=== PATIENT | male | born 1960 | race Caucasian/White ===

== ENCOUNTER → 2017-07-31 | Outpatient (CLI) | payer MEDICAID ==
[2017-07-31 07:55] LABS: Basophils # (A) 0.1 k/uL (0-0.2); Basophils % (A) 1 %; Eosinophils # (A) 0.5 k/uL (0-0.7); Eosinophils % (A) 5 %; HCT 47.2 % (39.0-53.0); HGB 14.9 gm/dL (13.0-17.5); Lymphocytes # (A) 2.5 k/uL (1.0-4.8); Lymphocytes % (A) 26 %; MCH 30.1 pg (25.0-35.0); MCHC 31.7 g/dL (31.0-37.0); Mean Platelet Volume 7.7; Monocytes # (A) 0.6 k/uL (0-1.0); Monocytes % (A) 6 %; Neutrophils # (A) 5.7 k/uL (1.3-7.7); Neutrophils % (A) 59 %; Platelet Count 273 k/uL (150-450); RBC 4.96 m/uL (4.30-5.90); RDW 12.4 % (11.5-15.5); WBC 9.7 k/uL (3.8-10.6)
[2017-07-31 10:37] LABS: ALT 30 U/L (21-72); AST 27 U/L (17-59); Albumin 4.7 g/dL (3.5-5.0); Alkaline Phosphatase 76 U/L (38-126); Anion Gap 10 mmol/L; Bilirubin, Delta 0.3 mg/dL (0.0-0.2); Bilirubin,Unconjugated 0.2 mg/dL (0.0-1.1); Blood Urea Nitrogen 19 mg/dL (9-20); Calcium 10.5 mg/dL (8.4-10.2); Carbon Dioxide 32 mmol/L (22-30); Chloride 103 mmol/L (98-107); Cholesterol 237 mg/dL (<200); Glucose 98 mg/dL (74-99); HDL Cholesterol 48 mg/dL (40-60); LDL Cholesterol,Calculated 168 mg/dL (0-99); Potassium 4.5 mmol/L (3.5-5.1); Sodium 145 mmol/L (137-145); Total Bilirubin 0.5 mg/dL (0.2-1.3); Total Protein 7.6 g/dL (6.3-8.2); Triglycerides 104 mg/dL (<150)
[2017-07-31 10:51] LABS: T4, Free (Free Thyroxine) 1.05 ng/dL (0.78-2.19)
[2017-07-31 11:05] LABS: Prostate Specific Antigen 0.69 ng/mL (0.00-4.00)
== END | disposition home or self-care (01) ==
LOC: LABWHC1 07:08
PROVIDERS: ATTEND Family Medicine
DX: Z00.00 Encounter for general adult medical examination without abnormal findings (principal)
CPT/HCPCS: 36415; 80053; 80061; 82248; 84153; 84439; 84443; 85025

== ENCOUNTER → 2019-03-31 | Outpatient (CLI) | payer MEDICAID ==
[2019-03-31 07:40] LABS: Basophils # (A) 0.1 k/uL (0-0.2); Basophils % (A) 1 %; Eosinophils # (A) 0.4 k/uL (0-0.7); Eosinophils % (A) 5 %; HCT 44.1 % (39.0-53.0); HGB 14.8 gm/dL (13.0-17.5); Lymphocytes # (A) 2.6 k/uL (1.0-4.8); Lymphocytes % (A) 31 %; MCH 30.2 pg (25.0-35.0); MCHC 33.6 g/dL (31.0-37.0); MCV 89.7 fL (80.0-100.0); Mean Platelet Volume 6.6; Monocytes # (A) 0.5 k/uL (0-1.0); Monocytes % (A) 6 %; Neutrophils # (A) 4.6 k/uL (1.3-7.7); Neutrophils % (A) 55 %; Platelet Count 314 k/uL (150-450); RBC 4.92 m/uL (4.30-5.90); RDW 12.6 % (11.5-15.5); WBC 8.4 k/uL (3.8-10.6)
[2019-03-31 11:31] LABS: African American GFR (CKD) 76.3 (60.0-200.0); Albumin 4.9 g/dL (3.80-4.90); Albumin/Globulin Ratio 2.45 (1.60-3.17); Anion Gap 10.5 mmol/L (4.00-12.00); BUN/Creat Ratio 11.67 Ratio (12.00-20.00); Calcium 10.3 mg/dL (8.7-10.3); Carbon Dioxide 28.5 mmol/L (21.6-31.8); Chol/HDL Ratio 4.45; LDL Cholesterol,Calculated 169.6 mg/dL (0.0-131.0); Potassium 4.5 mmol/L (3.5-5.5); Total Bilirubin 0.7 mg/dL (0.2-1.2); Total Protein 6.9 g/dL (6.2-8.2); VLDL Calculation 20.4 mg/dL (5.00-40.00)
== END | disposition home or self-care (01) ==
LOC: LABWHC1 06:58
PROVIDERS: ATTEND Family Medicine
DX: Z00.00 Encounter for general adult medical examination without abnormal findings (principal); E78.00 Pure hypercholesterolemia, unspecified; R35.1 Nocturia
CPT/HCPCS: 36415; 80053; 80061; 84153; 85025

== ENCOUNTER → 2021-01-17 | Outpatient (CLI) | payer MEDICAID ==
[2021-01-17 14:57] LABS: Basophils # (A) 0.05 X 10*3/uL (0.00-0.10); Basophils % (A) 0.5 %; Eosinophils # (A) 0.33 X 10*3/uL (0.04-0.35); Eosinophils % (A) 3.6 %; HCT 43.5 % (39.6-50.0); HGB 13.4 g/dL (13.0-17.0); Lymphocytes # (A) 2.01 X 10*3/uL (0.90-5.00); Lymphocytes % (A) 21.9 %; MCH 28.8 pg (27.0-32.0); MCHC 30.8 g/dL (32.0-37.0); MCV 93.5 fL (80.0-97.0); Mean Platelet Volume 11.2 fL (9.5-12.2); Monocytes % (A) 8.7 %; Neutrophils # (A) 5.95 X 10*3/uL (1.80-7.70); Platelet Count 274 X 10*3/uL (140-440); RBC 4.65 X 10*6/uL (4.40-5.60); RDW 13.4 % (11.5-14.5); WBC 9.17 X 10*3/uL (4.50-10.00)
[2021-01-17 15:57] LABS: African American GFR (CKD) 93.7 (60.0-200.0); Albumin 4.3 g/dL (3.80-4.90); Albumin/Globulin Ratio 2.05 (1.60-3.17); Chol/HDL Ratio 5.09; Globulin 2.1 g/dL (1.6-3.3); LDL Cholesterol,Calculated 148.4 mg/dL (0.0-131.0); Non-African American GFR(CKD) 80.9 (60.0-200.0); Potassium 4.1 mmol/L (3.5-5.5); Total Bilirubin 0.9 mg/dL (0.3-1.2); Total Protein 6.4 g/dL (6.2-8.2); VLDL Calculation 27.6 mg/dL (5.00-40.00)
[2021-01-17 16:04] LABS: Prostate Specific Antigen 0.5 ng/mL (0.0-4.5)
== END | disposition home or self-care (01) ==
LOC: LABWHC1 09:43
PROVIDERS: ATTEND Family Medicine
DX: Z00.00 Encounter for general adult medical examination without abnormal findings (principal); E78.00 Pure hypercholesterolemia, unspecified
CPT/HCPCS: 36415; 80053; 80061; 84153; 85025

== ENCOUNTER → 2021-05-19 | Outpatient (CLI) | payer MEDICAID ==
[2021-05-19 19:34] LABS: LDL Cholesterol,Calculated 118.1 mg/dL (0.0-131.0)
== END | disposition home or self-care (01) ==
LOC: LABWHC1 08:58
PROVIDERS: ATTEND Family Medicine
DX: E78.5 Hyperlipidemia, unspecified (principal)
CPT/HCPCS: 36415; 80061

== ENCOUNTER → 2023-02-15 | Outpatient (CLI) | payer MEDICAID ==
[2023-02-15 11:17] LABS: Basophils # (A) 0.07 X 10*3/uL (0.00-0.10); Basophils % (A) 0.8 %; Eosinophils # (A) 0.44 X 10*3/uL (0.04-0.35); Eosinophils % (A) 4.9 %; HCT 44.6 % (39.6-50.0); HGB 14.3 d/dL (13.0-17.0); Lymphocytes % (A) 30.1 %; MCH 30.1 pg (27.0-32.0); MCHC 32.1 d/dL (32.0-37.0); MCV 93.9 FL (80.0-97.0); Mean Platelet Volume 11.3 FL (9.5-12.2); Monocytes # (A) 0.81 X 10*3/uL (0.20-1.00); NRBC Per 100 WBC 0 X 10*3/uL (0.00-0.01); Neutrophils # (A) 4.93 X 10*3/uL (1.80-7.70); Neutrophils % (A) 54.9 %; Platelet Count 269 X 10*3/uL (140-440); RBC 4.75 X 10*6/uL (4.40-5.60); RDW 13.2 % (11.5-14.5); WBC 8.98 X 10*3/uL (4.50-10.00)
[2023-02-15 11:24] LABS: ALT 31 U/L (10-49); AST 27 U/L (14-35); Albumin/Globulin Ratio 2.08 Ratio (1.60-3.17); Alkaline Phosphatase 91 U/L (41-126); BUN/Creat Ratio 9.58 Ratio (12.00-20.00); Blood Urea Nitrogen 11.5 mg/dL (9.0-27.0); Calcium 10.2 mg/dL (8.7-10.3); Carbon Dioxide 25.8 mmol/L (21.6-31.8); Chloride 105 mmol/L (96-109); Chol/HDL Ratio 3.16 Ratio; Globulin 2.4 d/dL (1.6-3.3); Glucose 104 mg/dL (70-110); LDL Cholesterol,Calculated 86.9 mg/dL (0.0-131.0); Potassium 4.1 mmol/L (3.5-5.5); Sodium 145 mmol/L (135-145); Total Bilirubin 0.6 mg/dL (0.3-1.2); Total Protein 7.4 d/dL (6.2-8.2)
== END | disposition home or self-care (01) ==
LOC: LABWHC1 07:20
PROVIDERS: ATTEND Family Medicine
DX: Z12.5 Encounter for screening for malignant neoplasm of prostate (principal); E78.5 Hyperlipidemia, unspecified
CPT/HCPCS: 80061; 80053; 85025; 36415; G0103

== ENCOUNTER → 2023-04-30 | Outpatient (CLI) | payer MEDICAID ==
--- NOTE | 2023-04-30 10:52 | CT ---
EXAMINATION TYPE: CT abdomen w con CT DLP: 1165 mGycm, Automated exposure control for dose reduction was used. DATE OF EXAM: 04/30/2023 10:38 AM COMPARISON: None CLINICAL INDICATION:Male, 62 years old with history of R14.0 ABDOMINAL BLOATING; Bloating TECHNIQUE: Standard CT of the abdomen following the administration of 100 cc of Isovue 300 IV contr ast material and oral contrast. Coronal and sagittal reformats were performed. FINDINGS: LOWER CHEST: Unremarkable ABDOMEN LIVER: Several cysts identified with largest in the left hepatic lobe measuring up to 2.0 cm. Additio nal innumerable subcentimeter hypodense foci likely representing cysts or biliary hamartomas. GALLBLADDER AND BILE DUCTS: Unremarkable. PANCREAS: Unremarkable. SPLEEN: Subcentimeter hypodense focus identified which is too small characters but likely represents a benign process. ADRENAL GLANDS: Unremarkable. KIDNEYS AND URETERS: No evidence of hydronephrosis or renal calculus. The kidneys enhance symmetrical ly. Subcentimeter hypodense focus within the left mid kidney which is too small characters but likely represents a cyst. Contrast demonstrated within both collecting systems on the delayed phase. Circum aortic left renal vein. STOMACH AND BOWEL: Stomach appears unremarkable. Contrast reaches the mid small bowel. There is pneum atosis involving the ascending colon. Fluid and gas-filled dilated diffuse small bowel identified norbert suring up to 4.7 cm. Stool and gas identified within the visualized portions of the colon with transi tion at the visualized sigmoid. The ascending colon measures up to 8.6 cm in diameter. No bowel wall thickening identified or surrounding fat stranding. The appendix is within normal limits. PERITONEUM: No evidence of pneumoperitoneum or free fluid. VASCULATURE: No evidence of aortic aneurysm. The visualized vasculature appears widely patent. MUSCULOSKELETAL: No acute osseous abnormalities LYMPH NODES: No gross evidence for lymphadenopathy. SOFT TISSUE/ABDOMINAL WALL: Unremarkable IMPRESSION: Gas and fluid-filled dilated small bowel and colon suggesting an ileus versus possible distal colonic obstruction. Nonspecific pneumatosis identified within the ascending colon. Could be seen with ische chikis however doubtful. Consider further evaluation with CT abdomen pelvis with IV and oral contrast.
== END | disposition home or self-care (01) ==
LOC: RADCTMAIN 09:15
PROVIDERS: ATTEND Family Medicine
DX: K63.89 Other specified diseases of intestine (principal); R14.0 Abdominal distension (gaseous)
CPT/HCPCS: 74160; Q9967

== ENCOUNTER 2023-06-13 12:04 | Inpatient (IN) | payer MEDICAID ==
--- NOTE | 2023-06-13 13:10 | ED ---
General Adult HPI - General Source: patient, RN notes reviewed Mode of arrival: ambulatory Limitations: no limitations <Chelsea Ward - Last Filed: 06/13/23 13:11> <James Li - Last Filed: 06/13/23 17:29> - General Chief complaint: Abdominal Pain Stated complaint: abd pain Time Seen by Provider: 06/13/23 13:11 - History of Present Illness Initial comments: 62-year-old male presents to the emergency department for chief complaint of left sided abdominal pain. He states it has been dealing with this since April and has gone to see Dr. Del Rosario multiple times. The pain has been worse for the past 2 days. He states that he was initially diagnosed with colitis then with diverticulitis. He has not been on antibiotics. Denies fever. Admits to loose stools. (Chelsea Ward) This is a 62-year-old male who presents emergency Department complaining of abdominal pain for last 2 months. Patient stated he had a CAT scan and was told he probably had diverticulitis. Patient states his abdomen is getting more distended over that period of time he is having occasional pain but no nausea or vomiting. Patient states she's not had any gas passing or stool recently. Patient denies any fever or chills. Patient states as of the last couple days he started having some difficulty breathing particularly with exertion. Patient states eating and drinking but not anywhere near as much is normal. Patient states his last colonoscopy was 10 years ago. Patient denies any back pain. (James Li) - Related Data Home Medications Medication Instructions Recorded Confirmed Atorvastatin [Lipitor] 40 mg PO PC-SUPPER 06/13/23 06/13/23 Cetirizine HCl [Zyrtec] 10 mg PO DAILY 06/13/23 06/13/23 Allergies Allergy/AdvReac Type Severity Reaction Status Date / Time No Known Allergies Allergy Verified 06/13/23 15:56 Review of Systems ROS Other: All systems not noted in ROS Statement are negative. <Chelsea Ward - Last Filed: 06/13/23 13:11> ROS Other: All systems not noted in ROS Statement are negative. <James Li - Last Filed: 06/13/23 17:29> ROS Statement: Those systems with pertinent positive or pertinent negative responses have been documented in the HPI. Past Medical History Past Medical History: GI Bleed History of Any Multi-Drug Resistant Organisms: None Reported Past Surgical History: Hernia Repair Past Psychological History: No Psychological Hx Reported Smoking Status: Never smoker Past Alcohol Use History: Rare Past Drug Use History: None Reported <Chelsea Ward - Last Filed: 06/13/23 13:11> General Exam Limitations: no limitations <Chelsea Ward - Last Filed: 06/13/23 13:11> <James Li - Last Filed: 06/13/23 17:29> - General Exam Comments Initial Comments: Visual Physical Exam Vital signs reviewed General: Well-appearing, nontoxic, no acute distress. Head: Normocephalic, atraumatic Eyes: PERRLA, EOMI ENT: Airway patent Chest: Nonlabored breathing Skin: No visual rash, normal skin tone Neuro: Alert and oriented 3 Musculoskeletal: No gross abnormalities (Chelsea Ward) GENERAL: Patient is well-developed and well-nourished. Patient is nontoxic and well-hydrated and is in mild distress. ENT: Neck is soft and supple. No significant lymphadenopathy is noted. Oropharynx is clear. Moist mucous membranes. Neck has full range of motion without eliciting any pain. EYES: The sclera were anicteric and conjunctiva were pink and moist. Extraocular movements were intact and pupils were equal round and reactive to light. Eyelids were unremarkable. PULMONARY: Unlabored respirations. Good breath sounds bilaterally. No audible rales rhonchi or wheezing was noted. CARDIOVASCULAR: She was tachycardic at about 130 beats a minute ABDOMEN: Abdomen is significantly distended. Bowel sounds are hyperactive SKIN: Skin is clear with no lesions or rashes and otherwise unremarkable. NEUROLOGIC: Patient is alert and oriented x3. Cranial nerves II through XII are grossly intact. Motor and sensory are also intact. Normal speech, volume and content. Symmetrical smile. MUSCULOSKELETAL: Normal extremities with adequate strength and full range of motion. Scant edema bilaterally LYMPHATICS: No significant lymphadenopathy is noted PSYCHIATRIC: Normal psychiatric evaluation. (James Li) Course Vital Signs 06/13/23 06/13/23 06/13/23 12:11 14:28 15:35 Temperature 97.5 F L Pulse Rate 142 H 125 H 109 H Respiratory 20 18 18 Rate Blood Pressure 106/69 117/94 136/92 O2 Sat by Pulse 99 95 96 Oximetry 06/13/23 16:26 Temperature Pulse Rate 105 H Respiratory 18 Rate Blood Pressure 150/94 O2 Sat by Pulse 95 Oximetry Medical Decision Making <Chelsea Ward - Last Filed: 06/13/23 13:11> - Lab Data Result diagrams: 06/13/23 12:57 06/13/23 12:57 <James Li - Last Filed: 06/13/23 17:29> - Medical Decision Making Quick note preformed by Chelsea Ward PA-C (Chelsea Ward) EKG is interpreted by myself. EKG shows a sinus tachycardia at 127 bpm WA interval 235 QRS is 6640 QT interval 328 QTC is 43. Patient's EKG shows Q waves in inferior leads 3 and aVF Was pt. sent in by a medical professional or institution (NIKOLAI Pinon, SENIOR TALENT MANAGEMENT CONSULTANT, urgent care, hospital, or senior living...) When possible be specific @ -No Did you speak to anyone other than the patient for history (EMS, parent, family, police, friend...)? What history was obtained from this source @ -No Did you review nursing and triage notes (agree or disagree)? Why? @ -I reviewed and agree with nursing and triage notes Were old charts reviewed (outside hosp., previous admission, EMS record, old EKG, old radiological studies, urgent care reports/EKG's, senior living records)? Report findings @ -I reviewed Prior radiological studies prior labwork on this patient. Differential Diagnosis (chest pain, altered mental status, abdominal pain women, abdominal pain men, vaginal bleeding, weakness, fever, dyspnea, syncope, headache, dizziness, GI bleed, back pain, seizure, CVA, palpatations, mental health, musculoskeletal)? @ -Differential Abdominal Pain Men: Appendicitis, cholecystitis, diverticulosis, ischemic bowel, pancreatitis, hepatitis, UTI, gastroenteritis, AAA, incarcerated hernia, bowel obstruction, constipation, inflammatory bowel, hepatitis, peptic ulcer disease, splenic infarction, perforated viscus, testicular torsion, this is not meant to be an all-inclusive list EKG interpreted by me (3pts min.). @ -As above X-rays interpreted by me (1pt min.). @ -KUB shows a bowel obstruction CT interpreted by me (1pt min.). @ -Computed tomography scan shows a bowel obstruction with a possible neoplasm as the reason for the obstruction U/S interpreted by me (1pt. min.). @ -None done What testing was considered but not performed or refused? (CT, X-rays, U/S, labs)? Why? @ -None What meds were considered but not given or refused? Why? @ -None Did you discuss the management of the patient with other professionals (professionals i.e. Dr., PA, SENIOR TALENT MANAGEMENT CONSULTANT, lab, RT, psych nurse, transition social worker, aircraft armament mechanic, teacher, eeo officer, piano case and bench assembler)? Give summary @ -Woke with Dr. Del Rosario he agreed to admit the patient admitted the patient I consult to Dr. Montemayor and I consult oncology Was smoking cessation discussed for >3mins.? @ -No Was critical care preformed (if so, how long)? @ -No Were there social determinants of health that impacted care today? How? (Homelessness, low income, unemployed, alcoholism, drug addiction, transportati on, low edu. Level, literacy, decrease access to med. care, nursing home, rehab)? @ -No Was there de-escalation of care discussed even if they declined (Discuss DNR or withdrawal of care, Hospice)? DNR status @ -No What co-morbidities impacted this encounter? (DM, HTN, Smoking, COPD, CAD, Cancer, CVA, ARF, Chemo, Hep., AIDS, mental health diagnosis, sleep apnea, morbid obesity)? @ -None Was patient admitted / discharged? Hospital course, mention meds given and route, prescriptions, significant lab abnormalities, going to OR and other pertinent info. @ -Given Dilaudid for pain he remained comfortable after that. An NG tube was placed. Patient was diagnosed with a bowel obstruction with probable neoplasm Undiagnosed new problem with uncertain prognosis? @ -No Drug Therapy requiring intensive monitoring for toxicity (Heparin, Nitro, Insulin, Cardizem)? @ -No Were any procedures done? @ -No Diagnosis/symptom? @ -Small bowel obstruction Acute, or Chronic, or Acute on Chronic? @ -Acute Uncomplicated (without systemic symptoms) or Complicated (systemic symptoms)? @ -Complicated Side effects of treatment? @ -No Exacerbation, Progression, or Severe Exacerbation? @ -No Poses a threat to life or bodily function? How? (Chest pain, USA, MS, pneumonia, PE, COPD, DKA, ARF, appy, cholecystitis, CVA, Diverticulitis, Homicidal, Suicidal, threat to staff... and all critical care pts) @ -Yes this can lead to sepsis and significant morbidity or mortality (James Li) - Lab Data Lab Results 06/13/23 06/13/23 06/13/23 Range/Units 12:57 12:57 12:57 WBC 11.7 H (3.8-10.6) k/uL RBC 4.75 (4.30-5.90) m/uL Hgb 14.5 (13.0-17.5) gm/dL Hct 44.0 (39.0-53.0) % MCV 92.7 (80.0-100.0) fL MCH 30.6 (25.0-35.0) pg MCHC 33.0 (31.0-37.0) g/dL RDW 14.3 (11.5-15.5) % Plt Count 696 H (150-450) k/uL MPV 8.2 Neutrophils % 74 % Lymphocytes % 17 % Monocytes % 6 % Eosinophils % 0 % Basophils % 0 % Neutrophils # 8.7 H (1.3-7.7) k/uL Lymphocytes # 2.0 (1.0-4.8) k/uL Monocytes # 0.7 (0-1.0) k/uL Eosinophils # 0.0 (0-0.7) k/uL Basophils # 0.1 (0-0.2) k/uL PT (10.0-12.5) sec INR (<1.2) APTT (22.0-30.0) sec D-Dimer (<0.60) mg/L FEU Sodium 136 L (137-145) mmol/L Potassium 4.3 (3.5-5.1) mmol/L Chloride 98 (98-107) mmol/L Carbon Dioxide 19 L (22-30) mmol/L Anion Gap 19 mmol/L BUN 23 H (9-20) mg/dL Creatinine 1.48 H (0.66-1.25) mg/dL Est GFR (CKD-EPI)AfAm 58 (>60 ml/min/1.73 sqM) Est GFR (CKD-EPI)NonAf 50 (>60 ml/min/1.73 sqM) Glucose 130 H (74-99) mg/dL Lactic Ac Sepsis Rflx Plasma Lactic Acid Frandy (0.7-2.0) mmol/L Calcium 9.8 (8.4-10.2) mg/dL Magnesium 1.6 (1.6-2.3) mg/dL Total Bilirubin 1.0 (0.2-1.3) mg/dL AST 27 (17-59) U/L ALT 21 (4-49) U/L Alkaline Phosphatase 142 H (38-126) U/L Troponin I (0.000-0.034) ng/mL Total Protein 7.2 (6.3-8.2) g/dL Albumin 3.9 (3.5-5.0) g/dL Amylase 33 (30-110) U/L Lipase 64 (23-300) U/L 06/13/23 06/13/23 06/13/23 Range/Units 14:06 14:06 14:07 WBC (3.8-10.6) k/uL RBC (4.30-5.90) m/uL Hgb (13.0-17.5) gm/dL Hct (39.0-53.0) % MCV (80.0-100.0) fL MCH (25.0-35.0) pg MCHC (31.0-37.0) g/dL RDW (11.5-15.5) % Plt Count (150-450) k/uL MPV Neutrophils % % Lymphocytes % % Monocytes % % Eosinophils % % Basophils % % Neutrophils # (1.3-7.7) k/uL Lymphocytes # (1.0-4.8) k/uL Monocytes # (0-1.0) k/uL Eosinophils # (0-0.7) k/uL Basophils # (0-0.2) k/uL PT 12.4 (10.0-12.5) sec INR 1.2 H (<1.2) APTT 25.4 (22.0-30.0) sec D-Dimer 0.40 (<0.60) mg/L FEU Sodium (137-145) mmol/L Potassium (3.5-5.1) mmol/L Chloride (98-107) mmol/L Carbon Dioxide (22-30) mmol/L Anion Gap mmol/L BUN (9-20) mg/dL Creatinine (0.66-1.25) mg/dL Est GFR (CKD-EPI)AfAm (>60 ml/min/1.73 sqM) Est GFR (CKD-EPI)NonAf (>60 ml/min/1.73 sqM) Glucose (74-99) mg/dL Lactic Ac Sepsis Rflx Plasma Lactic Acid Frandy 4.9 H* (0.7-2.0) mmol/L Calcium (8.4-10.2) mg/dL Magnesium (1.6-2.3) mg/dL Total Bilirubin (0.2-1.3) mg/dL AST (17-59) U/L ALT (4-49) U/L Alkaline Phosphatase (38-126) U/L Troponin I 0.020 (0.000-0.034) ng/mL Total Protein (6.3-8.2) g/dL Albumin (3.5-5.0) g/dL Amylase (30-110) U/L Lipase (23-300) U/L / Range/Units 14:48 WBC (3.8-10.6) k/uL RBC (4.30-5.90) m/uL Hgb (13.0-17.5) gm/dL Hct (39.0-53.0) % MCV (80.0-100.0) fL MCH (25.0-35.0) pg MCHC (31.0-37.0) g/dL RDW (11.5-15.5) % Plt Count (150-450) k/uL MPV Neutrophils % % Lymphocytes % % Monocytes % % Eosinophils % % Basophils % % Neutrophils # (1.3-7.7) k/uL Lymphocytes # (1.0-4.8) k/uL Monocytes # (0-1.0) k/uL Eosinophils # (0-0.7) k/uL Basophils # (0-0.2) k/uL PT (10.0-12.5) sec INR (<1.2) APTT (22.0-30.0) sec D-Dimer (<0.60) mg/L FEU Sodium (137-145) mmol/L Potassium (3.5-5.1) mmol/L Chloride (98-107) mmol/L Carbon Dioxide (22-30) mmol/L Anion Gap mmol/L BUN (9-20) mg/dL Creatinine (0.66-1.25) mg/dL Est GFR (CKD-EPI)AfAm (>60 ml/min/1.73 sqM) Est GFR (CKD-EPI)NonAf (>60 ml/min/1.73 sqM) Glucose (74-99) mg/dL Lactic Ac Sepsis Rflx Y Plasma Lactic Acid Frandy (0.7-2.0) mmol/L Calcium (8.4-10.2) mg/dL Magnesium (1.6-2.3) mg/dL Total Bilirubin (0.2-1.3) mg/dL AST (17-59) U/L ALT (4-49) U/L Alkaline Phosphatase (38-126) U/L Troponin I (0.000-0.034) ng/mL Total Protein (6.3-8.2) g/dL Albumin (3.5-5.0) g/dL Amylase (30-110) U/L Lipase (23-300) U/L Disposition <Chelsea Ward - Last Filed: 06/13/23 13:11> Time of Disposition: 17:29 <James Li - Last Filed: 06/13/23 17:29> Clinical Impression: Small bowel obstruction Disposition: ADMITTED IP TO THIS HOSP Referrals: Demario Del Rosario Jr, DO [Primary Care Provider] - 1-2 days
[2023-06-13 13:24] LABS: Basophils # (A) 0.1 k/uL (0-0.2); Basophils % (A) 0 %; Eosinophils % (A) 0 %; HGB 14.5 gm/dL (13.0-17.5); Lymphocytes % (A) 17 %; MCH 30.6 pg (25.0-35.0); MCV 92.7 fL (80.0-100.0); Mean Platelet Volume 8.2; Monocytes # (A) 0.7 k/uL (0-1.0); Monocytes % (A) 6 %; Neutrophils # (A) 8.7 k/uL (1.3-7.7); Neutrophils % (A) 74 %; Platelet Count 696 k/uL (150-450); RBC 4.75 m/uL (4.30-5.90); RDW 14.3 % (11.5-15.5); WBC 11.7 k/uL (3.8-10.6)
--- NOTE | 2023-06-13 13:36 | XR ---
EXAMINATION TYPE: XR KUB DATE OF EXAM: 06/13/2023 COMPARISON: NONE HISTORY: Pain TECHNIQUE: Single supine KUB image of the abdomen is obtained FINDINGS: Dilated small and large bowel with air-fluid levels seen compatible with obstruction. No convincing evidence for pneumoperitoneum. No unusual calcifications. The lung bases are clear. The osseous structures are intact. IMPRESSION: 1. Dilated small and large bowel with air-fluid levels seen compatible with obstruction.
[2023-06-13 13:40] LABS: ALT 21 U/L (4-49); AST 27 U/L (17-59); African American GFR (CKD) 58 (>60 ml/min/1.73 sqM); Albumin 3.9 g/dL (3.5-5.0); Alkaline Phosphatase 142 U/L (38-126); Amylase 33 U/L (30-110); Anion Gap 19 mmol/L; Blood Urea Nitrogen 23 mg/dL (9-20); Calcium 9.8 mg/dL (8.4-10.2); Carbon Dioxide 19 mmol/L (22-30); Chloride 98 mmol/L (98-107); Glucose 130 mg/dL (74-99); Lipase 64 U/L (23-300); Non-African American GFR(CKD) 50 (>60 ml/min/1.73 sqM); Potassium 4.3 mmol/L (3.5-5.1); Sodium 136 mmol/L (137-145); Total Protein 7.2 g/dL (6.3-8.2)
[2023-06-13] MEDS ORDERED: HYDROmorphone 0.5 MG/0.5 ML SYRINGE IVP STA (13:58)
[2023-06-13] MEDS ORDERED: SODIUM CHLORIDE 0.9% 1,000 ML IV ONE ×2 (13:58→17:32)
[2023-06-13 14:28] LABS: INR 1.2 (<1.2); Partial Thromboplastin Time 25.4 sec (22.0-30.0); Prothrombin Time 12.4 sec (10.0-12.5)
--- NOTE | 2023-06-13 15:14 | CT ---
EXAMINATION TYPE: CT abdomen pelvis w con DATE OF EXAM: 06/13/2023 COMPARISON: 04/30/2023 HISTORY: Distended abdomen and weight loss CT DLP: 977.3 mGycm CONTRAST: CT scan of the abdomen and pelvis is performed without Oral Contrast and with IV Contrast, patient in jected with 80ml mL of Isovue 300. FINDINGS: LUNG BASES-: No visible nodule. No infiltrate. LIVER/GB: No calcified gallstones. Multiple hypoattenuating lesions are redemonstrated throughout t he liver which may reflect cysts. Small metastatic lesions difficult to exclude. Biliary tree is of n ormal caliber. PANCREAS: No inflammation. No distinct mass. SPLEEN: No splenic enlargement. No lesion seen. ADRENALS: No nodule. No thickening. KIDNEYS/BLADDER: No hydronephrosis. No nephrolithiasis. No distinct renal mass. Urinary bladder g rossly unremarkable. BOWEL: There is dilated small and large bowel. Small bowel is dilated to 5.1 cm with large bowel dila bandar up to 8.3 cm. There is mass thickening involving the proximal sigmoid colon. I suspect underlying neoplasm. Direct visualization is recommended. The sigmoid colon is collapsed. There is no evidence for abscess or pneumoperitoneum. GENITAL ORGANS: No gross abnormality. LYMPH NODES: No greater than 1cm abdominal or pelvic lymph nodes are appreciated. AORTA: No significant abnormality. OSSEOUS STRUCTURES: No significant abnormality is seen. OTHER: No significant additional abnormality is seen. IMPRESSION: 1. Small and large bowel obstruction felt to be related to neoplasm at the level of the proximal sigm oid colon. Direct visualization is recommended. 2. Multiple hypoattenuating lesions throughout the liver may reflect cysts although metastatic diseas e is difficult to exclude.
--- NOTE | 2023-06-13 15:46 | XR ---
EXAMINATION TYPE: XR chest 1V confirm line [facility] DATE OF EXAM: 06/13/2023 HISTORY: Shortness of breath. COMPARISON: None. TECHNIQUE: Single view of the chest is submitted. FINDINGS: Demonstrated are scattered senescent parenchymal change. NG tube is seen coursing into the stomach. Dilated small and large bowel noted. There is no evidence for focal infiltrate. The heart is stable. Hilar and mediastinal structures are within normal limits. Degenerative changes are seen of the dorsal spine. IMPRESSION: 1. Chronic changes without evidence for acute pulmonary disease.
[2023-06-13 18:45] LABS: Bacteria,Urine Occasional /hpf; Mucus,Urine Rare /hpf; RBC,Urine 40 /hpf (0-5); Squamous Epithelial Cell,Urine 3 /hpf (0-4); WBC,Urine >182 /hpf (0-5)
[2023-06-13 18:49] LABS: Appearance,Urine Turbid (Clear); Bilirubin,Urine 1+ (Negative); Blood,Urine Large (Negative); Color,Urine Light Yellow; Glucose,Urine (UA) Negative (Negative); Ketones,Urine 1+ (Negative); Protein,Urine Trace (Negative)
[2023-06-13 18:50] LABS: Leukocyte Esterase,Urine Small (Negative); Nitrite,Urine Negative (Negative); Urobilinogen,Urine <2.0 mg/dL (<2.0)
--- NOTE | 2023-06-13 19:14 | P.HPIM ---
History of Present Illness H&P Date: 06/13/23 Chief Complaint: Abdominal, small bowel obstruction He is complaining with abdominal bloating and flatulence for approximately the last 2 months patient presented to the emergency room with inability to pass gas or stool and significant abdominal pain, approximately 4 weeks ago he had a CT of the abdomen with no findings patient presented to the emergency room at [facility] today with symptoms and findings consistent with the small bowel obstruction and possible mass Review of Systems Constitutional: Reports anorexia, Reports weakness, Reports weight loss Ears, nose, mouth and throat: Reports as per HPI Cardiovascular: Reports high blood pressure Respiratory: Reports as per HPI Gastrointestinal: Reports abdominal pain (Nausea no vomiting no flatus no stool) Musculoskeletal: Reports as per HPI Integumentary: Reports as per HPI Neurological: Reports as per HPI Past Medical History Past Medical History: GI Bleed, Hypertension History of Any Multi-Drug Resistant Organisms: None Reported Past Surgical History: Hernia Repair Past Psychological History: No Psychological Hx Reported Smoking Status: Never smoker Past Alcohol Use History: Rare Past Drug Use History: None Reported Medications and Allergies Home Medications Medication Instructions Recorded Confirmed Type Atorvastatin [Lipitor] 40 mg PO PC-SUPPER 06/13/23 06/13/23 History Cetirizine HCl [Zyrtec] 10 mg PO DAILY 06/13/23 06/13/23 History Allergies Allergy/AdvReac Type Severity Reaction Status Date / Time No Known Allergies Allergy Verified 06/13/23 15:56 Physical Exam Osteopathic Statement: *. No significant issues noted on an osteopathic structural exam other than those noted in the History and Physical/Consult. Vitals: Vital Signs Temp Pulse Resp BP Pulse Ox 06/13/23 18:49 100 18 143/94 96 06/13/23 16:26 105 H 18 150/94 95 06/13/23 15:35 109 H 18 136/92 96 06/13/23 14:28 125 H 18 117/94 95 06/13/23 12:11 97.5 F L 142 H 20 106/69 99 Intake and Output 06/13/23 06/13/23 06/13/23 06:59 14:59 22:59 Other: Weight 73.936 kg General: [Patient awake, alert and oriented times 3. Patient in no acute distress.] HEENT: [PERRL. EOMI. No pharyngeal erythema or exudate.] Neck: [No adenopathy.] Cardiac: [Heart regular in rate and rhythm. No S3. No S4. No clicks, rubs. No murmur.] Lungs: [Clear to auscultation bilaterally.] Abdomen: Round hypertympanic little or no bowel sounds, diffuse discomfort Extremes: [No edema no cyanosis no claudication normal pulses] : Normal male genitalia Musculoskeletal: [No joint erythema, edema or tenderness.] Skin: [No rash.] Neurologic: [No lateralizing deficits. CN II - XII grossly intact.] Lymphatic: [No adenopathy.] Results CBC & Chem 7: 06/13/23 12:57 06/13/23 12:57 Labs: Abnormal Lab Results - Last 24 Hours (Table) 06/13/23 06/13/23 06/13/23 Range/Units 12:57 12:57 12:57 WBC 11.7 H (3.8-10.6) k/uL Plt Count 696 H (150-450) k/uL Neutrophils # 8.7 H (1.3-7.7) k/uL INR (<1.2) Sodium 136 L (137-145) mmol/L Carbon Dioxide 19 L (22-30) mmol/L BUN 23 H (9-20) mg/dL Creatinine 1.48 H (0.66-1.25) mg/dL Glucose 130 H (74-99) mg/dL Plasma Lactic Acid Frandy (0.7-2.0) mmol/L Alkaline Phosphatase 142 H (38-126) U/L Urine Protein Trace H (Negative) Urine Ketones 1+ H (Negative) Urine Blood Large H (Negative) Ur Leukocyte Esterase Small H (Negative) Urine RBC 40 H (0-5) /hpf Urine WBC >182 H (0-5) /hpf Urine WBC Clumps Many H (None) /hpf Urine Bacteria Occasional H (None) /hpf Urine Mucus Rare H (None) /hpf 06/13/23 06/13/23 Range/Units 14:06 14:07 WBC (3.8-10.6) k/uL Plt Count (150-450) k/uL Neutrophils # (1.3-7.7) k/uL INR 1.2 H (<1.2) Sodium (137-145) mmol/L Carbon Dioxide (22-30) mmol/L BUN (9-20) mg/dL Creatinine (0.66-1.25) mg/dL Glucose (74-99) mg/dL Plasma Lactic Acid Frandy 4.9 H* (0.7-2.0) mmol/L Alkaline Phosphatase (38-126) U/L Urine Protein (Negative) Urine Ketones (Negative) Urine Blood (Negative) Ur Leukocyte Esterase (Negative) Urine RBC (0-5) /hpf Urine WBC (0-5) /hpf Urine WBC Clumps (None) /hpf Urine Bacteria (None) /hpf Urine Mucus (None) /hpf Thrombosis Risk Factor Assmnt - DVT/VTE Prophylaxis DVT/VTE Prophylaxis: Pharmacologic Prophylaxis ordered Assessment and Plan (1) Gastrointestinal neoplasm Current Visit: Yes Status: Acute Code(s): D49.0 - NEOPLASM OF UNSPECIFIED BEHAVIOR OF DIGESTIVE SYSTEM SNOMED Code(s): 108423283 (2) Small bowel obstruction Current Visit: Yes Status: Acute Code(s): K56.609 - UNSP INTESTNL OBST, UNSP TO PARTIAL VERSUS COMPLETE OBST SNOMED Code(s): 470460501 Plan: Abdomen that patient to hospital IV fluids Pain management Consult surgery Reevaluate patient in the morning
[2023-06-14] MEDS: HYDROmorphone 0.5 MG/0.5 ML SYRINGE IVP PRN ×3 (08:58→23:23)
[2023-06-14] MEDS ORDERED: Magnesium Replacement Protocol 1 EACH MISC MISCELLANE PRN (09:53)
[2023-06-14] MEDS ORDERED: MAGNESIUM SULFATE-D5W PMX 1 GM in DEXTROSE/WATER 1 100ML.BAG IVPB ONE (10:00)
[2023-06-14] MEDS: SODIUM CHLORIDE 0.9% 1,000 ML IV SCH ×2 (10:15→23:23)
[2023-06-14] MEDS: PANTOPRAZOLE 40 MG/10 ML VIAL IVP SCH (10:15)
[2023-06-14 12:36] VITALS: BMI 24.7
--- NOTE | 2023-06-14 15:05 | P.PN ---
Subjective Progress Note Date: 06/14/23 H&P Date: 06/13/23 Chief Complaint: Abdominal, small bowel obstruction He is complaining with abdominal bloating and flatulence for approximately the last 2 months patient presented to the emergency room with inability to pass gas or stool and significant abdominal pain, approximately 4 weeks ago he had a CT of the abdomen with no findings patient presented to the emergency room at [facility] today with symptoms and findings consistent with the small bowel obstruction and possible mass. 06/14/2023 Pain controlled on current medication regimen. No flatus, reports watery bowel movement with small bits of stool. Discloses unintentional weight loss of 37 pounds since April 13. Last colonoscopy was greater than [address] Cerda. NPO. Denies chest pain, palpitations or shortness of breath. Maintaining O2 sats in the 90s on room air. Afebrile. Lactic acidosis resolved. NG tube currently out. Denies nausea or vomiting. Objective - Vital Signs Vital signs: Vital Signs Temp 98.2 F 06/14/23 07:51 Pulse 99 06/14/23 07:51 Resp 18 06/14/23 07:51 BP 125/69 06/14/23 07:51 Pulse Ox 96 06/14/23 07:51 FiO2 Intake & Output 06/13/23 06/14/23 06/14/23 18:59 06:59 18:59 Intake Total 0 0 Balance 0 0 Weight 73.936 kg 73.936 kg 73.936 kg Intake: Oral 0 0 Other: Voiding Method Toilet Toilet # Voids 1 1 - Exam General: Alert and oriented 3, sitting up in bed, no acute distress. HEENT: Normocephalic, PERRL. EOMI. Neck: Supple, no JVD Cardiac: [Heart regular in rate and rhythm. No S3. No S4. No clicks, rubs. No murmur. Lungs: Unlabored, equal air entry, Clear to auscultation bilaterally. Abdomen: Round hypertympanic little or no bowel sounds, diffuse discomfort Extremes: [No edema no cyanosis no claudication normal pulses] Skin: Warm and dry, no rashes noted Neurologic: CN II - XII grossly intact. No focal deficits - Labs CBC & Chem 7: 06/13/23 12:57 06/13/23 12:57 Labs: Abnormal Lab Results - Last 24 Hours (Table) 06/13/23 06/13/23 06/13/23 Range/Units 12:57 14:06 14:07 INR 1.2 H (<1.2) Plasma Lactic Acid Frandy 4.9 H* (0.7-2.0) mmol/L Urine Protein Trace H (Negative) Urine Ketones 1+ H (Negative) Urine Blood Large H (Negative) Ur Leukocyte Esterase Small H (Negative) Urine RBC 40 H (0-5) /hpf Urine WBC >182 H (0-5) /hpf Urine WBC Clumps Many H (None) /hpf Urine Bacteria Occasional H (None) /hpf Urine Mucus Rare H (None) /hpf Assessment and Plan Assessment: (1) Gastrointestinal neoplasm, 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 Current Visit: Yes Status: Acute Code(s): D49.0 - NEOPLASM OF UNSPECIFIED BEHAVIOR OF DIGESTIVE SYSTEM SNOMED Code(s): 527710054 (2) Small bowel obstruction Current Visit: Yes Status: Acute Code(s): K56.609 - UNSP INTESTNL OBST, UNSP TO PARTIAL VERSUS COMPLETE OBST SNOMED Code(s): 858557916 (3) unintentional weight loss of 37 pounds over the last 2 months (4) dehydration (5) acute renal failure secondary to the above (6) lactic acidosis, resolved (7) hypomagnesemia Plan: Continue on current medication regime ,monitoring and symptomatic treatment. NPO. IV fluid hydration, magnesium supplementation ordered. Aggr essive pulmonary toileting with incentive spirometer ordered ordered. Close monitoring of renal function with repeat labs ordered for a.m. Gen. surgery consult in place, recommendations pending. Tumor markers ordered. Oncology consulted.Prognosis guarded given multiple complex medical issues. The impression and plan of care has been dictated as directed. : I performed a history and examination of this patient, discussed the same with the dictator. I agree with the dictator's note ,documented as a scribe. Any additional findings or plans will be noted.
--- NOTE | 2023-06-14 15:48 | P.GSCN ---
History of Present Illness Consult date: 06/14/23 History of present illness: CHIEF COMPLAINT: Left-sided abdominal pain HISTORY OF PRESENT ILLNESS: This is a 62-year-old male who presented with left- sided abdominal pain, abdominal distention increased weakness and weight loss since April. Patient reports that he initially went to see his PCP in the end of April and he reports he had a computed tomography scan completed at that time and was treated for diverticulitis. He reports having adjustments made to his diet. Patient continued to have abdominal distention and intermittent left- sided abdominal pain. He reports the pain can reach to 9 out of 10. He reports decrease in appetite. His stools have been loose. Last bowel movement was this morning there's been no blood in the stools. He is having some flatus as well. Patient reports his last colonoscopy was 10 years ago he reports that was unrem arkable. He denies any smoking history. He reports occasional alcohol use. He does have a family history of a grandfather with colon cancer. Past surgical history does include inguinal hernia repair. Patient's computed tomography scan from this admission has shown small and large bowel obstruction felt to be related to neoplasm at the level of the proximal sigmoid colon. Direct visualization is recommended. Multiple hypoattenuating lesions throughout the liver may reflect cysts although metastatic disease is difficult to exclude. Surgical service consulted regards to the bowel obstruction. Patient also being evaluated by oncology service. Patient has had 2 NG tube placed during his admission. Unfortunately they have both accidentally came out. Patient has had no nausea or vomiting and did have a bowel movement this morning. NG tube has remained out. PAST MEDICAL HISTORY: Hyperlipidemia. Seasonal ALLERGIES PAST SURGICAL HISTORY: Hernia repair MEDICATIONS: See list. ALLERGIES: See list. SOCIAL HISTORY: No illicit drug use. REVIEW OF SYSTEMS: CONSTITUTIONAL: Denies fever or chills. HEENT: Denies blurred vision, vision changes, or eye pain. Denies hemoptysis ENDOCRINE: Denies heat or cold intolerance. CARDIOVASCULAR: Denies chest pain or pressure. RESPIRATORY: No shortness of breath. GASTROINTESTINAL: please refer to HPI otherwise unremarkable NEURO: Denies history of seizures. PSYCH: No depression or suicidal ideation HEMATOLOGIC: Denies bleeding disorders. LYMPHATIC: The patient denies any lumps and bumps around the neck. GENITOURINARY: Denies any blood in urine or increased urinary frequency. MUSCULOSKELETAL: Denies myalgias. Denies joint swelling. Denies decreased range of motion beyond patients baseline. SKIN: Denies pruitis. Denies rash. PHYSICAL EXAM: VITAL SIGNS: Reviewed GENERAL: Well-developed in no acute distress. HEENT: No sclera icterus. Extraocular movements grossly intact. Moist buccal mucosa. Head is atraumatic, normocephalic. Hears conversational speech. No nasal drainage. NECK: Supple without lymphadenopathy. CHEST: Non-labored respirations and equal bilateral excursions. CARDIOVASCULAR: Palpable 2+ radial pulses. ABDOMEN: Distended. Tenderness to palpation of the left side of the abdomen. MUSCULOSKELETAL: No clubbing or cyanosis. NEUROLOGIC: No focal or lateralizing signs. Cranial nerves II through XII grossly intact. PSYCH: Appropriate affect. Alert and oriented to person, place and time. SKIN: Well perfused. Good skin turgor. LABORATORY DATA: WBC is 11.7 Hgb 14.5 platelets 696 INR 1.2 Sodium 136 potassium 4.3 creatinine 1.48 Lactic acid 4.9 down to 1.5 Total bili 1.0 AST 27 ALT 21 alk phos 142 lipase 64 Troponin 0.020 IMAGING: computed tomography scan as stated above ASSESSMENT: 1. Small and large bowel obstruction possibly related to neoplasm at the level of the proximal sigmoid colon noted on computed tomography scan 2. Multiple hypoattenuating lesions throughout the liver 3. Elevated lactic acid level 4. Acute kidney injury 5. Leukocytosis PLAN: -Further recommendations forthcoming per surgeon regarding surgical intervention -Keep patient nothing by mouth -Check tumor markers CEA, CA-19-9, alpha-fetoprotein and also folate RBC -Continue pain management -Continue IV fluids -Continue supportive care Thank you for this consultation Physician Record Label Internship note has been reviewed by physician. Signing provider agrees with the documented findings, assessment, and plan of care. Past Medical History Past Medical History: GI Bleed, Hyperlipidemia History of Any Multi-Drug Resistant Organisms: None Reported Past Surgical History: Hernia Repair Additional Past Surgical History / Comment(s): double hernia 1969; non desended left testicle; colonscopy Past Anesthesia/Blood Transfusion Reactions: No Reported Reaction Past Psychological History: No Psychological Hx Reported Smoking Status: Never smoker Past Alcohol Use History: Rare Past Drug Use History: None Reported - Past Family History Father Family Medical History: Cancer (lung cancer, smoker) Additional Family Medical History / Comment(s): Grandfather with colon cancer Medications and Allergies Home Medications Medication Instructions Recorded Confirmed Type Atorvastatin [Lipitor] 40 mg PO PC-SUPPER 06/13/23 06/13/23 History Cetirizine HCl [Zyrtec] 10 mg PO DAILY 06/13/23 06/13/23 History Allergies Allergy/AdvReac Type Severity Reaction Status Date / Time No Known Allergies Allergy Verified 06/13/23 15:56 Surgical - Exam Vital Signs Temp Pulse Resp BP Pulse Ox 97.5 F L 142 H 20 106/69 99 06/13/23 12:11 06/13/23 12:11 06/13/23 12:11 06/13/23 12:11 06/13/23 12:11 Results - Labs 06/13/23 12:57 06/13/23 12:57 Abnormal Lab Results - Last 24 Hours (Table) 06/13/23 06/13/23 06/13/23 Range/Units 12:57 12:57 12:57 WBC 11.7 H (3.8-10.6) k/uL Plt Count 696 H (150-450) k/uL Neutrophils # 8.7 H (1.3-7.7) k/uL INR (<1.2) Sodium 136 L (137-145) mmol/L Carbon Dioxide 19 L (22-30) mmol/L BUN 23 H (9-20) mg/dL Creatinine 1.48 H (0.66-1.25) mg/dL Glucose 130 H (74-99) mg/dL Plasma Lactic Acid Frandy (0.7-2.0) mmol/L Alkaline Phosphatase 142 H (38-126) U/L Urine Protein Trace H (Negative) Urine Ketones 1+ H (Negative) Urine Blood Large H (Negative) Ur Leukocyte Esterase Small H (Negative) Urine RBC 40 H (0-5) /hpf Urine WBC >182 H (0-5) /hpf Urine WBC Clumps Many H (None) /hpf Urine Bacteria Occasional H (None) /hpf Urine Mucus Rare H (None) /hpf 06/13/23 06/13/23 Range/Units 14:06 14:07 WBC (3.8-10.6) k/uL Plt Count (150-450) k/uL Neutrophils # (1.3-7.7) k/uL INR 1.2 H (<1.2) Sodium (137-145) mmol/L Carbon Dioxide (22-30) mmol/L BUN (9-20) mg/dL Creatinine (0.66-1.25) mg/dL Glucose (74-99) mg/dL Plasma Lactic Acid Frandy 4.9 H* (0.7-2.0) mmol/L Alkaline Phosphatase (38-126) U/L Urine Protein (Negative) Urine Ketones (Negative) Urine Blood (Negative) Ur Leukocyte Esterase (Negative) Urine RBC (0-5) /hpf Urine WBC (0-5) /hpf Urine WBC Clumps (None) /hpf Urine Bacteria (None) /hpf Urine Mucus (None) /hpf Diabetes panel 06/13/23 Range/Units 12:57 Sodium 136 L (137-145) mmol/L Potassium 4.3 (3.5-5.1) mmol/L Chloride 98 (98-107) mmol/L Carbon Dioxide 19 L (22-30) mmol/L BUN 23 H (9-20) mg/dL Creatinine 1.48 H (0.66-1.25) mg/dL Glucose 130 H (74-99) mg/dL Calcium 9.8 (8.4-10.2) mg/dL AST 27 (17-59) U/L ALT 21 (4-49) U/L Alkaline Phosphatase 142 H (38-126) U/L Total Protein 7.2 (6.3-8.2) g/dL Albumin 3.9 (3.5-5.0) g/dL Calcium panel 06/13/23 Range/Units 12:57 Calcium 9.8 (8.4-10.2) mg/dL Albumin 3.9 (3.5-5.0) g/dL Pituitary panel 06/13/23 Range/Units 12:57 Sodium 136 L (137-145) mmol/L Potassium 4.3 (3.5-5.1) mmol/L Chloride 98 (98-107) mmol/L Carbon Dioxide 19 L (22-30) mmol/L BUN 23 H (9-20) mg/dL Creatinine 1.48 H (0.66-1.25) mg/dL Glucose 130 H (74-99) mg/dL Calcium 9.8 (8.4-10.2) mg/dL Adrenal panel 06/13/23 Range/Units 12:57 Sodium 136 L (137-145) mmol/L Potassium 4.3 (3.5-5.1) mmol/L Chloride 98 (98-107) mmol/L Carbon Dioxide 19 L (22-30) mmol/L BUN 23 H (9-20) mg/dL Creatinine 1.48 H (0.66-1.25) mg/dL Glucose 130 H (74-99) mg/dL Calcium 9.8 (8.4-10.2) mg/dL Total Bilirubin 1.0 (0.2-1.3) mg/dL AST 27 (17-59) U/L ALT 21 (4-49) U/L Alkaline Phosphatase 142 H (38-126) U/L Total Protein 7.2 (6.3-8.2) g/dL Albumin 3.9 (3.5-5.0) g/dL
--- NOTE | 2023-06-14 21:51 | P.CONS ---
History of Present Illness - Reason for Consult Consult date: 06/14/23 abd mass Requesting physician: James Li - Chief Complaint abd pain, constipation - History of Present Illness Mr. Perez is a 62 yo male we have been asked to see because of dilation of the bowel with thickening of the sigmoid colon, concerns for malignancy. Pt reports that changes in his health started about Apr this year. He reports he was having abd discomfort, changes in stool consistency, initially thought to be diverticulitis, symptoms persisted and progressed to significant bloating of the abd, watery stools and most recently no stool. Has loud bowel sounds. He notes decreased energy, appetite is poor, lost about 37 lbs in 7 weeks, significant decrease in energy levels. Denies blood in the stool. He had a normal colonoscopy about 10 years ago. His grandfather had colon cancer, father had lung cancer. He was here for similar symptoms end of Apr and on 04/[address] abdomen with contrast reporting gas and fluid filled dilated small bowel and colon suggesting ileus vs possible colonic obstruction. Non specific pneumatosis within the ascending colon. CT AP with contrast 06/13/23 reports small and large bowel obstruction felt to be related to neoplasm at the level of the proximal sigmoid, multiple hypoattenuating lesions seen in the liver, cannot exclude metastatic disease. Hgb is normal, platelets 600,000 range. Mild renal dysfunction and elevated lactic acid. Review of Systems 14 point ROS is neg except as stated in HPI Past Medical History Past Medical History: GI Bleed, Hyperlipidemia History of Any Multi-Drug Resistant Organisms: None Reported Past Surgical History: Hernia Repair Additional Past Surgical History / Comment(s): double hernia 1968; non desended left testicle; colonscopy Past Anesthesia/Blood Transfusion Reactions: No Reported Reaction Past Psychological History: No Psychological Hx Reported Smoking Status: Never smoker Past Alcohol Use History: Rare Past Drug Use History: None Reported - Past Family History Father Family Medical History: Cancer (lung cancer, smoker) Additional Family Medical History / Comment(s): Grandfather with colon cancer Medications and Allergies Home Medications Medication Instructions Recorded Confirmed Type Atorvastatin [Lipitor] 40 mg PO PC-SUPPER 06/13/23 06/13/23 History Cetirizine HCl [Zyrtec] 10 mg PO DAILY 06/13/23 06/13/23 History Allergies Allergy/AdvReac Type Severity Reaction Status Date / Time No Known Allergies Allergy Verified 06/13/23 15:56 Physical Exam Vitals: Vital Signs Temp Pulse Pulse Resp BP BP Pulse Ox 06/14/23 07:51 98.2 F 99 18 125/69 96 06/14/23 02:00 97.9 F 102 H 16 118/74 97 06/13/23 20:00 97.7 F 118 H 16 140/93 97 06/13/23 18:49 100 18 143/94 96 06/13/23 16:26 105 H 18 150/94 95 06/13/23 15:35 109 H 18 136/92 96 06/13/23 14:28 125 H 18 117/94 95 06/13/23 12:11 97.5 F L 142 H 20 106/69 99 Intake and Output 06/13/23 06/14/23 06/14/23 22:59 06:59 14:59 Intake Total 0 0 Balance 0 0 Intake: Oral 0 0 Other: Voiding Method Toilet # Voids 1 1 Weight 73.936 kg - Constitutional General appearance: average body habitus, cooperative, no acute distress - EENT Eyes: anicteric sclerae, EOMI ENT: hearing grossly normal, normal oropharynx - Neck Neck: no lymphadenopathy - Respiratory Respiratory: bilateral: CTA - Cardiovascular Rhythm: regular Heart sounds: normal: S1, S2 Abnormal Heart Sounds: no systolic murmur, no diastolic murmur, no rub, no S3 Gallop, no S4 Gallop, no click, no other leg Peripheral Edema: bilateral: None - Gastrointestinal General gastrointestinal: no absent bowel sounds, decreased bowel sounds, distended, no hepatomegaly, no hyperactive bowel sounds, no normal bowel sounds, no organomegaly, no rigid, no scaphoid, soft, no splenomegaly, no tenderness, no umbilical hernia, ventral hernia - Integumentary Integumentary: normal - Neurologic Neurologic: CNII-XII intact - Musculoskeletal Musculoskeletal: strength equal bilaterally - Psychiatric Psychiatric: A&O x's 3, appropriate affect, intact judgment & insight Results CBC & Chem 7: 06/13/23 12:57 06/13/23 12:57 Labs: Abnormal Lab Results - Last 24 Hours (Table) 06/13/23 06/13/23 06/13/23 Range/Units 12:57 12:57 12:57 WBC 11.7 H (3.8-10.6) k/uL Plt Count 696 H (150-450) k/uL Neutrophils # 8.7 H (1.3-7.7) k/uL INR (<1.2) Sodium 136 L (137-145) mmol/L Carbon Dioxide 19 L (22-30) mmol/L BUN 23 H (9-20) mg/dL Creatinine 1.48 H (0.66-1.25) mg/dL Glucose 130 H (74-99) mg/dL Plasma Lactic Acid Frandy (0.7-2.0) mmol/L Alkaline Phosphatase 142 H (38-126) U/L Urine Protein Trace H (Negative) Urine Ketones 1+ H (Negative) Urine Blood Large H (Negative) Ur Leukocyte Esterase Small H (Negative) Urine RBC 40 H (0-5) /hpf Urine WBC >182 H (0-5) /hpf Urine WBC Clumps Many H (None) /hpf Urine Bacteria Occasional H (None) /hpf Urine Mucus Rare H (None) /hpf 06/13/23 06/13/23 Range/Units 14:06 14:07 WBC (3.8-10.6) k/uL Plt Count (150-450) k/uL Neutrophils # (1.3-7.7) k/uL INR 1.2 H (<1.2) Sodium (137-145) mmol/L Carbon Dioxide (22-30) mmol/L BUN (9-20) mg/dL Creatinine (0.66-1.25) mg/dL Glucose (74-99) mg/dL Plasma Lactic Acid Frandy 4.9 H* (0.7-2.0) mmol/L Alkaline Phosphatase (38-126) U/L Urine Protein (Negative) Urine Ketones (Negative) Urine Blood (Negative) Ur Leukocyte Esterase (Negative) Urine RBC (0-5) /hpf Urine WBC (0-5) /hpf Urine WBC Clumps (None) /hpf Urine Bacteria (None) /hpf Urine Mucus (None) /hpf Abdominal x-ray: report reviewed CT scan - abdomen: report reviewed CT scan - pelvis: report reviewed Assessment and Plan (1) Small bowel obstruction Current Visit: Yes Status: Acute Priority: High Code(s): K56.609 - UNSP INTESTNL OBST, UNSP TO PARTIAL VERSUS COMPLETE OBST SNOMED Code(s): 318244925 Plan: SBO -Discussed with pt concerning findings on imaging-dilated bowel with thickening at sigmoid. -Pending surgical evaluation and recommendations -Did discuss with Surgery PA that if the findings during surgery are suspicious for malignancy, and if able, would like liver biopsy Thrombocythemia -Mild, most likely reactive -Iron studies ordered Dr. de lunaests: I seen and examined patient, performed H&P, developed impression an d plan of care. Discussed with dictator. Agree with documentation, dictated as a scribe.
[2023-06-15 08:45] LABS: Basophils # (A) 0.04 X 10*3/uL (0.00-0.10); Basophils % (A) 0.6 %; Eosinophils # (A) 0.13 X 10*3/uL (0.04-0.35); HCT 32.7 % (39.6-50.0); HGB 10.5 g/dL (13.0-17.0); Lymphocytes # (A) 2.57 X 10*3/uL (0.90-5.00); Lymphocytes % (A) 40.2 %; MCH 30.1 pg (27.0-32.0); MCHC 32.1 g/dL (32.0-37.0); MCV 93.7 FL (80.0-97.0); Mean Platelet Volume 10.6 FL (9.5-12.2); Monocytes # (A) 0.94 X 10*3/uL (0.20-1.00); Monocytes % (A) 14.7 %; NRBC Per 100 WBC 0 X 10*3/uL (0.00-0.01); Neutrophils % (A) 42.2 %; Platelet Count 524 X 10*3/uL (140-440); RBC 3.49 X 10*6/uL (4.40-5.60); RDW 16.6 % (11.5-14.5)
[2023-06-15] MEDS: PANTOPRAZOLE 40 MG/10 ML VIAL IVP SCH (08:55)
[2023-06-15 09:09] LABS: Blood Urea Nitrogen 21.3 mg/dL (9.0-27.0); Calcium 8.7 mg/dL (8.7-10.3); Carbon Dioxide 20.1 mmol/L (21.6-31.8); Chloride 108 mmol/L (96-109); Glucose 65 mg/dL (70-110); Magnesium 2.1 mg/dL (1.5-2.4); Sodium 142 mmol/L (135-145)
--- NOTE | 2023-06-15 09:29 | P.CRDCN ---
History of Present Illness Consult date: 06/15/23 History of present illness: History of present illness: This is a 62-year-old male with past medical history of hyperlipidemia. We have been asked to evaluate the patient for preoperative clearance. Patient states starting in April he had change in his bowel habits and was thought to initially have diverticulitis. CAT scan of the abdomen with contrast revealed dilated small bowel and colon suggested ileus possible colonic obstruction. CT was repeated on 06/13 which revealed small and large bowel obstruction felt to be related to neoplasm at the level of the proximal sigmoid. Multiple hypoattenuating lesions in the liver. He states that he has lost 37 pounds since April. He presented to the hospital as he was having abdominal pain, abdominal distention along with shortness of breath. Patient denies having any previous cardiac history. He denies any family history of premature coronary artery disease. He is a nonsmoker, minimal alcohol intake. No drug use. He states about obstruction has resolved. Patient is noted to have mild sinus tachycardia heart rate in the 80s to low 100s. He denies any chest pain, no lightheadedness or dizziness. 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 Patient is scheduled for diverging colostomy on 06/18. EKG sinus tachycardia WBC 6.4, hemoglobin 10.5, platelet count 524. INR 1.2. Sodium 142, potassium 4, CO2 20, BUN 21 creatinine now 1 down from 1.48. Blood sugar 65. Lactic acid has normalized. Liver function tests are normal. Tumor markers normal. Urinalysis appears positive for UTI. Home cardiac medications: Atorvastatin Review Of Systems: At the time of my exam: CONSTITUTIONAL: Denies fever or chills. CARDIOVASCULAR: Denies chest pain, Denies shortness of breath, no orthopnea, PND or palpitations. RESPIRATORY: Denies cough. GASTROINTESTINAL: Denies abdominal pain, diarrhea, constipation, nausea or vomiting. MUSCULOSKELETAL: Denies myalgias. NEUROLOGIC: Denies numbness, tingling or weakness. ENDOCRINE: Denies fatigue, weight change, polydipsia or polyurina. GENITOURINARY: Denies burning, hematuria or urgency with micturation. HEMATOLOGIC: Denies history of anemia or bleeding. Physical examination: Gen: This is a 62-year-old male. He's resting bed and appears to be comfortable. No acute distress. VS: reviewed blood pressure 129/70, heart rate 98, afebrile. HEENT: Head is atraumatic, normocephalic. Pupils equal, round. Sclerae is anicteric. NECK: No JVD. LUNGS: Clear to auscultation. No wheezes or rhonchi. No intercostal retr actions. HEART: Regular rate and rhythm. No murmur. ABDOMEN: Distended EXTREMITIES: No pedal edema. No calf tenderness. NEUROLOGICAL: Patient is awake, alert and oriented x3. Assessment: Small bowel obstruction Sigmoid mass Liver lesions possible metastatic disease Thrombocythemia Anemia Acute kidney injury Lactic acidosis, resolved UTI Hyperlipidemia Plan: Continue atorvastatin Obtain 2-D echocardiogram and Doppler study to assess cardiac structure and function Patient is cleared from cardiology for surgical intervention. He is at low risk for perioperative complications. He has no previous cardiac history. No contraindication to the surgery. No need for beta ann. Thank you kindly for this consultation. Nurse practitioner note has been reviewed, I agree with documented findings and plan of care. Patient was seen and examined. Past Medical History Past Medical History: GI Bleed, Hyperlipidemia History of Any Multi-Drug Resistant Organisms: None Reported Past Surgical History: Hernia Repair Additional Past Surgical History / Comment(s): double hernia 1969; non desended left testicle; colonscopy Past Anesthesia/Blood Transfusion Reactions: No Reported Reaction Past Psychological History: No Psychological Hx Reported Smoking Status: Never smoker Past Alcohol Use History: Rare Past Drug Use History: None Reported - Past Family History Father Family Medical History: Cancer (lung cancer, smoker) Additional Family Medical History / Comment(s): Grandfather with colon cancer Medications and Allergies Home Medications Medication Instructions Recorded Confirmed Type Atorvastatin [Lipitor] 40 mg PO PC-SUPPER 06/13/23 06/13/23 History Cetirizine HCl [Zyrtec] 10 mg PO DAILY 06/13/23 06/13/23 History Allergies Allergy/AdvReac Type Severity Reaction Status Date / Time No Known Allergies Allergy Verified 06/13/23 15:56 Physical Exam Vitals: Vital Signs Temp Pulse Resp BP Pulse Ox 06/15/23 07:31 98.5 F 87 17 129/70 98 06/15/23 02:00 98.5 F 94 16 114/70 97 06/14/23 20:00 97.5 F L 109 H 16 160/95 98 06/14/23 15:22 97.8 F 113 H 18 136/91 94 L Intake and Output 06/14/23 06/15/23 06/15/23 22:59 06:59 14:59 Intake Total 900 900 Balance 900 900 Intake: Intake, IV Titration 900 900 Amount Sodium Chloride 0.9% 1, 900 900 000 ml @ 75 mls/hr IV . [id number] [facility] Rx#:[id number] Other: Voiding Method Toilet # Voids 1 Results 06/15/23 05:49 06/15/23 05:45 CBC 06/15/23 Range/Units 05:49 WBC 6.40 (4.50-10.00) X 10*3/uL RBC 3.49 L (4.40-5.60) X 10*6/uL Hgb 10.5 L (13.0-17.0) g/dL Hct 32.7 L (39.6-50.0) % Plt Count 524 H (140-440) X 10*3/uL Current Medications Generic Name Dose Route Start Last Admin Trade Name Freq PRN Reason Stop Dose Admin Hydromorphone HCl 0.5 mg 06/14/23 08:47 06/14/23 23:23 Hydromorphone 0.5 Mg/0.5 Ml Syringe IVP 0.5 mg Q3HR PRN Administration Pain Sodium Chloride 1,000 mls @ 75 mls/hr 06/14/23 10:00 06/14/23 23:23 Saline 0.9% IV 75 mls/hr .[id number] [facility] Administration Miscellaneous Information 1 each 06/14/23 09:53 Magnesium Replacement Protocol 1 Each Misc MISCELLANE DAILY PRN Per Protocol Protocol Pantoprazole Sodium 40 mg 06/14/23 10:00 06/15/23 08:55 Pantoprazole 40 Mg/10 Ml Vial IVP 40 mg DAILY [facility] Administration Polyethylene Glycol/Electrolytes 4,000 ml 06/16/23 08:00 Peg 3350 (236 Gm/Btl) + Lytes 4,000 Ml Bottle PO 06/16/23 08:01 ONCE ONE Intake and Output 06/14/23 06/15/23 06/15/23 22:59 06:59 14:59 Intake Total 900 900 Balance 900 900 Intake: Intake, IV Titration 900 900 Amount Sodium Chloride 0.9% 1, 900 900 000 ml @ 75 mls/hr IV . [id number] [facility] Rx#:[id number] Other: Voiding Method Toilet # Voids 1 06/15/23 05:49 06/13/23 12:57
[2023-06-15 10:09] LABS: % Iron Saturation 26.35 (15.00-50.00)
--- NOTE | 2023-06-15 10:51 | P.PN ---
Subjective Progress Note Date: 06/15/23 H&P Date: 06/13/23 Chief Complaint: Abdominal, small bowel obstruction He is complaining with abdominal bloating and flatulence for approximately the last 2 months patient presented to the emergency room with inability to pass gas or stool and significant abdominal pain, approximately 4 weeks ago he had a CT of the abdomen with no findings patient presented to the emergency room at [facility] today with symptoms and findings consistent with the small bowel obstruction and possible mass. 06/14/2023 Pain controlled on current medication regimen. No flatus, reports watery bowel movement with small bits of stool. Discloses unintentional weight loss of 37 pounds since April 13. Last colonoscopy was greater than [address] Cerda. NPO. Denies chest pain, palpitations or shortness of breath. Maintaining O2 sats in the 90s on room air. Afebrile. Lactic acidosis resolved. NG tube currently out. Denies nausea or vomiting. 06/15/2023 maintained on IV fluid hydration, renal function improved. Magnesium supplemented with current level within normal limits. Afebrile, normal WBC. Maintaining O2 sats in the high 90s on room air. Hemoglobin 10.5, platelets 524. Tumor markers negative. Urine culture pending. Currently denies pain. Objective - Vital Signs Vital signs: Vital Signs Temp 98.5 F 06/15/23 07:31 Pulse 87 06/15/23 07:31 Resp 17 06/15/23 07:31 BP 129/70 06/15/23 07:31 Pulse Ox 98 06/15/23 07:31 FiO2 Intake & Output 06/14/23 06/15/23 06/15/23 18:59 06:59 18:59 Intake Total 900 900 Balance 900 900 Weight 73.936 kg Intake: Intake, IV Titration 900 900 Amount Sodium Chloride 0.9% 1, 900 900 000 ml @ 75 mls/hr IV . [id number] [facility] Rx#:[id number] Other: Voiding Method Toilet Toilet Toilet # Voids 1 - Exam General: Alert and oriented 3, sitting up in chair, no acute distress. HEENT: Atraumatic,Normocephalic, PERRL. EOMI. Neck: Supple, no JVD Cardiac: [Heart regular in rate and rhythm. No S3. No S4. No clicks, rubs. No murmur. Lungs: Unlabored, equal air entry, Clear to auscultation bilaterally. Abdomen: Round hypertympanic , hyperactive BS, diffuse discomfort Extremes: [No edema no cyanosis no claudication normal pulses] Skin: Warm and dry, no rashes noted Neurologic: CN II - XII grossly intact. No focal deficits - Labs CBC & Chem 7: 06/15/23 05:49 06/15/23 05:45 Labs: Abnormal Lab Results - Last 24 Hours (Table) 06/15/23 06/15/23 06/15/23 Range/Units 05:45 05:45 05:49 RBC 3.49 L (4.40-5.60) X 10*6/uL Hgb 10.5 L (13.0-17.0) g/dL Hct 32.7 L (39.6-50.0) % RDW 16.6 H (11.5-14.5) % Plt Count 524 H (140-440) X 10*3/uL Carbon Dioxide 20.1 L (21.6-31.8) mmol/L Anion Gap 13.90 H (4.00-12.00) mmol/L BUN/Creatinine Ratio 21.30 H (12.00-20.00) Ratio Glucose 65 L (70-110) mg/dL Iron 39 L (65-175) UG/DL TIBC 148 L (228-460) UG/DL Transferrin 106.0 L (204.0-354.0) mg/dL Ferritin 355.0 H (22.0-322.0) ng/mL Assessment and Plan Assessment: (1) Gastrointestinal neoplasm, sigmoid, with liver lesions, 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 Current Visit: Yes Status: Acute Code(s): D49.0 - NEOPLASM OF UNSPECIFIED BEHAVIOR OF DIGESTIVE SYSTEM SNOMED Code(s): 298471082 (2) Small bowel obstruction Current Visit: Yes Status: Acute Code(s): K56.609 - UNSP INTESTNL OBST, UNSP TO PARTIAL VERSUS COMPLETE OBST SNOMED Code(s): 475259215 (3) unintentional weight loss of 37 pounds over the last 2 months (4) dehydration (5) acute renal failure secondary to the above (6) lactic acidosis, resolved (7) hypomagnesemia (8) thrombocytopenia (9) anemia Plan: Continue on current medication regime ,monitoring and symptomatic treatment. Maintain IV fluid hydration. Aggressive pulmonary toileting with incentive spirometer ordered ordered. Echo pending. Diverting colostomy scheduled for 06/18. Prognosis guarded given multiple complex medical issues. The impression and plan of care has been dictated as directed. : I performed a history and examination of this patient, discussed the same with the dictator. I agree with the dictator's note ,documented as a scribe. Any a dditional findings or plans will be noted.
[2023-06-15] MEDS: HYDROmorphone 0.5 MG/0.5 ML SYRINGE IVP PRN ×3 (11:42→23:09)
--- NOTE | 2023-06-15 12:03 | CA ---
Transthoracic Echo Report Name: Sushant Perez Age: 62 Gender: M : 1960 Exam Date: 06/15/2023 11:12 Exam Location: [place] [facility] Ht (in): 68 Wt (lb): 163 Ordering Physician: Elisabeth Vargas Attending/Referring Phys: [id number], Sam Design Engineer Mira Gomez, VENANCIO Procedure CPT: Indications: LVF Cardiac Hx: Technical Quality: Fair Contrast 1: Total Dose (mL): Contrast 2: Total Dose (mL): MEASUREMENTS (Male / Female) Normal Values 2D ECHO LV Diastolic Diameter PLAX 3.6 cm 4.2 - 5.9 / 3.9 - 5.3 cm LV Systolic Diameter PLAX 2.5 cm IVS Diastolic Thickness 1.1 cm 0.6 - 1.0 / 0.6 - 0.9 cm LVPW Diastolic Thickness 1.1 cm 0.6 - 1.0 / 0.6 - 0.9 cm LV Relative Wall Thickness 0.6 RV Internal Dim ED PLAX 3.5 cm LA Systolic Diameter LX 3.6 cm 3.0 - 4.0 / 2.7 - 3.8 cm LV Diastolic Volume MOD BP 67.1 cm??? 67 - 155 / 56 - 104 cm??? LV Systolic Volume MOD BP 29.9 cm??? 22 - 58 / 19 - 49 cm??? LV Ejection Fraction MOD BP 55.4 % >= 55 % LV Cardiac Index MOD BP 2180.8 cm???/min???m??? LV Diastolic Volume MOD 4C 67.9 cm??? LV Systolic Volume MOD 4C 25.9 cm??? LV Ejection Fraction MOD 4C 61.9 % LV Cardiac Index MOD 4C 2465.6 cm???/min???m??? LV Diastolic Length 4C 7.9 cm LV Systolic Length 4C 6.3 cm LV Diastolic Volume MOD 2C 64.7 cm??? LV Systolic Volume MOD 2C 34.0 cm??? LV Ejection Fraction MOD 2C 47.4 % LV Cardiac Index MOD 2C 1799.8 cm???/min???m??? LV Diastolic Length 2C 7.6 cm LV Systolic Length 2C 6.5 cm LA Volume 32.3 cm??? 18 - 58 / 22 - 52 cm??? LA Volume Index 17.1 cm???/m??? 16 - 28 cm???/m??? M-MODE Aortic Root Diameter MM 3.3 cm MV E Point Septal Separation 0.5 cm AV Cusp Separation MM 2.5 cm DOPPLER AV Peak Velocity 151.3 cm/s AV Peak Gradient 9.2 mmHg MV Area PHT 3.9 cm??? Mitral E Point Velocity 73.9 cm/s Mitral A Point Velocity 93.9 cm/s Mitral E to A Ratio 0.8 MV Deceleration Time 195.8 ms FINDINGS Left Ventricle Left ventricular ejection fraction is estimated at 60-65 %. Small left ventricular cavity. Left ventricular wall thickness normal. Hyperdynamic LV. No obvious regional wall motion abnormalities. Right Ventricle Mild right ventricular dilatation. Unable to estimate the right ventricular systolic pressure. Right Atrium Normal right atrial size. Left Atrium Normal left atrial size. Mitral Valve Structurally normal mitral valve. No mitral stenosis, regurgitation or prolapse. Aortic Valve Trileaflet aortic valve. No aortic valve stenosis or regurgitation. Tricuspid Valve Structurally normal tricuspid valve. No tricuspid regurgitation. Pulmonic Valve Structurally normal pulmonic valve. Trace pulmonic regurgitation. Pericardium No pericardial effusion. Aorta Normal size aortic root and proximal ascending aorta. CONCLUSIONS Left ventricular ejection fraction is estimated at 60-65 %. Hyperdynamic LV. No obvious regional wall motion abnormalities. No significant valvular pathology No pericardial effusion Previewed by: Dr Caleb Valencia (Electronically Signed) Final Date: 15 June 2023 12:02
--- NOTE | 2023-06-15 13:23 | P.PN ---
Progress Note - Text Progress Note Date: 06/14/23 Patient seen and evaluated with extensive conversation of surgery, improve diet, colostomy advised due to obstructive symptoms.
--- NOTE | 2023-06-15 14:51 | P.PN ---
Subjective Progress Note Date: 06/15/23 Principal diagnosis: SBO, sigmoid mass No acute events. Patient is on clear liquid diet and tolerating well. Denies nausea and vomiting. Experiencing loose stools. Complaining of abdominal bloating but denies abdominal pain at this time Objective - Vital Signs Vital signs: Vital Signs Temp 98 F 06/15/23 13:15 Pulse 117 H 06/15/23 13:15 Resp 18 06/15/23 13:15 BP 126/87 06/15/23 13:15 Pulse Ox 96 06/15/23 13:15 FiO2 Intake & Output 06/14/23 06/15/23 06/15/23 18:59 06:59 18:59 Intake Total 900 900 Balance 900 900 Weight 73.936 kg 73.936 kg Intake: Intake, IV Titration 900 900 Amount Sodium Chloride 0.9% 1, 900 900 000 ml @ 75 mls/hr IV . [id number] [facility] Rx#:[id number] Other: Voiding Method Toilet Toilet Toilet # Voids 1 - Constitutional General appearance: Present: average body habitus, no acute distress - EENT Eyes: Present: EOMI ENT: Present: hearing grossly normal - Respiratory Details: breathing is even and unlabored - Cardiovascular Details: skin warm and dry - Gastrointestinal General gastrointestinal: Present: distended. Absent: tenderness - Integumentary Integumentary: Absent: cyanotic - Neurologic Neurologic: Present: CNII-XII intact - Musculoskeletal Musculoskeletal: Present: strength equal bilaterally - Psychiatric Psychiatric: Present: A&O x's 3 - Labs CBC & Chem 7: 06/15/23 05:49 06/15/23 05:45 Labs: Abnormal Lab Results - Last 24 Hours (Table) 06/15/23 06/15/23 06/15/23 Range/Units 05:45 05:45 05:49 RBC 3.49 L (4.40-5.60) X 10*6/uL Hgb 10.5 L (13.0-17.0) g/dL Hct 32.7 L (39.6-50.0) % RDW 16.6 H (11.5-14.5) % Plt Count 524 H (140-440) X 10*3/uL Carbon Dioxide 20.1 L (21.6-31.8) mmol/L Anion Gap 13.90 H (4.00-12.00) mmol/L BUN/Creatinine Ratio 21.30 H (12.00-20.00) Ratio Glucose 65 L (70-110) mg/dL Iron 39 L (65-175) UG/DL TIBC 148 L (228-460) UG/DL Transferrin 106.0 L (204.0-354.0) mg/dL Ferritin 355.0 H (22.0-322.0) ng/mL Microbiology - Last 24 Hours (Table) 06/13/23 12:57 Urine Culture - Preliminary Urine,Clean Catch Gram Neg Bacilli Assessment and Plan (1) Colonic mass Current Visit: Yes Status: Acute Priority: High Code(s): K63.89 - OTHER SPECIFIED DISEASES OF INTESTINE SNOMED Code(s): 324140777 (2) Small bowel obstruction Current Visit: Yes Status: Acute Priority: High Code(s): K56.609 - UNSP INTESTNL OBST, UNSP TO PARTIAL VERSUS COMPLETE OBST SNOMED Code(s): 300597890 Plan: SBO -Discussed with pt concerning findings on imaging-dilated bowel with thickening at sigmoid, with possible liver mets -Pending surgical evaluation and recommendations -Tumor markers WNL -Did discuss with Surgery PA that if the findings during surgery are suspicious for malignancy, and if able, would like liver biopsy. Surgery scheduled for sunday Thrombocythemia -Mild, most likely reactive -Iron studies not consistent with KANWAL
--- NOTE | 2023-06-15 16:22 | P.PN ---
Subjective Progress Note Date: 06/15/23 CHIEF COMPLAINT: Abdominal pain HISTORY OF PRESENT ILLNESS: Patient to the hospital small and large bowel obstruction likely related to a neoplasm at the level of the sigmoid colon. Tumor markers are all negative. He also has evidence of liver lesions. Patient tolerating full liquid diet. He is having bowel movements. Denies any nausea or vomiting. Afebrile. Mildly tachycardic. WBC 11.7 down to 6.4 Hgb 10.5 platelets 524 iron 39 PHYSICAL EXAM: VITAL SIGNS: Reviewed GENERAL: Well-developed in no acute distress. HEENT: No sclera icterus. Extraocular movements grossly intact. Moist buccal mucosa. Head is atraumatic, normocephalic. Hears conversational speech. No nasal drainage. NECK: Supple without lymphadenopathy. CHEST: Non-labored respirations and equal bilateral excursions. CARDIOVASCULAR: Palpable 2+ radial pulses. ABDOMEN: Distended. Left-sided tenderness. MUSCULOSKELETAL: No clubbing or cyanosis. NEUROLOGIC: No focal or lateralizing signs. Cranial nerves II through XII grossly intact. PSYCH: Appropriate affect. Alert and oriented to person, place and time. SKIN: Well perfused. Good skin turgor. ASSESSMENT: 1. Small and large bowel obstruction possibly related to neoplasm at the level of the proximal sigmoid colon noted on computed tomography scan 2. Multiple hypoattenuating lesions throughout the liver 3. Elevated lactic acid level 4. Acute kidney injury 5. Leukocytosis PLAN: -Patient scheduled for Mediport placement and diverting colostomy on 06/18/[address] Armstrong -Continue full liquid diet -Continue bowel prep throughout Sunday and Sunday. Sunday start clear liquids -Continue protein drinks -Encourage patient to ambulate Physician Groundsman note has been reviewed by physician. Signing provider agrees with the documented findings, assessment, and plan of care. Objective - Vital Signs Vital signs: Vital Signs Temp 98 F 06/15/23 13:15 Pulse 117 H 06/15/23 13:15 Resp 18 06/15/23 13:15 BP 126/87 06/15/23 13:15 Pulse Ox 96 06/15/23 13:15 FiO2 Intake & Output 06/14/23 06/15/23 06/15/23 18:59 06:59 18:59 Intake Total 900 900 Balance 900 900 Weight 73.936 kg 73.936 kg Intake: Intake, IV Titration 900 900 Amount Sodium Chloride 0.9% 1, 900 900 000 ml @ 75 mls/hr IV . [id number] [facility] Rx#:[id number] Other: Voiding Method Toilet Toilet Toilet # Voids 1 - Labs CBC & Chem 7: 06/15/23 05:49 06/15/23 05:45 Labs: Abnormal Lab Results - Last 24 Hours (Table) 06/15/23 06/15/23 06/15/23 Range/Units 05:45 05:45 05:49 RBC 3.49 L (4.40-5.60) X 10*6/uL Hgb 10.5 L (13.0-17.0) g/dL Hct 32.7 L (39.6-50.0) % RDW 16.6 H (11.5-14.5) % Plt Count 524 H (140-440) X 10*3/uL Carbon Dioxide 20.1 L (21.6-31.8) mmol/L Anion Gap 13.90 H (4.00-12.00) mmol/L BUN/Creatinine Ratio 21.30 H (12.00-20.00) Ratio Glucose 65 L (70-110) mg/dL Iron 39 L (65-175) UG/DL TIBC 148 L (228-460) UG/DL Transferrin 106.0 L (204.0-354.0) mg/dL Ferritin 355.0 H (22.0-322.0) ng/mL Microbiology - Last 24 Hours (Table) 06/13/23 12:57 Urine Culture - Preliminary Urine,Clean Catch Gram Neg Bacilli
[2023-06-15] MEDS: SODIUM CHLORIDE 0.9% 1,000 ML IV SCH (17:54)
[2023-06-15] MEDS ORDERED: ONDANSETRON 4 MG/2 ML VIAL IVP PRN (21:10)
[2023-06-16] MEDS: SODIUM CHLORIDE 0.9% 1,000 ML IV SCH ×2 (02:30→17:47)
[2023-06-16] MEDS ORDERED: PEG 3350 (236 GM/BTL) + LYTES 4,000 ML BOTTLE PO ONE (08:00)
[2023-06-16] MEDS: PANTOPRAZOLE 40 MG/10 ML VIAL IVP SCH (08:25)
[2023-06-16] MEDS: HEPARIN SODIUM,PORCINE 5,000 UNIT/ML 1 ML VIAL SQ SCH ×2 (08:25→20:55)
[2023-06-16] MEDS: HYDROmorphone 0.5 MG/0.5 ML SYRINGE IVP PRN ×4 (08:45→22:54)
--- NOTE | 2023-06-16 11:03 | P.PN ---
Progress Note - Text Progress Note Date: 06/16/23 CHIEF COMPLAINT: Abdominal pain HISTORY OF PRESENT ILLNESS: Patient to the hospital small and large bowel obstruction likely related to a neoplasm at the level of the sigmoid colon. Tumor markers are all negative. He also has evidence of liver lesions. Patient tolerating full liquid diet. He is having bowel movements. Denies any nausea or vomiting. Afebrile. PHYSICAL EXAM: VITAL SIGNS: Reviewed GENERAL: Well-developed in no acute distress. HEENT: No sclera icterus. Extraocular movements grossly intact. Moist buccal mucosa. Head is atraumatic, normocephalic. Hears conversational speech. No nasal drainage. NECK: Supple without lymphadenopathy. CHEST: Non-labored respirations and equal bilateral excursions. CARDIOVASCULAR: Palpable 2+ radial pulses. ABDOMEN: Distended. Left-sided tenderness. MUSCULOSKELETAL: No clubbing or cyanosis. NEUROLOGIC: No focal or lateralizing signs. Cranial nerves II through XII grossly intact. PSYCH: Appropriate affect. Alert and oriented to person, place and time. SKIN: Well perfused. Good skin turgor. ASSESSMENT: 1. Small and large bowel obstruction possibly related to neoplasm at the level of the proximal sigmoid colon noted on computed tomography scan 2. Multiple hypoattenuating lesions throughout the liver 3. Elevated lactic acid level 4. Acute kidney injury 5. Leukocytosis PLAN: -Patient scheduled for Mediport placement and diverting colostomy on 06/18/[address] Armstrong -Continue full liquid diet -Continue bowel prep Today and Sunday. Sunday start clear liquids -Continue protein drinks -Encourage patient to ambulate
--- NOTE | 2023-06-16 12:30 | P.PN ---
Subjective Progress Note Date: 06/16/23 06/16/2023: Patient is here for small bowel obstruction due to a mass on CT. Dr. Armstrong splenic to the operating room for expiratory laparotomy on 06/18/2023. Currently he is on full liquids with a GoLYTELY prep. He denies any chest pains pressures breath. I really use much pain medication. He some abdominal distention. Staff report no issues at this time. Vital signs and labs remained stable. Objective - Vital Signs Vital signs: Vital Signs Temp 98.0 F 06/16/23 07:45 Pulse 94 06/16/23 07:45 Resp 17 06/16/23 07:45 BP 130/70 06/16/23 07:45 Pulse Ox 97 06/16/23 07:45 FiO2 Intake & Output 06/15/23 06/16/23 06/16/23 18:59 06:59 18:59 Weight 73.936 kg Other: Voiding Method Toilet Toilet Toilet # Voids 2 3 # Bowel Movements 0 - Exam General: Alert and oriented 3, sitting up in chair, no acute distress. Neck: Supple, no JVD Cardiac: regular in rate and rhythm. No S3. No S4. No clicks, rubs. No murmur. Lungs: Unlabored, equal air entry, Clear to auscultation bilaterally. Abdomen: Distended , hyperactive bowel sounds, diffuse discomfort Extremes: Trace pedal edema no cyanosis no claudication normal pulses] Skin: Warm and dry, no rashes noted Neurologic: CN II - XII grossly intact. No focal deficits - Labs CBC & Chem 7: 06/15/23 05:49 06/15/23 05:45 Labs: Microbiology - Last 24 Hours (Table) 06/13/23 12:57 Urine Culture - Preliminary Urine,Clean Catch Gram Neg Bacilli Assessment and Plan (1) Unintentional weight loss Current Visit: Yes Status: Acute Code(s): R63.4 - ABNORMAL WEIGHT LOSS SNOMED Code(s): 123687936 (2) Dehydration Current Visit: Yes Status: Acute Code(s): E86.0 - DEHYDRATION SNOMED Code(s): 40043617 (3) Acute renal failure Current Visit: Yes Status: Acute Code(s): N17.9 - ACUTE KIDNEY FAILURE, UNSPECIFIED SNOMED Code(s): 39086006 (4) Thrombocytosis Current Visit: Yes Status: Acute Code(s): D75.839 - THROMBOCYTOSIS, UNSP ECIFIED SNOMED Code(s): 6503099 (5) Colonic mass Current Visit: Yes Status: Acute Priority: High Code(s): K63.89 - OTHER SPECIFIED DISEASES OF INTESTINE SNOMED Code(s): 883457326 (6) Gastrointestinal neoplasm Current Visit: Yes Status: Acute Code(s): D49.0 - NEOPLASM OF UNSPECIFIED BEHAVIOR OF DIGESTIVE SYSTEM SNOMED Code(s): 081861821 (7) Small bowel obstruction Current Visit: Yes Status: Acute Priority: High Code(s): K56.609 - UNSP INTESTNL OBST, UNSP TO PARTIAL VERSUS COMPLETE OBST SNOMED Code(s): 291455516 Plan: He has surgery planned for Sunday. He is undergoing prep. He has no skin complaints today. We'll reevaluate him in next 24 hours.
[2023-06-17] MEDS: HYDROmorphone 0.5 MG/0.5 ML SYRINGE IVP PRN ×3 (06:09→22:36)
[2023-06-17] MEDS: SODIUM CHLORIDE 0.9% 1,000 ML IV SCH ×2 (06:27→22:36)
[2023-06-17] MEDS: HEPARIN SODIUM,PORCINE 5,000 UNIT/ML 1 ML VIAL SQ SCH ×2 (08:20→20:17)
[2023-06-17] MEDS: PANTOPRAZOLE 40 MG/10 ML VIAL IVP SCH (08:21)
--- NOTE | 2023-06-17 11:34 | P.PN ---
Subjective Progress Note Date: 06/17/23 Principal diagnosis: Colonic obstruction Patient apparently was taking a bowel prep for tomorrow surgery. He did not take any today since yesterday he noticed only a few small hard stools. He feels more bloated and says this is the biggest he has been. Says he has no significant pain but mild soreness. Vital signs are stable. Objective - Vital Signs Vital signs: Vital Signs Temp 97.7 F 06/17/23 07:24 Pulse 98 06/17/23 07:24 Resp 17 06/17/23 07:24 BP 126/78 06/17/23 07:24 Pulse Ox 95 06/17/23 07:24 FiO2 Intake & Output 06/16/23 06/17/23 06/17/23 18:59 06:59 18:59 Intake Total 900 Balance 900 Intake: Intake, IV Titration 900 Amount Sodium Chloride 0.9% 1, 900 000 ml @ 75 mls/hr IV . [id number] [facility] Rx#:[id number] Other: Voiding Method Toilet Toilet Toilet # Voids 1 - Exam Abdomen: Soft, distended, mild tenderness - Labs CBC & Chem 7: 06/15/23 05:49 06/15/23 05:45 Labs: Microbiology - Last 24 Hours (Table) 06/13/23 12:57 Urine Culture - Final Urine,Clean Catch Escherichia coli Assessment and Plan (1) Colonic mass Narrative/Plan: Patient more distended today. Scheduled for surgery tomorrow. Will place nasogastric tube. Keep nothing by mouth for now. Current Visit: Yes Status: Acute Priority: High Code(s): K63.89 - OTHER SPECIFIED DISEASES OF INTESTINE SNOMED Code(s): 575557623
--- NOTE | 2023-06-17 11:40 | XR ---
EXAMINATION TYPE: XR chest 1V portable DATE OF EXAM: 06/17/2023 11:35 AM CLINICAL INDICATION:Male, 62 years old with history of NG tube placement; [facility] COMPARISON: Chest radiographs from CT 06/13/2023, 06/13/2023 TECHNIQUE: XR chest 1V portable Frontal view of the chest. FINDINGS: Lungs/Pleura: There is no evidence of pleural effusion, focal consolidation, or pneumothorax. Pulmonary vascularity: Unremarkable. Heart/mediastinum: Cardiomediastinal silhouette is unremarkable. Musculoskeletal: No acute osseous pathology. Other findings: None Lines/Tubes: Nasogastric tube with its distal tip and side-port projecting under the diaphragm. IMPRESSION: No acute cardiopulmonary disease/process. Nasogastric tube in appropriate position. Gaseous dilation of multiple loops of bowel in the abdomen.
--- NOTE | 2023-06-17 12:13 | P.PN ---
Subjective 06/16/2023: Patient is here for small bowel obstruction due to a mass on CT. Dr. Armstrong splenic to the operating room for expiratory laparotomy on 06/18/2023. Currently he is on full liquids with a GoLYTELY prep. He denies any chest pains pressures breath. I really use much pain medication. He some abdominal distention. Staff report no issues at this time. Vital signs and labs remained stable. 06/17/2023: Patient is more distended today after doing his prep yesterday. Dr. Carley abad seen him in rounds this morning and an NG tube was placed. Prep was stopped. Surgery with Dr. Armstrong so planned for tomorrow for his small bowel obstruction with mass. He reports he had more pain that was controlled with Dilaudid. He is resting comfortably now. Remains afebrile, vital signs remain stable. We will let is 7-10.5. Electrolytes are essentially normal. Urine cultures positive for Escherichia coli with only ampicillin resistance. He continues on some Zoloft. Heparin subcutaneous for DVT prophylaxis, magnesium, Zofran, pantoprazole,and IV fluids, Objective - Vital Signs Vital signs: Vital Signs Temp 97.7 F 06/17/23 07:24 Pulse 98 06/17/23 07:24 Resp 17 06/17/23 07:24 BP 126/78 06/17/23 07:24 Pulse Ox 95 06/17/23 07:24 FiO2 Intake & Output 06/16/23 06/17/23 06/17/23 18:59 06:59 18:59 Intake Total 900 Balance 900 Intake: Intake, IV Titration 900 Amount Sodium Chloride 0.9% 1, 900 000 ml @ 75 mls/hr IV . [id number] [facility] Rx#:[id number] Other: Voiding Method Toilet Toilet Toilet # Voids 1 - Exam General: Alert and oriented 3, sitting up in chair, no acute distress. Neck: Supple, no JVD Cardiac: regular in rate and rhythm. No S3. No S4. No clicks, rubs. No murmur. Lungs: Unlabored, equal air entry, minimal right-sided basilar crackles. Abdomen: More distended than previous day. , hyperactive bowel sounds, diffuse discomfort Extremes: Trace pedal edema no cyanosis no claudication normal pulses] Skin: Warm and dry, no rashes noted Neurologic: CN II - XII grossly intact. No focal deficits - Labs CBC & Chem 7: 06/15/23 05:49 06/15/23 05:45 Labs: Microbiology - Last 24 Hours (Table) 06/13/23 12:57 Urine Culture - Final Urine,Clean Catch Escherichia coli Assessment and Plan (1) Unintentional weight loss Current Visit: Yes Status: Acute Code(s): R63.4 - ABNORMAL WEIGHT LOSS SNOMED Code(s): 938254361 (2) Dehydration Current Visit: Yes Status: Acute Code(s): E86.0 - DEHYDRATION SNOMED Code(s): 77353005 (3) Acute renal failure Current Visit: Yes Status: Acute Code(s): N17.9 - ACUTE KIDNEY FAILURE, UNSPECIFIED SNOMED Code(s): 68367279 (4) Thrombocytosis Current Visit: Yes Status: Acute Code(s): D75.839 - THROMBOCYTOSIS, UNSP ECIFIED SNOMED Code(s): 9015284 (5) Colonic mass Current Visit: Yes Status: Acute Priority: High Code(s): K63.89 - OTHER SPECIFIED DISEASES OF INTESTINE SNOMED Code(s): 299938682 (6) Gastrointestinal neoplasm Current Visit: Yes Status: Acute Code(s): D49.0 - NEOPLASM OF UNSPECIFIED BEHAVIOR OF DIGESTIVE SYSTEM SNOMED Code(s): 108509891 (7) Small bowel obstruction Current Visit: Yes Status: Acute Priority: High Code(s): K56.609 - UNSP INTESTNL OBST, UNSP TO PARTIAL VERSUS COMPLETE OBST SNOMED Code(s): 419725308 (8) Normocytic anemia Current Visit: Yes Status: Acute Code(s): D64.9 - ANEMIA, UNSPECIFIED SNOMED Code(s): 665901994 Plan: He has surgery planned for Sunday. Prep has been stopped NG tube is in place. Abnormal lung sounds are present, but chest x-ray was reviewed and failed to show any infiltrate or atelectasis. He'll continue on Cefazolin and the medications ordered. We'll reevaluate him in next 24 hours.
[2023-06-18] MEDS ORDERED: HYDROmorphone 0.5 MG/0.5 ML SYRINGE IVP PRN (07:00)
[2023-06-18] MEDS ORDERED: MIDAZOLAM 2 MG/2 ML VIAL IV PRN (07:00)
[2023-06-18] MEDS ORDERED: LACTATED RINGERS 1,000 ML IV SCH (07:00)
[2023-06-18] MEDS ORDERED: fentaNYL (PF) 50 MCG/ML 2 ML AMP IV PRN (07:00)
[2023-06-18] MEDS ORDERED: ONDANSETRON 4 MG/2 ML VIAL IVP ONE ×2 (07:00→12:15)
[2023-06-18] MEDS ORDERED: DEXAMETHASONE SOD PHOSPHATE 4 MG/ML 1 ML VIAL IV ONE (07:00)
[2023-06-18] MEDS: HEPARIN SODIUM,PORCINE 5,000 UNIT/ML 1 ML VIAL SQ SCH ×2 (07:03→19:30)
[2023-06-18] MEDS: HYDROmorphone 0.5 MG/0.5 ML SYRINGE IVP PRN (07:59)
[2023-06-18] MEDS: PANTOPRAZOLE 40 MG/10 ML VIAL IVP SCH (07:59)
[2023-06-18 09:41] LABS: Basophils % (A) 0 %; Eosinophils # (A) 0.1 k/uL (0-0.7); Eosinophils % (A) 1 %; HCT 35.1 % (39.0-53.0); Lymphocytes # (A) 1.3 k/uL (1.0-4.8); Lymphocytes % (A) 14 %; MCH 30.6 pg (25.0-35.0); MCHC 32.4 g/dL (31.0-37.0); MCV 94.4 fL (80.0-100.0); Monocytes # (A) 0.6 k/uL (0-1.0); Monocytes % (A) 7 %; Neutrophils # (A) 7.2 k/uL (1.3-7.7); Neutrophils % (A) 76 %; Platelet Count 425 k/uL (150-450); RBC 3.72 m/uL (4.30-5.90); RDW 15.3 % (11.5-15.5); WBC 9.5 k/uL (3.8-10.6)
[2023-06-18 09:44] LABS: HGB 11.4 gm/dL (13.0-17.5)
[2023-06-18 09:49] LABS: African American GFR (CKD) >90 (>60 ml/min/1.73 sqM); Anion Gap 9 mmol/L; Blood Urea Nitrogen 22 mg/dL (9-20); Calcium 8.5 mg/dL (8.4-10.2); Carbon Dioxide 25 mmol/L (22-30); Chloride 104 mmol/L (98-107); Glucose 70 mg/dL (74-99); Non-African American GFR(CKD) >90 (>60 ml/min/1.73 sqM); Potassium 3.6 mmol/L (3.5-5.1); Sodium 138 mmol/L (137-145)
--- NOTE | 2023-06-18 09:56 | P.PN ---
Subjective Progress Note Date: 06/18/23 H&P Date: 06/13/23 Chief Complaint: Abdominal, small bowel obstruction He is complaining with abdominal bloating and flatulence for approximately the last 2 months patient presented to the emergency room with inability to pass gas or stool and significant abdominal pain, approximately 4 weeks ago he had a CT of the abdomen with no findings patient presented to the emergency room at [facility] today with symptoms and findings consistent with the small bowel obstruction and possible mass. 06/14/2023 Pain controlled on current medication regimen. No flatus, reports watery bowel movement with small bits of stool. Discloses unintentional weight loss of 37 pounds since April 13. Last colonoscopy was greater than [address] Cerda. NPO. Denies chest pain, palpitations or shortness of breath. Maintaining O2 sats in the 90s on room air. Afebrile. Lactic acidosis resolved. NG tube currently out. Denies nausea or vomiting. 06/15/2023 maintained on IV fluid hydration, renal function improved. Magnesium supplemented with current level within normal limits. Afebrile, normal WBC. Maintaining O2 sats in the high 90s on room air. Hemoglobin 10.5, platelets 524. Tumor markers negative. Urine culture pending. Currently denies pain. 06/18/2023 NPO, NG tube, scheduled for today. Bloated but states softer with the addition of NG tube. No flatus. passing watery bm with specks. Denies abdominal pain. Afebrile, normal WBC. Vital signs stable, maintaining O2 sats in the high 90s on room air. Hemoglobin 11.4, platelets 425. BUN 22, creatinine 0.9. Objective - Vital Signs Vital signs: Vital Signs Temp 97.8 F 06/18/23 07:03 Pulse 99 06/18/23 07:03 Resp 17 06/18/23 07:03 BP 127/80 06/18/23 07:03 Pulse Ox 96 06/18/23 07:03 FiO2 Intake & Output 06/17/23 06/18/23 06/18/23 18:59 06:59 18:59 Intake Total 900 Output Total 800 Balance -800 900 Intake: Intake, IV Titration 900 Amount Sodium Chloride 0.9% 1, 900 000 ml @ 75 mls/hr IV . [id number] [facility] Rx#:[id number] Oral 0 Output: Gastric Drainage 700 Urine 100 Other: Voiding Method Toilet Toilet Toilet # Voids 1 # Bowel Movements 1 - Exam General: Alert and oriented 3, sitting up in bed, no acute distress. HEENT: Atraumatic,Normocephalic, PERRL. EOMI. positive NG tube. Neck: Supple, no JVD Cardiac: [Heart regular in rate and rhythm. No S3. No S4. No clicks, rubs. No murmur. Lungs: Unlabored, equal air entry, Clear to auscultation bilaterally. Abdomen: Soft, distended, nontender hyperactive BS, Extremes: [No edema no cyanosis no claudication normal pulses] Skin: Warm and dry, no rashes noted Neurologic: CN II - XII grossly intact. 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 Current Visit: Yes Status: Acute Code(s): D49.0 - NEOPLASM OF UNSPECIFIED BEHAVIOR OF DIGESTIVE SYSTEM SNOMED Code(s): 156096455 (2) Small bowel obstruction Current Visit: Yes Status: Acute Code(s): K56.609 - UNSP INTESTNL OBST, UNSP TO PARTIAL VERSUS COMPLETE OBST SNOMED Code(s): 087640413 (3) unintentional weight loss of 37 pounds over the last 2 months (4) dehydration (5) acute renal failure secondary to the above (6) lactic acidosis, resolved (7) hypomagnesemia (8) thrombocytopenia (9) anemia Plan: Continue on current medication regime ,monitoring and symptomatic treatment. NPO. Maintain IV fluid hydration. Scheduled for surgery today. Prognosis guarded given multiple complex medical issues. The impression and plan of care has been dictated as directed. : I performed a history and examination of this patient, discussed the same with the dictator. I agree with the dictator's note ,documented as a scribe. Any additional findings or plans will be noted.
[2023-06-18] MEDS ORDERED: MIDAZOLAM 2 MG/2 ML VIAL IVP ONE (11:59)
[2023-06-18] MEDS ORDERED: ePHEDrine 50 MG/ML 1 ML VIAL ONE (12:14)
[2023-06-18] MEDS ORDERED: SUCCINYLCHOLINE CHLORIDE 200 MG/10 ML VIAL IV ONE (12:14)
[2023-06-18] MEDS ORDERED: NEOSTIGMINE 1 MG/ML 10 ML VIAL ONE (12:14)
[2023-06-18] MEDS ORDERED: LIDOCAINE 1% INJ 10MG/ML (20 ML MDV) ONE (12:14)
[2023-06-18] MEDS ORDERED: fentaNYL (PF) 50 MCG/ML 2 ML AMP ONE (12:14)
[2023-06-18] MEDS ORDERED: PHENYLEPHRINE-0.9% NACL SYG 1,000 MCG/10 ML SYRINGE ONE (12:14)
[2023-06-18] MEDS ORDERED: GLYCOPYRROLATE 0.2 MG/ML 2 ML VIAL ONE (12:14)
[2023-06-18] MEDS ORDERED: ROCURONIUM 10 MG/ML (5 ML VIAL) IV ONE (12:14)
[2023-06-18] MEDS ORDERED: WATER FOR INJECTION, STERILE 10 ML VIAL IV ONE (12:14)
[2023-06-18] MEDS ORDERED: PROPOFOL 10 MG/ML 20 ML VIAL IV ONE (12:14)
[2023-06-18] MEDS ORDERED: DEXAMETHASONE SOD PHOSPHATE 4 MG/ML 1 ML VIAL IVP ONE (12:15)
[2023-06-18] MEDS ORDERED: SODIUM CHLORIDE 0.9% 50 ML with ceFAZolin 2,000 MG IV ONE ×2 (12:17)
[2023-06-18] MEDS ORDERED: NALOXONE 0.4 MG/ML 1 ML VIAL IV PRN (12:34)
[2023-06-18] MEDS ORDERED: HEPARIN SODIUM,PORCINE 100 UNIT/ML 5 ML VIAL IV ONE (12:53)
[2023-06-18] MEDS ORDERED: LIDOCAINE 1% INJ 10MG/ML (20 ML MDV) SQ ONE (12:53)
[2023-06-18] MEDS ORDERED: SODIUM CHLORIDE 0.9% 500 ML 500 ML with HEPARIN SODIUM,PORCINE (1 ML) 5,000 UNIT IV ONE ×2 (12:55)
--- NOTE | 2023-06-18 12:56 | P.ANPRN ---
Procedure Note - Anesthesia - Epidural/Spinal Epidural Continuous Time Out Performed: Yes Date of Procedure: 06/18/23 Procedure Start Time: 11:58 Procedure Stop Time: 12:07 Location of Patient: PreOp Indication: Acute Post-Operative Pain Sedation Type: Sedate with meaningful contact maintained Preparation: Sterile Dressing Position: Sitting Catheter: Indwelling Needle Guage: 18 Blood Aspirated: No Pain Paresthesia on Injection Noted: No Events: Uneventful and Well Tolerated (xylo 1.5% 3cc plus epi as test dose no adverse reaction noted)
[2023-06-18] MEDS ORDERED: LACTATED RINGERS 1,000 ML IV ONE ×4 (13:18→16:31)
--- NOTE | 2023-06-18 13:42 | P.OP ---
Date of Procedure: 06/18/23 Description of Procedure: SURGEON: JOANNE SARABIA MD LASER MACHINE OPERATOR: None. PREOPERATIVE DIAGNOSES: 1. Colon neoplasm metastases 2. Need for chemotherapeutic access. POSTOPERATIVE DIAGNOSES: 1. Colon neoplasm metastases 2. Need for chemotherapeutic access. PROCEDURES PERFORMED: 1. Ultrasound guided central venous access of the right internal jugular venous vein. 2. Fluoroscopic guidance for central venous access right internal jugular vein less than 1 seconds. 3. Placement of right internal jugular power port 6 O[place]i by DoveConviene, Xcela Plus Port ANESTHESIA: Gen. with local. ESTIMATED BLOOD LOSS: 5 mL. SPECIMENS REMOVED: None. COMPLICATIONS: None. FINDINGS: 1. No thrombus encountered along the right carotid artery or internal jugular vein. 2. Access of the right internal jugular vein under ultrasound guidance. 3. Fluoroscopy of less than 1 seconds. INDICATIONS: The patient is a 62-year-old male presents with metastatic colon neoplasm. She presents for chemotherapeutic access. Benefits and risks of surgical intervention were described including bleeding, infection, mechanical problems with his port. Informed consent was obtained. DESCRIPTION OR PROCEDURE: Patient was brought into the operating room, laid in supine position. After adequate general induction, the chest and right neck were prepped and draped in a standard sterile fashion including the shoulder with ChloraPrep. Timeout protocol was confirmed with the surgical team regarding the patient's name, procedure to be performed including preoperative medications for which she received IV antibiotics. Bilateral SCDs were placed. An ultrasound was used to capture views of the right internal jugular vein including right carotid artery, which was patent and without thrombus along its course. The right IJ was then localized using anesthetic for the skin. A 16 O[place]i needle was used to access the IJ. A guidewire was advanced into the IJ with dark nonpulsatile venous blood. Two fingerbreadths distal to the clavicle, on the lateral third, a transverse 1.5 to 2 cm incision was deepened into the skin after localizing the skin. A pocket was created for the port. The port on the back table was flushed with heparinized saline and then attached to the catheter tubing. An adapter was fastened to the actual port site over the tubing. The port easily had fit snug into the pocket. A subcutaneous tunneler was placed along the open end of the tubing and brought out through the separate stab incision. Fluoroscopic guidance confirmed no kinking along the tubing and the port site. Next, the J-wire was exchanged for a catheter sheath for which the tubing was cut to 24 cm and then advanced through the catheter sheath. The Peel-away sheath was then removed and the tubing was secured at the junction of the superior vena cava as well as the right atrium. The tubing was found to be crossed however functional. This was all done under fluoroscopic guidance under 1 seconds. Easy pullback as well as return and aspiration was obtained of the port site. The skin incision was closed using layers using 3-0 Vicryl for the subcu followed by 4-0 Monocryl in a running subcuticular fashion. At the stick site this was also reapproximated using 4-0 Monocryl. The incisions were covered with Optifoam, The skin was cleansed and Exofin liquid glue was applied. Optifoam dressing was placed over the port site. A total of 30 mL of local anesthetic was placed. At the end of the procedure, needle, sponge, and instrument count was verified correct by surgical garment fitter. Heparin lock of 5 mL was placed. The patient was prepared for exploratory laparotomy. Please see separate operative report.
--- NOTE | 2023-06-18 13:57 | FL ---
EXAMINATION TYPE: FL guided central line placemt HISTORY: Fluoroscopy time Impression: 1. Fluoroscopy support provided to the referring physician.
[2023-06-18 15:11] LABS: Glucose,Whole Blood 109 mg/dL (70-110)
[2023-06-18] MEDS ORDERED: METHYLENE BLUE 50 MG/10 ML AMPUL IV ONE (16:30)
--- NOTE | 2023-06-18 17:32 | XR ---
EXAMINATION TYPE: XR abdomen 1V DATE OF EXAM: 06/18/2023 4:25 PM CLINICAL INDICATION:Male, 62 years old with history of missing lap sponge; [facility] COMPARISON: None. TECHNIQUE: Supine radiographic view/s of the abdomen/pelvis obtained. FINDINGS: There is an extrinsic metallic structure over the field of view, and a couple of hemostats or surgica l instruments over the left lateral abdomen. There is what appears to be suture chain or anastomosis projected over the upper sacrum. No curvilinear radiopaque band is seen to clearly suggest retained l aparotomy sponge. Foci of gas over the field of view, at least some of which is likely intraperitonea l. Nonspecific bowel gas pattern. Osseous structures appear grossly intact with mild/moderate degener ative changes noted. IMPRESSION: No definite radiopaque structure is seen to suggest retained lap sponge.
--- NOTE | 2023-06-18 18:05 | P.OP ---
Date of Procedure: 06/18/23 Description of Procedure: SURGEON: JOANNE SARABIA MD PREOPERATIVE DIAGNOSES: 1. Large bowel obstruction due to sigmoid tumor 2. Protein malnutrition due to unintentional weight loss 3. Multiple liver lesions per computed tomography scan from malignant 4. CT findings of neoplasm, sigmoid colon 5. Small bowel obstruction due to large bowel obstruction POSTOPERATIVE DIAGNOSES: 1. 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 Multiple liver lesions 4. Multiple liver cysts 5. Small bowel obstruction due to large bowel obstruction 6. Abdominal compartment syndrome OPERATION: 1. Exploratory laparotomy with small bowel decompression and decompressive colotomy, 3.75 L stool 3. Sigmoid colectomy involving large proximal sigmoid tumor 4. Take down of colocutaneous fistula with drainage of abdominal wall abscess, 10 mL, left pelvis 5. Descending colostomy creation with defunctionalized rectum, Grimm's procedure 6. Open liver biopsy with needle liver biopsy, left lobe 7. Peritoneal lavage 1 L 8. Application of wound VAC, universal incisional wound VAC system 9. Placement of Gal-Rodriguez drain, right pelvis Anesthesia: GETA, local, epidural Estimated Blood Loss (ml): 200 Pathology: 1. Sigmoid colectomy 2. Small bowel enterotomy 3. Colotomy 4. Colostomy 5. Liver needle biopsy and open biopsy 6. Aerobic and anaerobic cultures left pelvis, diverticular abscess Condition: stable Disposition: floor COMPLICATIONS: None. FINDINGS: 1. Global distention of small bowel and large bowel causing abdominal compartment syndrome relieved after decompression of large and small bowel obstruction 2. Cecum and transverse colon dilated 9 cm without rupture or perforation 3. Erosion of sigmoid colon into left abdominal wall and muscle consistent with colocutaneous fistula with presence of diverticular abscess, 10 mL drained and cultures obtained 4. Multiple liver cysts including 4 mm multiple plaque-like lesions throughout the liver with open biopsy and needle biopsies obtained 5. Ley catheter at the level of bladder and prostate advance further during surgery into the bladder 6. Erosion of mass into left pelvis with concern of ureteral injury 7. Discussion with urologist orientation and mobility instructor with recommendation of methylene blue performed without ureteral leaks identified 8. Urine output moderately improved after decompression of abdominal compartment syndrome 9. Decompression small bowel at distal ileum with over 6 pounds of fluid evacuated 10. Decompression large bowel with additional 2 pounds of fluid evacuated, total 8.2 pounds decompressed from abdomen 11. Appendix unremarkable 12. Omental adhesions along the left pelvis involving sigmoid mass lysed 13. Diverticulosis of the sigmoid colon also identified, rectum unremarkable after palpation 14. Soft tissue questionable ureteral involvement tagged using 4-0 Prolene without leaks after methylene blue test 15. Confirmatory abdominal x-ray obtained to exclude foreign body within the abdomen after incorrect sponge count INDICATIONS: The patient is a 62-year-old gentleman who reports over 2-3 month history of feeling ill including weight loss over 30+ pounds and increased abdominal distention. Computed tomography scan demonstrated multiple cystic possibly neoplastic process of metastases including neoplasm causing obstruction of sigmoid colon. Patient has not had a prior colonoscopy. Cardiac risk assessment including attempted bowel prep was performed with placement of nasogastric tube as patient reported he was still passing stool. Benefits and risks procedure including Mediport placement for high likelihood of neoplastic metastases was described. Benefits risks of surgery including colostomy creation were reviewed. Patient agreed to proceed with surgery. All questions were answered and risks were reviewed with the his sister who would be his a power of banking attorney should he is unable to make decisions. Informed consent was obtained. DESCRIPTION: Patient was brought to the operating room after an epidural had been placed. The patient was placed in supine position whereby general induction was performed. Attention was brought first to placement of Mediport placed along the right chest. Please see separate operative report. After completion of Mediport, attention was brought to the abdomen. Abdomen had been prepped and draped in the standard sterile fashion with placement of nasogastric tube and Ley catheter was previously present. Ioban draping was also placed to minimize any contamination to the skin. Next, using #10 blade, the abdomen was entered along the midline whereby an incision was made just above the umbilicus down to the pubis. The peritoneum was entered. Next, self-retaining Uli retractor was placed with a bladder blade. To address his severe distention of the small bowel, a pursestring suture is placed along the distal jejunum using 3-0 silk. The abdomen was toweled off. A suction device was entered into the lumen of the jejunum after making an enterotomy. More than 2 L of bilious contents including gas was evacuated from the small bowel hence allowing visualization of the rest of the pelvis. The enterotomy was closed using Allis clamps Ethicon powered stapler 60 mm purple load. Inspection of the abdomen demonstrated no evidence of peritoneal studding or lesions along the surface of the liver. An active sigmoid volvulus was confirmed with the fixation point of a proximal sigmoid tumor along the right deep pelvis. The descending colon was also mobilized along the white line of Toldt. The sigmoid colon was mobilized along the medial and lateral attachments with care to avoid any injury to the ureters along the usual anatomical landmarks. The fixation point along the right deep pelvis was resected using LigaSure. The pathology incorporated 6 cm x 4 cm of the proximal sigmoid colon with hypervascularity of the serosa. The tumor was firm. A colonic tumor could not be excluded. The pathology was tacked 5 cm proximally and distally for resection using the IPM [place] tri-stapler 60 mm black loads. The mesentery was mobilized along the pelvis. Hemostasis was excellent throughout the case. Minimal contamination occurred throughout the case. The devitalized rectum was checked using 0 Prolene. The descending colon was prepared for maturation of a colostomy. Next, the rest of the colon was mobilized down to the rectum. Next, attention was brought to delivering and creating the descending colostomy. A point along the abdominal wall and rectus muscle was selected for his colostomy. Rick was used to elevate the skin and a #10 blade was taken across in tangential manner to create the skin defect of approximately quarter-size. The fat of the skin was mobilized using a small rich. The rectus muscle was identified and scored with a cruciate scoring of electro- Bovie cautery. Next, using a muscle-splitting technique with a hemostat, the peritoneum was entered. The peritoneum was widened such that 2 fingerbreadths could easily pass for delivering and evaginating the descending portion of the colon through the skin. The abdominal cavity was copiously irrigated using 1 liters of warm normal saline solution until completely clear and dry. The midline incision was closed using double-stranded 0 PDS. Next, the subcutaneous tissue was copiously irrigated with normal saline and dilute hydrogen peroxide. About the umbilicus interrupted 3-0 Vicryl dermal sutures were placed as to avoid any pierre around the umbilicus. For the rest of the incision, interrupted dermal sutures of 3-0 Vicryl were placed. A universal incisional wound VAC was applied along the midline. The midline incision was covered and attention was brought to maturation of the colostomy. The staple edge was divided and removed. Next quadrant sutures at 12 o'clock, 3 o'clock, 6 o'clock, and 9 o'clock position was made using serosa, mucosal and dermal bites using 2-0 Vicryl. Interrupted 3-0 Vicryl was placed in between all quadrants sutures to completely mature the ostomy. The stoma had an elevation of at least 1 centimeter. Hemostasis was checked. A Coloplast was then placed. All incisions and hemostasis was checked. At the end of the procedure, needle, sponge, and instrument count had been verified correct by surgical scheduler. The patient's family was updated on level of care.
[2023-06-18] MEDS ORDERED: BENZOCAINE/MENTHOL LOZENG 1 EACH LOZENGE MUCOUS MEM PRN (18:11)
--- NOTE | 2023-06-18 18:40 | XR ---
EXAMINATION TYPE: XR chest 1V confirm line [facility] DATE OF EXAM: 06/18/2023 COMPARISON: 06/17/2023 INDICATION: Mediport insertion TECHNIQUE: Single frontal view of the chest is obtained. FINDINGS: The heart size is normal. The pulmonary vasculature is normal. The lungs are clear. No pneumothorax is evident post port placement. Tip is within the proximal right atrium. IMPRESSION: 1. No acute pulmonary process. 2. No pneumothorax post port placement, tip in the proximal right atrium
[2023-06-18] MEDS: PIPERACILLIN-TAZOBACTAM 3.375 GM in SODIUM CHLORIDE 0.9% 100 ML IVPB SCH (19:29)
[2023-06-18] MEDS: SODIUM CHLORIDE 0.9% 1,000 ML IV SCH ×2 (19:29→20:58)
[2023-06-18] MEDS: ALVIMOPAN 12 MG CAPSULE PO SCH (19:30)
[2023-06-19] MEDS: SODIUM CHLORIDE 0.9% 1,000 ML IV SCH ×3 (02:41→18:03)
[2023-06-19] MEDS: PIPERACILLIN-TAZOBACTAM 3.375 GM in SODIUM CHLORIDE 0.9% 100 ML IVPB SCH ×3 (02:42→18:04)
--- NOTE | 2023-06-19 08:14 | P.PN ---
Progress Note - Text Progress Note Date: 06/19/23 (401) Anesthesia Postop day 1 Status post MediPort/diverting colostomy/exploratory laparotomy with epidural Day 2 Patient seen and examined. Doing well without complaint. VAS 2 out of 10. No nausea vomiting or pruritus. Ropivacaine 0.1% with Dilaudid 20 mcg/mL at 7 mL an hour. Objective: Vital signs reviewed Lungs: Good chest excursion Abdomen: Appears nondistended Other: Epidural Site Intact without induration. Dressing intact Neuro: No apparent motor block. Sensory within normal limits. Assessment: Status post MediPort/diverting colostomy/exploratory laparotomy postop day 1 Plan: Continue current care with your medical management. Anticipate reevaluation tomorrow.
[2023-06-19] MEDS: ALVIMOPAN 12 MG CAPSULE PO SCH ×2 (08:26→20:55)
[2023-06-19] MEDS: PANTOPRAZOLE 40 MG/10 ML VIAL IVP SCH (08:26)
[2023-06-19] MEDS: HEPARIN SODIUM,PORCINE 5,000 UNIT/ML 1 ML VIAL SQ SCH ×2 (08:26→20:55)
[2023-06-19 09:15] LABS: Blood Urea Nitrogen 16.9 mg/dL (9.0-27.0); Calcium 7.6 mg/dL (8.7-10.3); Chloride 107 mmol/L (96-109); Glucose 64 mg/dL (70-110); Potassium 3.7 mmol/L (3.5-5.5); Sodium 140 mmol/L (135-145)
--- NOTE | 2023-06-19 11:54 | P.PN ---
Subjective Progress Note Date: 06/19/23 CHIEF COMPLAINT: Abdominal pain HISTORY OF PRESENT ILLNESS: Patient is postop day #1 status post exploratory laparotomy and small bowel decompression and decompressive coloyomy, sigmoid colectomy involving the large proximal sigmoid tumor, takedown of colocutaneous fistula with drainage of abdominal wall abscess, descending colostomy with defunctionalized rectum, Nicholas procedure, open liver biopsy. And status post MediPort placement. Patient reports his pain is controlled. He has epidural. Denies any nausea or vomiting. He did tolerate low fiber breakfast. Ostomy is functioning. Afebrile. Sodium 140 potassium is 3.7 creatinine 1.0 CBC pending SALTY drain fluid for creatinine pending PHYSICAL EXAM: VITAL SIGNS: Reviewed GENERAL: Well-developed in no acute distress. HEENT: No sclera icterus. Extraocular movements grossly intact. Moist buccal mucosa. Head is atraumatic, normocephalic. Hears conversational speech. No nasal drainage. NECK: Supple without lymphadenopathy. CHEST: Non-labored respirations and equal bilateral excursions. CARDIOVASCULAR: Palpable 2+ radial pulses. ABDOMEN: Less distended. Mild tenderness around incision site. Prevana wound vac at midline. Stoma pink and edematous. Stool in colostomy bag. MUSCULOSKELETAL: No clubbing or cyanosis. NEUROLOGIC: No focal or lateralizing signs. Cranial nerves II through XII grossly intact. PSYCH: Appropriate affect. Alert and oriented to person, place and time. SKIN: Well perfused. Good skin turgor. ASSESSMENT: 1. 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 Multiple liver lesions 4. Multiple liver cysts 5. Small bowel obstruction due to large bowel obstruction 6. Abdominal compartment syndrome PLAN: -Consult urology for urethral stricture and possible ureteral injury during surgery -Check SALTY drain fluid creatinine -Continue epidural for pain management -Continue Ley catheter -Encourage patient to increase activity level -Encourage patient to use incentive spirometer -Continue low fiber diet -Continue IV fluids -GI prophylaxis Protonix and DVT prophylaxis subcu heparin Physician Sagger Soak note has been reviewed by physician. Signing provider agrees with the documented findings, assessment, and plan of care. Objective - Vital Signs Vital signs: Vital Signs Temp 98 F 06/19/23 07:17 Pulse 99 06/19/23 07:17 Resp 17 12/19/23 07:17 BP 115/74 06/19/23 07:17 Pulse Ox 90 L 06/19/23 08:30 FiO2 Intake & Output 06/18/23 06/19/23 06/19/23 18:59 06:59 18:59 Intake Total 4751 2590 Output Total 800 460 150 Balance 3951 2130 -150 Intake: IV 4751 Intake, IV Titration 1760 Amount Piperacillin-Tazobactam 3 200 .375 gm In Sodium Chloride 0.9% 100 ml @ 25 mls/hr IVPB Q8H [facility] Rx#: [id number] Sodium Chloride 0.9% 1, 1560 000 ml @ 130 mls/hr IV . Q7H42M ON LICENSE OF [facility] Rx#:[id number] Oral 830 Output: Drainage 60 Right Lower Abdomen 60 Urine 600 400 Stool 150 Estimated Blood Loss 200 Other: Voiding Method Toilet Toilet - Labs CBC & Chem 7: 06/18/23 08:51 06/19/23 05:28 Labs: Abnormal Lab Results - Last 24 Hours (Table) 06/19/23 Range/Units 05:28 Carbon Dioxide 21.0 L (21.6-31.8) mmol/L Glucose 64 L (70-110) mg/dL Calcium 7.6 L (8.7-10.3) mg/dL Microbiology - Last 24 Hours (Table) 06/18/23 16:45 Gram Stain - Preliminary Other - Other 06/18/23 17:44 Gram Stain - Preliminary Angelica
--- NOTE | 2023-06-19 14:15 | P.PN ---
Subjective Progress Note Date: 06/19/23 H&P Date: 06/13/23 Chief Complaint: Abdominal, small bowel obstruction He is complaining with abdominal bloating and flatulence for approximately the last 2 months patient presented to the emergency room with inability to pass gas or stool and significant abdominal pain, approximately 4 weeks ago he had a CT of the abdomen with no findings patient presented to the emergency room at [facility] today with symptoms and findings consistent with the small bowel obstruction and possible mass. 06/14/2023 Pain controlled on current medication regimen. No flatus, reports watery bowel movement with small bits of stool. Discloses unintentional weight loss of 37 pounds since April 13. Last colonoscopy was greater than [address] Cerda. NPO. Denies chest pain, palpitations or shortness of breath. Maintaining O2 sats in the 90s on room air. Afebrile. Lactic acidosis resolved. NG tube currently out. Denies nausea or vomiting. 06/15/2023 maintained on IV fluid hydration, renal function improved. Magnesium supplemented with current level within normal limits. Afebrile, normal WBC. Maintaining O2 sats in the high 90s on room air. Hemoglobin 10.5, platelets 524. Tumor markers negative. Urine culture pending. Currently denies pain. 06/18/2023 NPO, NG tube, scheduled for today. Bloated but states softer with the addition of NG tube. No flatus. passing watery bm with specks. Denies abdominal pain. Afebrile, normal WBC. Vital signs stable, maintaining O2 sats in the high 90s on room air. Hemoglobin 11.4, platelets 425. BUN 22, creatinine 0.9. 06/19/2023 status post exploratory laparotomy and small bowel decompression and decompressive coloyomy, sigmoid colectomy involving the large proximal sigmoid tumor, takedown of colocutaneous fistula with drainage of abdominal wall abscess, descending colostomy with defunctionalized rectum, Nicholas procedure, open liver biopsy, postop day #1 along with MediPort placement. Pain controlled with epidural. Consuming 50% of his low fiber breakfast this morning with no nausea or vomiting. Afebrile. BUN 16.9, creatinine 1. Maintaining O2 sats in the high 90s on 2 L nasal cannula. Objective - Vital Signs Vital signs: Vital Signs Temp 98 F 06/19/23 07:17 Pulse 99 06/19/23 07:17 Resp 17 06/19/23 07:17 BP 115/74 06/19/23 07:17 Pulse Ox 90 L 06/19/23 08:30 FiO2 Intake & Output 06/18/23 06/19/23 06/19/23 18:59 06:59 18:59 Intake Total 4751 2590 Output Total 800 460 150 Balance 3951 2130 -150 Intake: IV 4751 Intake, IV Titration 1760 Amount Piperacillin-Tazobactam 3 200 .375 gm In Sodium Chloride 0.9% 100 ml @ 25 mls/hr IVPB Q8H [facility] Rx#: [id number] Sodium Chloride 0.9% 1, 1560 000 ml @ 130 mls/hr IV . Q7H42M [facility] Rx#:[id number] Oral 830 Output: Drainage 60 Right Lower Abdomen 60 Urine 600 400 Stool 150 Estimated Blood Loss 200 Other: Voiding Method Toilet Toilet Toilet # Voids 1 - Exam General: Alert and oriented 3, sitting up in bed, no acute distress. HEENT: Atraumatic,Normocephalic, PERRL. EOMI. MMM. Neck: Supple, no JVD Cardiac: [Heart regular in rate and rhythm. No S3. No S4. No clicks, rubs. No murmur. Lungs: Unlabored, equal air entry, Clear to auscultation bilaterally. Abdomen: Soft, status post surgery, functioning ostomy-stoma edematous, pink, wound vac, SALTY drain, hypoactive bowel sounds Extremes: [No edema no cyanosis no claudication normal pulses Skin: Warm and dry, no rashes noted Neurologic: CN II - XII grossly intact. 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 Current Visit: Yes Status: Acute Code(s): D49.0 - NEOPLASM OF UNSPECIFIED BEHAVIOR OF DIGESTIVE SYSTEM SNOMED Code(s): 789002206 (7) Small bowel obstruction Current Visit: Yes Status: Acute Priority: High Code(s): K56.609 - UNSP INTESTNL OBST, UNSP TO PARTIAL VERSUS COMPLETE OBST SNOMED Code(s): 370590935 (2) Status post exploratory laparotomy and small bowel decompression and d ecompressive coloyomy, sigmoid colectomy involving the large proximal sigmoid tumor, takedown of colocutaneous fistula with drainage of abdominal wall abscess, descending colostomy with defunctionalized rectum, Nicholas procedure, open liver biopsy: - large bowels infection due to sigmoid stenosis/tumor -sigmoid diverticulitis with abscess and colocutaneous fistula, left pelvis -small bowel obstruction due to large bowel obstruction -Multiple liver lesions,cysts -Abdominal compartment syndrome (4) unintentional weight loss of 37 pounds over the last 2 months (5) dehydration (6) acute renal failure secondary to the above (7) lactic acidosis, resolved (8) hypomagnesemia (9) thrombocytopenia (10) anemia Plan: Continue on current medication regime ,monitoring and symptomatic treatm ent.Maintain IV fluid hydration. DVT prophylaxis, Pain management, diet advancement as per general surgery. Urology consult in place patient is secondary to urethral stricture, possible ureteral injury. Close monitoring of renal function with repeat labs ordered for a.m. Increase ambulation as to lerated. Pathology pending. Prognosis guarded given multiple complex medical issues. The impression and plan of care has been dictated as directed. : I performed a history and examination of this patient, discussed the same with the dictator. I agree with the dictator's note ,documented as a scribe. Any additional findings or plans will be noted.
--- NOTE | 2023-06-19 15:41 | P.GSCN ---
History of Present Illness Consult date: 06/19/23 Reason for Consult: Pelvic mass, rule out ureteral injury. Requesting physician: Gabby Armstrong History of present illness: The patient is a 62-year-old white male admitted with symptoms and findings consistent with a small bowel obstruction. He was found to have a sigmoid mass. He underwent exploratory laparotomy yesterday by Dr. Armstrong, along with a sigmoid colectomy, takedown of colocutaneous fistula with drainage of abdominal wall abscess, liver biopsy, and Nicholas procedure. Because of the left-sided pelvic mass, there was concern of the integrity of the left ureter. I am consulted for this reason. I have reviewed the patient's admitting CT scan, which showed no urologic abnormalities. Specifically, there was no evidence of hydronephrosis. The patient has an unremarkable urologic history, other than the fact that he had an episode of dark urine within the past year which resolved with Rocephin. He underwent a right orchiopexy as a child. Review of Systems - Constitutional Reports weakness, Reports weight loss, Denies fever - Gastrointestinal Reports abdominal pain, Reports loss of appetite, Denies nausea, Denies vomiting - Genitourinary Denies dysuria, Denies hematuria Past Medical History Past Medical History: GI Bleed, Hyperlipidemia History of Any Multi-Drug Resistant Organisms: None Reported Past Surgical History: Hernia Repair Additional Past Surgical History / Comment(s): double hernia 1969; non desended left testicle; colonscopy Past Anesthesia/Blood Transfusion Reactions: No Reported Reaction Past Psychological History: No Psychological Hx Reported Smoking Status: Never smoker Past Alcohol Use History: Rare Past Drug Use History: None Reported - Past Family History Father Family Medical History: Cancer (lung cancer, smoker) Additional Family Medical History / Comment(s): Grandfather with colon cancer Medications and Allergies Home Medications Medication Instructions Recorded Confirmed Type Atorvastatin [Lipitor] 40 mg PO PC-SUPPER 06/13/23 06/13/23 History Cetirizine HCl [Zyrtec] 10 mg PO DAILY 06/13/23 06/13/23 History Allergies Allergy/AdvReac Type Severity Reaction Status Date / Time No Known Allergies Allergy Verified 06/18/23 11:48 Surgical - Exam Vital Signs Temp Pulse Resp BP Pulse Ox 97.5 F L 142 H 20 106/69 99 06/13/23 12:11 06/13/23 12:11 06/13/23 12:11 06/13/23 12:11 06/13/23 12:11 - General well developed, well nourished, no distress - Respiratory normal respiratory effort - Abdomen Dressing dry and intact. Left-sided colostomy. SALTY drain is draining a small amount of serosanguineous fluid. - Genitourinary Normal phallus. The Ley catheter is draining urine which is faintly blue- tinged as a result of methylene blue which was injected intraoperatively. The scrotum is normal, as is the left testicle. The right testicle is high riding and atrophic. - Psychiatric oriented to time, oriented to person, oriented to place, speech is normal, memory intact Results - Labs 06/18/23 08:51 06/19/23 05:28 Abnormal Lab Results - Last 24 Hours (Table) 06/19/23 Range/Units 05:28 Carbon Dioxide 21.0 L (21.6-31.8) mmol/L Glucose 64 L (70-110) mg/dL Calcium 7.6 L (8.7-10.3) mg/dL Microbiology - Last 24 Hours (Table) 06/18/23 16:45 Gram Stain - Preliminary Other - Other 06/18/23 17:44 Gram Stain - Preliminary [facility] Diabetes panel 06/19/23 Range/Units 05:28 Sodium 140 (135-145) mmol/L Potassium 3.7 (3.5-5.5) mmol/L Chloride 107 (96-109) mmol/L Carbon Dioxide 21.0 L (21.6-31.8) mmol/L BUN 16.9 (9.0-27.0) mg/dL Creatinine 1.0 (0.6-1.5) mg/dL Glucose 64 L (70-110) mg/dL Calcium 7.6 L (8.7-10.3) mg/dL Calcium panel 06/19/23 Range/Units 05:28 Calcium 7.6 L (8.7-10.3) mg/dL Pituitary panel 06/19/23 Range/Units 05:28 Sodium 140 (135-145) mmol/L Potassium 3.7 (3.5-5.5) mmol/L Chloride 107 (96-109) mmol/L Carbon Dioxide 21.0 L (21.6-31.8) mmol/L BUN 16.9 (9.0-27.0) mg/dL Creatinine 1.0 (0.6-1.5) mg/dL Glucose 64 L (70-110) mg/dL Calcium 7.6 L (8.7-10.3) mg/dL Adrenal panel 06/19/23 Range/Units 05:28 Sodium 140 (135-145) mmol/L Potassium 3.7 (3.5-5.5) mmol/L Chloride 107 (96-109) mmol/L Carbon Dioxide 21.0 L (21.6-31.8) mmol/L BUN 16.9 (9.0-27.0) mg/dL Creatinine 1.0 (0.6-1.5) mg/dL Glucose 64 L (70-110) mg/dL Calcium 7.6 L (8.7-10.3) mg/dL - Imaging CT scan - abdomen: report reviewed, image reviewed Assessment and Plan Assessment: The CT scan obtained at the time of admission showed no evidence of hydronephrosis. Minimal SALTY fluid output makes a ureteral laceration unlikely. However, this does not rule out ureteral ligation. (1) Colonic mass Current Visit: Yes Status: Acute Priority: High Code(s): K63.89 - OTHER SPECIFIED DISEASES OF INTESTINE SNOMED Code(s): 828673480 Plan: - Await SALTY fluid creatinine level result - Consider renal ultrasound to rule out new onset hydronephrosis Time with Patient: Greater than 30
[2023-06-19] MEDS: ROPIVACAINE 250 MG, HYDROMORPHONE (PF) 5 MG in SODIUM CHLORIDE 0.9% 200 ML EPIDURAL PRN (16:37)
--- NOTE | 2023-06-19 16:51 | P.PN ---
Subjective Progress Note Date: 06/19/23 Principal diagnosis: Sigmoid colon mass, liver lesions In f/u today pt reports ostomy output, denies fever, N, V. Objective - Vital Signs Vital signs: Vital Signs Temp 98 F 06/19/23 07:17 Pulse 99 06/19/23 07:17 Resp 17 06/19/23 07:17 BP 115/74 06/19/23 07:17 Pulse Ox 90 L 06/19/23 08:30 FiO2 Intake & Output 06/18/23 06/19/23 06/19/23 18:59 06:59 18:59 Intake Total 4751 2590 Output Total 800 460 150 Balance 3951 2130 -150 Intake: IV 4751 Intake, IV Titration 1760 Amount Piperacillin-Tazobactam 3 200 .375 gm In Sodium Chloride 0.9% 100 ml @ 25 mls/hr IVPB Q8H [facility] Rx#: [id number] Sodium Chloride 0.9% 1, 1560 000 ml @ 130 mls/hr IV . Q7H42M [facility] Rx#:[id number] Oral 830 Output: Drainage 60 Right Lower Abdomen 60 Urine 600 400 Stool 150 Estimated Blood Loss 200 Other: Voiding Method Toilet Toilet Toilet # Voids 1 - Constitutional General appearance: Present: average body habitus, cooperative, no acute distress - EENT Eyes: Present: anicteric sclerae, EOMI ENT: Present: hearing grossly normal - Respiratory Details: resp even and unlabored - Cardiovascular Details: skin warm and dry but pale - Peripheral edema leg Peripheral Edema: bilateral: Trace - Neurologic Neurologic: Present: CNII-XII intact - Musculoskeletal Musculoskeletal: Present: strength equal bilaterally - Psychiatric Psychiatric: Present: A&O x's 3, appropriate affect, intact judgment & insight - Labs CBC & Chem 7: 06/18/23 08:51 06/19/23 05:28 Labs: Abnormal Lab Results - Last 24 Hours (Table) 06/19/23 Range/Units 05:28 Carbon Dioxide 21.0 L (21.6-31.8) mmol/L Glucose 64 L (70-110) mg/dL Calcium 7.6 L (8.7-10.3) mg/dL Microbiology - Last 24 Hours (Table) 06/18/23 16:45 Gram Stain - Preliminary Other - Other 06/18/23 17:44 Gram Stain - Preliminary [facility] Assessment and Plan (1) Small bowel obstruction Current Visit: Yes Status: Acute Priority: High Code(s): K56.609 - UNSP INTESTNL OBST, UNSP TO PARTIAL VERSUS COMPLETE OBST SNOMED Code(s): 415562439 Plan: SBO -Discussed with pt concerning findings on imaging-dilated bowel with thickening at sigmoid. -S/P Surgical intervention, discussed with pt what was reported in op notes. Pending path. -Dr. Swartz did discuss possible scenarios for treatment-metastatic disease vs local disease-as well as intent of treatments. Pt questions were answered to his satisfaction. Plan for F/U in 4-5 weeks with Medical Onc for final recommendations -Molecular testing will be requested once path returned -No treatment would start until pt is healed from surgery. Pt encouraged to eat, drink and work with PT/OT to get stronger and to help with healing Thrombocythemia -Mild, most likely reactive -Iron studies most consistent with inflammation. No supplemental iron at this time attests: I seen and examined patient, performed H&P, developed impression and plan of care. Discussed with dictator. Agree with documentation, dictated as a scribe.
[2023-06-20] MEDS: SODIUM CHLORIDE 0.9% 1,000 ML IV SCH ×4 (00:02→23:05)
[2023-06-20] MEDS: PIPERACILLIN-TAZOBACTAM 3.375 GM in SODIUM CHLORIDE 0.9% 100 ML IVPB SCH ×3 (01:53→17:37)
[2023-06-20 08:31] LABS: Basophils # (A) 0.02 X 10*3/uL (0.00-0.10); Basophils % (A) 0.2 %; Eosinophils # (A) 0.07 X 10*3/uL (0.04-0.35); Eosinophils % (A) 0.8 %; HCT 30.9 % (39.6-50.0); HGB 9.4 g/dL (13.0-17.0); Lymphocytes # (A) 0.53 X 10*3/uL (0.90-5.00); Lymphocytes % (A) 5.8 %; MCH 29.3 pg (27.0-32.0); MCHC 30.4 g/dL (32.0-37.0); MCV 96.3 FL (80.0-97.0); Mean Platelet Volume 10.9 FL (9.5-12.2); Monocytes # (A) 0.45 X 10*3/uL (0.20-1.00); Monocytes % (A) 4.9 %; NRBC Per 100 WBC 0 X 10*3/uL (0.00-0.01); Neutrophils # (A) 7.99 X 10*3/uL (1.80-7.70); Neutrophils % (A) 87.8 %; Platelet Count 358 X 10*3/uL (140-440); RBC 3.21 X 10*6/uL (4.40-5.60); WBC 9.11 X 10*3/uL (4.50-10.00)
[2023-06-20] MEDS: HEPARIN SODIUM,PORCINE 5,000 UNIT/ML 1 ML VIAL SQ SCH ×2 (09:00→20:41)
[2023-06-20] MEDS: PANTOPRAZOLE 40 MG/10 ML VIAL IVP SCH (09:01)
[2023-06-20] MEDS: ALVIMOPAN 12 MG CAPSULE PO SCH ×2 (09:01→17:39)
--- NOTE | 2023-06-20 09:01 | P.PN ---
Subjective Progress Note Date: 06/20/23 Principal diagnosis: Colonic mass Patient has no complaints at this time. SALTY output has increased significantly (if this is being accurately recorded), but the creatinine level of the SALTY fluid is 0.9 Objective - Vital Signs Vital signs: Vital Signs Temp 99.9 F H 06/20/23 07:26 Pulse 114 H 06/20/23 07:26 Resp 16 06/20/23 07:26 BP 115/73 06/20/23 07:26 Pulse Ox 92 L 06/20/23 07:26 FiO2 Intake & Output 06/19/23 06/20/23 06/20/23 18:59 06:59 18:59 Intake Total 1560 1180 Output Total 2019 2959 360 Balance -460 -1779 -360 Weight 73.936 kg Intake: Intake, IV Titration 1560 Amount Sodium Chloride 0.9% 1, 1560 000 ml @ 130 mls/hr IV . Q7H42M [facility] Rx#:[id number] Oral 1180 Output: Drainage 220 609 60 Right Lower Abdomen 220 609 60 Urine 350 300 Stool 1450 2050 300 Other: Voiding Method Toilet Indwelling Catheter # Voids 1 - Constitutional General appearance: Present: average body habitus, no acute distress - Psychiatric Psychiatric: Present: A&O x's 3 - Labs CBC & Chem 7: 06/20/23 05:55 06/19/23 05:28 Labs: Abnormal Lab Results - Last 24 Hours (Table) 06/19/23 06/20/23 Range/Units 05:28 05:55 RBC 3.21 L (4.40-5.60) X 10*6/uL Hgb 9.4 L (13.0-17.0) g/dL Hct 30.9 L (39.6-50.0) % MCHC 30.4 L (32.0-37.0) g/dL RDW 17.0 H (11.5-14.5) % Immature Gran # 0.05 H (0.00-0.04) X 10*3/uL Neutrophils # 7.99 H (1.80-7.70) X 10*3/uL Lymphocytes # 0.53 L (0.90-5.00) X 10*3/uL Carbon Dioxide 21.0 L (21.6-31.8) mmol/L Glucose 64 L (70-110) mg/dL Calcium 7.6 L (8.7-10.3) mg/dL Microbiology - Last 24 Hours (Table) 06/18/23 17:44 Gram Stain - Preliminary [facility] Body Fluid Culture - Preliminary 06/18/23 16:45 Gram Stain - Preliminary Other - Other Assessment and Plan Assessment: The CT scan obtained at the time of admission showed no evidence of hydronephrosis. The fact that the creatinine level of the SALTY fluid is that of serum rules out a ureteral leak. However, this does not rule out ureteral ligation. (1) Colonic mass Current Visit: Yes Status: Acute Priority: High Code(s): K63.89 - OTHER SPECIFIED DISEASES OF INTESTINE SNOMED Code(s): 537972289 Plan: - Renal ultrasound to rule out new onset hydronephrosis
[2023-06-20 09:28] LABS: Magnesium 1.7 mg/dL (1.5-2.4)
[2023-06-20 09:37] LABS: Blood Urea Nitrogen 14.1 mg/dL (9.0-27.0); Chloride 101 mmol/L (96-109); Glucose 115 mg/dL (70-110); Sodium 134 mmol/L (135-145)
[2023-06-20 09:38] LABS: Calcium 7.9 mg/dL (8.7-10.3); Carbon Dioxide 25.6 mmol/L (21.6-31.8)
--- NOTE | 2023-06-20 10:02 | US ---
EXAMINATION TYPE: US renals and bladder DATE OF EXAM: 06/20/2023 COMPARISON: NONE CLINICAL INDICATION: Male, 62 years old with history of Colonic mass; recent bowel obstruction from m ass, post surgery, no h/o renal issues EXAM MEASUREMENTS: Right Kidney: 10.3 x 3.9 x 4.4 cm Left Kidney: 11.3 x 3.7 x 5.3 cm Right Kidney: No hydronephrosis or masses seen Left Kidney: No hydronephrosis or masses seen Bladder: cohn seen Renal cortex has a normal echogenicity and thickness. IMPRESSION: No hydronephrosis or nephrolithiasis
--- NOTE | 2023-06-20 10:47 | P.PN ---
Subjective Progress Note Date: 06/20/23 CHIEF COMPLAINT: Abdominal pain HISTORY OF PRESENT ILLNESS: Patient is postop day #2 status post exploratory laparotomy and small bowel decompression and decompressive colotomy, sigmoid colectomy involving the large proximal sigmoid tumor, takedown of colocutaneous fistula with drainage of abdominal wall abscess, descending colostomy with defunctionalized rectum, Nicholas procedure, open liver biopsy. And status post MediPort placement. Patient reports his pain is controlled. He has epidural. Denies any nausea or vomiting. He did tolerate low fiber breakfast. Ostomy is functioning stool is more liquidy than yesterday with a lot of output. low grade temp 99.9 HR 114 BP 115/73. WBC 9.11 Hgb 11.4-9.4 platelets 358 sodium is 134 potassium 3.0 creatinine 1.0 magnesium 1.7 SALTY drain fluid creatinine 0.9. So no evidence of ureteral injury. SALTY drain 520 output yesterday and 309 serosanguineous output during the night. Patient seen by neurology. They ordered a renal ultrasound. No evidence of hydronephrosis. PHYSICAL EXAM: VITAL SIGNS: Reviewed GENERAL: Well-developed in no acute distress. HEENT: No sclera icterus. Extraocular movements grossly intact. Moist buccal mucosa. Head is atraumatic, normocephalic. Hears conversational speech. No nasal drainage. NECK: Supple without lymphadenopathy. CHEST: Non-labored respirations and equal bilateral excursions. CARDIOVASCULAR: Palpable 2+ radial pulses. ABDOMEN: Less distended. Mild tenderness around incision site. Prevana wound vac at midline. Stoma is beefy red and edematous. Liquidy Stool in colostomy bag. MUSCULOSKELETAL: No clubbing or cyanosis. NEUROLOGIC: No focal or lateralizing signs. Cranial nerves II through XII grossly intact. PSYCH: Appropriate affect. Alert and oriented to person, place and time. SKIN: Well perfused. Good skin turgor. ASSESSMENT: 1. 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 Multiple liver lesions 4. Multiple liver cysts 5. Small bowel obstruction due to large bowel obstruction 6. Abdominal compartment syndrome PLAN: -Continue epidural for pain management -Continue Ley catheter -Encourage patient to increase activity level -Encourage patient to use incentive spirometer -Continue low fiber diet -Continue IV fluids -GI prophylaxis Protonix and DVT prophylaxis subcu heparin Physician Silverer note has been reviewed by physician. Signing provider agrees with the documented findings, assessment, and plan of care. Objective - Vital Signs Vital signs: Vital Signs Temp 99.9 F H 06/20/23 07:26 Pulse 114 H 06/20/23 07:26 Resp 16 06/20/23 07:26 BP 115/73 06/20/23 07:26 Pulse Ox 92 L 06/20/23 07:26 FiO2 Intake & Output 06/19/23 06/20/23 06/20/23 18:59 06:59 18:59 Intake Total 1560 1180 Output Total 2019 2959 650 Balance -460 -1779 -650 Weight 73.936 kg Intake: Intake, IV Titration 1560 Amount Sodium Chloride 0.9% 1, 1560 000 ml @ 130 mls/hr IV . Q7H42M [facility] Rx#:[id number] Oral 1180 Output: Drainage 220 609 100 Right Lower Abdomen 220 609 100 Urine 350 300 Stool 1450 2050 550 Other: Voiding Method Toilet Indwelling Catheter Indwelling Catheter # Voids 1 - Labs CBC & Chem 7: 06/20/23 05:55 06/20/23 05:55 Labs: Abnormal Lab Results - Last 24 Hours (Table) 06/20/23 06/20/23 Range/Units 05:55 05:55 RBC 3.21 L (4.40-5.60) X 10*6/uL Hgb 9.4 L (13.0-17.0) g/dL Hct 30.9 L (39.6-50.0) % MCHC 30.4 L (32.0-37.0) g/dL RDW 17.0 H (11.5-14.5) % Immature Gran # 0.05 H (0.00-0.04) X 10*3/uL Neutrophils # 7.99 H (1.80-7.70) X 10*3/uL Lymphocytes # 0.53 L (0.90-5.00) X 10*3/uL Sodium 134 L (135-145) mmol/L Potassium 3.0 L (3.5-5.5) mmol/L Glucose 115 H (70-110) mg/dL Calcium 7.9 L (8.7-10.3) mg/dL Microbiology - Last 24 Hours (Table) 06/18/23 17:44 Gram Stain - Preliminary [facility] Body Fluid [facility] - Preliminary 06/18/23 16:45 Gram Stain - Preliminary Other - Other
--- NOTE | 2023-06-20 13:17 | P.PN ---
Progress Note - Text Progress Note Date: 06/20/23 Anesthesia Postop day #2 Status post MediPort insertion diverting colostomy with epidural day #3 Patient seen and examined. Doing well without complaint. VAS 2 out of 10. No nausea vomiting or pruritus. Ropivacaine 0.1% with Dilaudid 20 mcg/mL at 7 mL an hour. +Ambulation Objective: Vital signs reviewed Lungs: Good chest excursion Abdomen: Appears nondistended Other: Epidural Site Intact without induration. Dressing intact Neuro: No apparent motor block. Sensory within normal limits. Assessment: Status post MediPort insertion with diverting colostomy postop day #2 Plan: Continue current care with your medical management. Anticipate d iscontinued catheter tomorrow. Platelets are currently adequate. Patient's on heparin subcu for DVT prophylaxis this will be need to be held for 6 hours prior to epidural pull.
[2023-06-20] MEDS ORDERED: Potassium Replacement Protocol 1 EACH MISC MISCELLANE PRN ×2 (13:41→17:15)
[2023-06-20] MEDS ORDERED: Magnesium Replacement Protocol 1 EACH MISC MISCELLANE PRN (13:41)
--- NOTE | 2023-06-20 14:02 | P.PN ---
Subjective Progress Note Date: 06/20/23 H&P Date: 06/13/23 Chief Complaint: Abdominal, small bowel obstruction He is complaining with abdominal bloating and flatulence for approximately the last 2 months patient presented to the emergency room with inability to pass gas or stool and significant abdominal pain, approximately 4 weeks ago he had a CT of the abdomen with no findings patient presented to the emergency room at [facility] today with symptoms and findings consistent with the small bowel obstruction and possible mass. 06/14/2023 Pain controlled on current medication regimen. No flatus, reports watery bowel movement with small bits of stool. Discloses unintentional weight loss of 37 pounds since April 13. Last colonoscopy was greater than [address] Cerda. NPO. Denies chest pain, palpitations or shortness of breath. Maintaining O2 sats in the 90s on room air. Afebrile. Lactic acidosis resolved. NG tube currently out. Denies nausea or vomiting. 06/15/2023 maintained on IV fluid hydration, renal function improved. Magnesium supplemented with current level within normal limits. Afebrile, normal WBC. Maintaining O2 sats in the high 90s on room air. Hemoglobin 10.5, platelets 524. Tumor markers negative. Urine culture pending. Currently denies pain. 06/18/2023 NPO, NG tube, scheduled for today. Bloated but states softer with the addition of NG tube. No flatus. passing watery bm with specks. Denies abdominal pain. Afebrile, normal WBC. Vital signs stable, maintaining O2 sats in the high 90s on room air. Hemoglobin 11.4, platelets 425. BUN 22, creatinine 0.9. 06/19/2023 status post exploratory laparotomy and small bowel decompression and decompressive coloyomy, sigmoid colectomy involving the large proximal sigmoid tumor, takedown of colocutaneous fistula with drainage of abdominal wall abscess, descending colostomy with defunctionalized rectum, Nicholas procedure, open liver biopsy, postop day #1 along with MediPort placement. Pain controlled with epidural. Consuming 50% of his low fiber breakfast this morning with no nausea or vomiting. Afebrile. BUN 16.9, creatinine 1. Maintaining O2 sats in the high 90s on 2 L nasal cannula. 06/20/2023 pain controlled with epidural. Tolerating low fiber diet with no nausea or vomiting. Continues on Entereg. Functioning colostomy. Mild tachycardia, IV fluids currently at 130/hr as per general surgery. Maintained on Zosyn. T-max 99.9, normal WBC. Preliminary wound culture reporting gram- negative bacilli, urine culture reporting 50-100,000 CFU.ml,E. coli. Hemoglobin decreased 9.4, platelets 358. Potassium 3, magnesium 1.7, replacement protocols ordered. BUN 14, creatinine 1. SALTY drain fluid creatinine 0.9, no evidence of ureteral leak as per urology. Renal ultrasound ordered. Objective - Vital Signs Vital signs: Vital Signs Temp 99.9 F H 06/20/23 07:26 Pulse 114 H 06/20/23 07:26 Resp 16 06/20/23 07:26 BP 115/73 06/20/23 07:26 Pulse Ox 92 L 06/20/23 07:26 FiO2 Intake & Output 06/19/23 06/20/23 06/20/23 18:59 06:59 18:59 Intake Total 1560 1180 Output Total 2019 2959 1310 Balance -460 -1779 -1310 Weight 73.936 kg Intake: Intake, IV Titration 1560 Amount Sodium Chloride 0.9% 1, 1560 000 ml @ 130 mls/hr IV . Q7H42M [facility] Rx#:[id number] Oral 1180 Output: Drainage 220 609 210 Right Lower Abdomen 220 609 210 Urine 350 300 Stool 1450 2050 1100 Other: Voiding Method Toilet Indwelling Catheter Indwelling Catheter # Voids 1 - Exam General: Alert and oriented 3, sitting up in bed, no acute distress HEENT: Atraumatic,Normocephalic, PERRL. EOMI. MMM. Neck: Supple, no JVD Cardiac: [Heart regular in rate and rhythm. No S3. No S4. No clicks, rubs. No murmur. Lungs: Unlabored, equal air entry, Clear to auscultation bilaterally. Abdomen: Soft, status post surgery, functioning ostomy-stoma edematous, pink, wound vac, SALTY drain, hypoactive bowel sounds Extremes: Trace edema, no cyanosis no claudication normal pulses Skin: Warm and dry, no rashes noted Neurologic: CN II - XII grossly intact. No focal deficits Microbiology 06/18/23 16:45 Other - Other Gram Stain - Preliminary 06/18/23 16:45 Other - Other Wound Culture - Preliminary Gram Neg Bacilli 06/18/23 17:44 [place] Gram Stain - Preliminary 06/18/23 17:[address] [facility] Body Fluid Culture - Preliminary 06/13/23 12:57 Urine,Clean Catch Urine Culture - Final Escherichia coli - Labs CBC & Chem 7: 06/20/23 05:55 06/20/23 05:55 Labs: Abnormal Lab Results - Last 24 Hours (Table) 06/20/23 06/20/23 Range/Units 05:55 05:55 RBC 3.21 L (4.40-5.60) X 10*6/uL Hgb 9.4 L (13.0-17.0) g/dL Hct 30.9 L (39.6-50.0) % MCHC 30.4 L (32.0-37.0) g/dL RDW 17.0 H (11.5-14.5) % Immature Gran # 0.05 H (0.00-0.04) X 10*3/uL Neutrophils # 7.99 H (1.80-7.70) X 10*3/uL Lymphocytes # 0.53 L (0.90-5.00) X 10*3/uL Sodium 134 L (135-145) mmol/L Potassium 3.0 L (3.5-5.5) mmol/L Glucose 115 H (70-110) mg/dL Calcium 7.9 L (8.7-10.3) mg/dL Microbiology - Last 24 Hours (Table) 06/18/23 16:45 Gram Stain - Preliminary Other - Other Wound Culture - Preliminary Gram Neg Bacilli 06/18/23 17:44 Gram Stain - Preliminary [place] Body Fluid Culture - Preliminary Assessment and Plan Assessment: (1) Gastrointestinal neoplasm, sigmoid, with liver lesions, 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 Current Visit: Yes Status: Acute Code(s): D49.0 - NEOPLASM OF UNSPECIFIED BEHAVIOR OF DIGESTIVE SYSTEM SNOMED Code(s): 555111829 (7) Small bowel obstruction Current Visit: Yes Status: Acute Priority: High Code(s): K56.609 - UNSP INTESTNL OBST, UNSP TO PARTIAL VERSUS COMPLETE OBST SNOMED Code(s): 561079280 (2) Status post exploratory laparotomy and small bowel decompression and decompressive coloyomy, sigmoid colectomy involving the large proximal sigmoid tumor, takedown of colocutaneous fistula with drainage of abdominal wall abscess, descending colostomy with defunctionalized rectum, Nicholas procedure, open liver biopsy: - large bowels infection due to sigmoid stenosis/tumor -sigmoid diverticulitis with abscess and colocutaneous fistula, left pelvis -small bowel obstruction due to large bowel obstruction -Multiple liver lesions,cysts -Abdominal compartment syndrome (4) unintentional weight loss of 37 pounds over the last 2 months (5) dehydration (6) acute renal failure secondary to the above (7) lactic acidosis, resolved (8) hypomagnesemia (9) thrombocytopenia (10) anemia (11) hypokalemia Plan: Continue on current medication regime ,monitoring and symptomatic treatment. Electrolyte replacement protocols ordered for both potassium and magnesium. Maintain IV fluid hydration. Epidural /pain management as per primary. Renal ultrasound pending. Ostomy teaching pending. Close monitoring of renal function with repeat labs ordered for a.m. Pathology pending. Increase ambulation as tolerated. PT/OT consulted. Prognosis guarded given multiple complex medical issues. The impression and plan of care has been dictated as directed. : I performed a history and examination of this patient, discussed the same with the dictator. I agree with the dictator's note ,documented as a scribe. Any additional findings or plans will be noted.
--- NOTE | 2023-06-20 14:15 | P.PN ---
Subjective Progress Note Date: 06/20/23 Principal diagnosis: Sigmoid colon mass, liver lesions In f/u today pt cont to have ostomy output, denies fever, N, V. He is tolerating oral intake, he is wanting to walk in room today, he was up in chair for most of the day yesterday. Objective - Vital Signs Vital signs: Vital Signs Temp 99.9 F H 06/20/23 07:26 Pulse 114 H 06/20/23 07:26 Resp 16 06/20/23 07:26 BP 115/73 06/20/23 07:26 Pulse Ox 92 L 06/20/23 07:26 FiO2 Intake & Output 06/19/23 06/20/23 06/20/23 18:59 06:59 18:59 Intake Total 1560 1180 Output Total 2019 2959 650 Balance -460 -1779 -650 Weight 73.936 kg Intake: Intake, IV Titration 1560 Amount Sodium Chloride 0.9% 1, 1560 000 ml @ 130 mls/hr IV . Q7H42M [facility] Rx#:[id number] Oral 1180 Output: Drainage 220 609 100 Right Lower Abdomen 220 609 100 Urine 350 300 Stool 1450 2050 550 Other: Voiding Method Toilet Indwelling Catheter Indwelling Catheter # Voids 1 - Constitutional General appearance: Present: average body habitus, cooperative, no acute distress - EENT Eyes: Present: anicteric sclerae, EOMI ENT: Present: hearing grossly normal - Respiratory Details: resp even and unlabored - Integumentary Integumentary: Present: pale - Neurologic Neurologic: Present: CNII-XII intact - Musculoskeletal Musculoskeletal: Present: strength equal bilaterally - Psychiatric Psychiatric: Present: A&O x's 3, appropriate affect, intact judgment & insight - Labs CBC & Chem 7: 06/20/23 05:55 06/20/23 05:55 Labs: Abnormal Lab Results - Last 24 Hours (Table) 06/19/23 06/20/23 Range/Units 05:28 05:55 RBC 3.21 L (4.40-5.60) X 10*6/uL Hgb 9.4 L (13.0-17.0) g/dL Hct 30.9 L (39.6-50.0) % MCHC 30.4 L (32.0-37.0) g/dL RDW 17.0 H (11.5-14.5) % Immature Gran # 0.05 H (0.00-0.04) X 10*3/uL Neutrophils # 7.99 H (1.80-7.70) X 10*3/uL Lymphocytes # 0.53 L (0.90-5.00) X 10*3/uL Carbon Dioxide 21.0 L (21.6-31.8) mmol/L Glucose 64 L (70-110) mg/dL Calcium 7.6 L (8.7-10.3) mg/dL Microbiology - Last 24 Hours (Table) 06/18/23 17:44 Gram Stain - Preliminary [facility] Body Fluid Culture - Preliminary 06/18/23 16:45 Gram Stain - Preliminary Other - Other Assessment and Plan (1) Small bowel obstruction Current Visit: Yes Status: Acute Priority: High Code(s): K56.609 - UNSP INTESTNL OBST, UNSP TO PARTIAL VERSUS COMPLETE OBST SNOMED Code(s): 035295442 Plan: SBO -Discussed with pt concerning findings on imaging-dilated bowel with thickening at sigmoid. -S/P Surgical intervention. Pending path. -F/U in 4-5 weeks with Medical Onc for final recommendations-appt in DC plan -Molecular testing orders sent. Specimen will be requested once path returned -No treatment would start until pt is healed from surgery. Pt encouraged to eat, drink and work with PT/OT to get stronger and to help with healing. He is motivated and wanting to get stronger Thrombocythemia-resolved -Most likely reactive Anemia -Multifactorial including recent surgery, dilutional. Not suspecting acute bleeding at this time -CBC daily -May plan for some IV iron after pt has had a few days of healing time -Transfuse for Hgb <7
[2023-06-20] MEDS: POTASSIUM CHLORIDE ER 20 MEQ TAB.ER PO SCH ×3 (17:37→21:50)
[2023-06-20] MEDS ORDERED: FUROSEMIDE 20 MG TAB PO STA (22:58)
[2023-06-21] MEDS: PIPERACILLIN-TAZOBACTAM 3.375 GM in SODIUM CHLORIDE 0.9% 100 ML IVPB SCH ×3 (01:46→18:10)
[2023-06-21] MEDS: POTASSIUM CHLORIDE ER 20 MEQ TAB.ER PO SCH ×9 (01:47→19:44)
[2023-06-21] MEDS: ROPIVACAINE 250 MG, HYDROMORPHONE (PF) 5 MG in SODIUM CHLORIDE 0.9% 200 ML EPIDURAL PRN (06:00)
--- NOTE | 2023-06-21 06:10 | P.PN ---
Progress Note - Text Progress Note Date: 06/21/23 Anesthesia Postop day #3 Status post MediPort insertion diverting colostomy with epidural day #3 Patient seen and examined. Doing well without complaint. VAS 2 out of 10. No nausea vomiting or pruritus. Ropivacaine 0.1% with Dilaudid 20 mcg/mL at 7 mL an hour. +Ambulation Objective: Vital signs reviewed Lungs: Good chest excursion Abdomen: Appears nondistended Other: Epidural Site Intact without induration. Dressing intact Neuro: No apparent motor block. Sensory within normal limits. Assessment: Status post MediPort insertion with diverting colostomy postop day #3 Plan: Continue current care with your medical management. Anticipate dis continued catheter today. Platelets are currently adequate. Patient's on heparin subcu for DVT prophylaxis this will be need to be held for 6 hours prior to epidural pull.
[2023-06-21 08:37] LABS: Magnesium 1.5 mg/dL (1.5-2.4)
[2023-06-21 08:48] LABS: BUN/Creat Ratio 12.12 Ratio (12.00-20.00); Blood Urea Nitrogen 9.7 mg/dL (9.0-27.0); Glucose 105 mg/dL (70-110)
[2023-06-21 08:49] LABS: Calcium 7.5 mg/dL (8.7-10.3); Carbon Dioxide 24.4 mmol/L (21.6-31.8); Chloride 104 mmol/L (96-109); Potassium 2.6 mmol/L (3.5-5.5); Sodium 136 mmol/L (135-145)
[2023-06-21] MEDS: 0.9% NACL WITH KCL 40 MEQ/L 1,000 ML IV SCH (09:05)
[2023-06-21] MEDS: PANTOPRAZOLE 40 MG/10 ML VIAL IVP SCH (09:07)
[2023-06-21] MEDS: HEPARIN SODIUM,PORCINE 5,000 UNIT/ML 1 ML VIAL SQ SCH ×2 (09:07→20:18)
--- NOTE | 2023-06-21 10:50 | P.PN ---
Subjective Progress Note Date: 06/21/23 Principal diagnosis: Colonic mass Patient has no complaints at this time. The creatinine level of the SALTY fluid is 0.9; renal ultrasound shows no hydronephrosis Objective - Vital Signs Vital signs: Vital Signs Temp 98.1 F 06/21/23 01:14 Pulse 88 06/21/23 01:14 Resp 16 06/21/23 01:14 BP 118/67 06/21/23 01:14 Pulse Ox 96 06/21/23 01:14 FiO2 Intake & Output 06/20/23 06/21/23 06/21/23 18:59 06:59 18:59 Intake Total 250 Output Total 2320 3942 Balance -4337 -1049 Intake: Intake, IV Titration 250 Amount Ropivacaine 250 mg 250 Hydromorphone (Pf) 5 mg In Sodium Chloride 0.9% 200 ml @ Per Protocol EPIDURAL .Q0M PRN Rx#: [id number] Output: Drainage 270 200 Right Lower Abdomen 270 200 Urine 400 5400 Stool 1650 1300 Other: Voiding Method Indwelling Catheter Indwelling Catheter - Constitutional General appearance: Present: average body habitus, no acute distress - Psychiatric Psychiatric: Present: A&O x's 3 - Labs CBC & Chem 7: 06/20/23 05:55 06/21/23 04:53 Labs: Abnormal Lab Results - Last 24 Hours (Table) 06/20/23 06/20/23 06/21/23 Range/Units 05:55 05:55 00:14 RBC 3.21 L (4.40-5.60) X 10*6/uL Hgb 9.4 L (13.0-17.0) g/dL Hct 30.9 L (39.6-50.0) % MCHC 30.4 L (32.0-37.0) g/dL RDW 17.0 H (11.5-14.5) % Immature Gran # 0.05 H (0.00-0.04) X 10*3/uL Neutrophils # 7.99 H (1.80-7.70) X 10*3/uL Lymphocytes # 0.53 L (0.90-5.00) X 10*3/uL Sodium 134 L (135-145) mmol/L Potassium 3.0 L 2.6 L* (3.5-5.5) mmol/L Glucose 115 H (70-110) mg/dL Calcium 7.9 L (8.7-10.3) mg/dL Microbiology - Last 24 Hours (Table) 06/18/23 16:45 Gram Stain - Preliminary Other - Other Wound Culture - Preliminary Gram Neg Bacilli 06/18/23 17:44 Gram Stain - Preliminary [place] Body Fluid Culture - Preliminary Assessment and Plan Assessment: The CT scan obtained at the time of admission showed no evidence of hydronephrosis. The fact that the creatinine level of the SALTY fluid is that of serum rules out a ureteral leak. The absence of hydronephrosis on ultrasound rules out ureteral ligation. (1) Colonic mass Current Visit: Yes Status: Acute Priority: High Code(s): K63.89 - OTHER SPECIFIED DISEASES OF INTESTINE SNOMED Code(s): 901604594 Plan: I have reassured Mr. Perez that there is no evidence of ureteral injury. There was apparently difficulty encountered in placing his Ley catheter. From my standpoint, the catheter may be removed when no longer needed. Please notify me if he experiences voiding difficulty. He will follow up as needed.
[2023-06-21 11:26] LABS: Basophils # (A) 0.02 X 10*3/uL (0.00-0.10); Basophils % (A) 0.3 %; Eosinophils % (A) 2.7 %; HGB 8.4 g/dL (13.0-17.0); Lymphocytes # (A) 1.35 X 10*3/uL (0.90-5.00); Lymphocytes % (A) 18.5 %; MCH 29.5 pg (27.0-32.0); MCHC 32.3 g/dL (32.0-37.0); MCV 91.2 FL (80.0-97.0); Mean Platelet Volume 10.8 FL (9.5-12.2); Monocytes # (A) 0.62 X 10*3/uL (0.20-1.00); Monocytes % (A) 8.5 %; NRBC Per 100 WBC 0 X 10*3/uL (0.00-0.01); Neutrophils # (A) 5.04 X 10*3/uL (1.80-7.70); Platelet Count 302 X 10*3/uL (140-440); RBC 2.85 X 10*6/uL (4.40-5.60); RDW 16.8 % (11.5-14.5)
--- NOTE | 2023-06-21 12:46 | P.PN ---
Subjective 06/16/2023: Patient is here for small bowel obstruction due to a mass on CT. Dr. Armstrong splenic to the operating room for expiratory laparotomy on 06/18/2023. Currently he is on full liquids with a GoLYTELY prep. He denies any chest pains pressures breath. I really use much pain medication. He some abdominal distention. Staff report no issues at this time. Vital signs and labs remained stable. 06/17/2023: Patient is more distended today after doing his prep yesterday. Dr. Carley abad seen him in rounds this morning and an NG tube was placed. Prep was stopped. Surgery with Dr. Armstrong so planned for tomorrow for his small bowel obstruction with mass. He reports he had more pain that was controlled with Dilaudid. He is resting comfortably now. Remains afebrile, vital signs remain stable. We will let is 7-10.5. Electrolytes are essentially normal. Urine cultures positive for Escherichia coli with only ampicillin resistance. He continues on some Zoloft. Heparin subcutaneous for DVT prophylaxis, magnesium, Zofran, pantoprazole,and IV fluids, 06/21/2023: patient was seen by a bee today. He is a bit hypokalemic. He had some lower extremity edema and was given some Lasix to help with this. He has a fully catheter in place. His wound VAC in abdominal wound dressings are intact. He denies any chest pain, shortness of breath. Objective - Vital Signs Vital signs: Vital Signs Temp 97.8 F 06/21/23 11:30 Pulse 91 06/21/23 11:30 Resp 18 06/21/23 11:30 BP 126/77 06/21/23 11:30 Pulse Ox 95 06/21/23 11:30 FiO2 Intake & Output 06/20/23 06/21/23 06/21/23 18:59 06:59 18:59 Intake Total 250 Output Total 2204 4739 9551 Balance -5419 -7909 -3518 Intake: Intake, IV Titration 250 Amount Ropivacaine 250 mg 250 Hydromorphone (Pf) 5 mg In Sodium Chloride 0.9% 200 ml @ Per Protocol EPIDURAL .Q0M PRN Rx#: [id number] Output: Drainage 270 200 100 Right Lower Abdomen 270 200 100 Urine 400 5400 3000 Stool 1650 1300 375 Other: Voiding Method Indwelling Catheter Indwelling Catheter - Exam General: Alert and oriented 3, sitting up in chair, no acute distress. Neck: Supple, no JVD Cardiac: regular in rate and rhythm. No S3. No S4. No clicks, rubs. No murmur. Lungs: Unlabored, equal air entry, minimal right-sided basilar crackles. Abdomen:Loft, minimally, distended. Dressing is intact with wound VAC midline. SALTY drain in place Extremes: Trace pedal edema no cyanosis no claudication normal SCD pumps in place Skin: Warm and dry, no rashes noted Neurologic: CN II - XII grossly intact. No focal deficits - Labs CBC & Chem 7: 06/21/23 04:53 06/21/23 04:53 Labs: Abnormal Lab Results - Last 24 Hours (Table) 06/21/23 06/21/23 06/21/23 Range/Units 00:14 04:53 04:53 RBC 2.85 L (4.40-5.60) X 10*6/uL Hgb 8.4 L (13.0-17.0) g/dL Hct 26.0 L (39.6-50.0) % RDW 16.8 H (11.5-14.5) % Immature Gran # 0.07 H (0.00-0.04) X 10*3/uL Potassium 2.6 L* 2.6 A* (3.5-5.1) mmol/L Calcium 7.5 L (8.7-10.3) mg/dL Microbiology - Last 24 Hours (Table) 06/18/23 17:44 Gram Stain - Preliminary [facility] Body Fluid Culture - Preliminary 06/18/23 16:45 Gram Stain - Final Other - Other Wound Culture - Final Pseudomonas aeruginosa Alpha Hemolytic Streptococcus Assessment and Plan (1) Unintentional weight loss Current Visit: Yes Status: Acute Code(s): R63.4 - ABNORMAL WEIGHT LOSS SNOMED Code(s): 102240846 (2) Dehydration Current Visit: Yes Status: Acute Code(s): E86.0 - DEHYDRATION SNOMED Code(s): 80239741 (3) Acute renal failure Current Visit: Yes Status: Acute Code(s): N17.9 - ACUTE KIDNEY FAILURE, UNSPECIFIED SNOMED Code(s): 13609472 (4) Thrombocytosis Current Visit: Yes Status: Acute Code(s): D75.839 - THROMBOCYTOSIS, UNSPECIFIED SNOMED Code(s): 9256331 (5) Colonic mass Current Visit: Yes Status: Acute Priority: High Code(s): K63.89 - OTHER SPECIFIED DISEASES OF INTESTINE SNOMED Code(s): 578943465 (6) Gastrointestinal neoplasm Current Visit: Yes Status: Acute Code(s): D49.0 - NEOPLASM OF UNSPECIFIED BEHAVIOR OF DIGESTIVE SYSTEM SNOMED Code(s): 331498317 (7) Small bowel obstruction Current Visit: Yes Status: Acute Priority: High Code(s): K56.609 - UNSP INTESTNL OBST, UNSP TO PARTIAL VERSUS COMPLETE OBST SNOMED Code(s): 308997781 (8) Normocytic anemia Current Visit: Yes Status: Acute Code(s): D64.9 - ANEMIA, UNSPECIFIED SNOMED Code(s): 498090666 (9) Hypokalemia Current Visit: Yes Status: Acute Code(s): E87.6 - HYPOKALEMIA SNOMED Code(s): 36032152 (10) Anemia Current Visit: Yes Status: Acute Code(s): D64.9 - ANEMIA, UNSPECIFIED SNOMED Code(s): 650382378 (11) S/P exploratory laparotomy Current Visit: Yes Status: Acute Code(s): Z98.890 - OTHER SPECIFIED POSTPROCEDURAL STATES SNOMED Code(s): 030832307 Plan: anemia now 8.4, potassium is 2.6, recheck labs in am, KCL replacement protocol, zosyn continue for abx coverage,cultures reviewed contnue ambualation and monitoring We'll reevaluate him in next 24 hours.
[2023-06-21] MEDS: MAGNESIUM SULFATE-D5W PMX 1 GM in DEXTROSE/WATER 1 100ML.BAG IVPB SCH ×2 (12:53→14:52)
[2023-06-21] MEDS ORDERED: POTASSIUM CHLORIDE ER 20 MEQ TAB.ER PO ONE (13:00)
--- NOTE | 2023-06-21 14:06 | P.PN ---
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 And status post MediPort placement. Patient's pain is controlled. Ostomy is functioning. He had a lot of output through his ostomy. And SALTY drain with 300 mL serosanguineous output. Patient did receive a dose of Lasix per medicine service yesterday. Afebrile. Tachycardia improved. WBC 7.3 Hgb 8.4 platelets 302 sodium is 136 potassium is 2.6 creatinine 0.8 magnesium 1.5 PHYSICAL EXAM: VITAL SIGNS: Reviewed GENERAL: Well-developed in no acute distress. HEENT: No sclera icterus. Extraocular movements grossly intact. Moist buccal mucosa. Head is atraumatic, normocephalic. Hears conversational speech. No nasal drainage. NECK: Supple without lymphadenopathy. CHEST: Non-labored respirations and equal bilateral excursions. CARDIOVASCULAR: Palpable 2+ radial pulses. ABDOMEN: Less distended. Mild tenderness around incision site. Prevana wound vac at midline. Stoma is beefy red and edematous. Liquidy Stool in colostomy bag with air. MUSCULOSKELETAL: No clubbing or cyanosis. NEUROLOGIC: No focal or lateralizing signs. Cranial nerves II through XII grossly intact. PSYCH: Appropriate affect. Alert and oriented to person, place and time. SKIN: Well perfused. Good skin turgor. ASSESSMENT: 1. 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 Multiple liver lesions 4. Multiple liver cysts 5. Small bowel obstruction due to large bowel obstruction 6. Abdominal compartment syndrome 7. Hypokalemia and hypomagnesemia PLAN: -Discontinue epidural and Ley catheter -Continue to potassium -Magnesium supplement ordered for low magnesium -Consult infectious disease for discharge antibiotics -Encourage patient to increase activity level -Encourage patient to use incentive spirometer -Continue low fiber diet -Anticipate discharge possibly tomorrow -Recommend E potassium-rich foods for Lopid -GI prophylaxis Protonix and DVT prophylaxis subcu heparin Physician Platform Power Technician note has been reviewed by physician. Signing provider agrees with the documented findings, assessment, and plan of care. Objective - Vital Signs Vital signs: Vital Signs Temp 97.8 F 06/21/23 11:30 Pulse 91 06/21/23 11:30 Resp 18 06/21/23 11:30 BP 126/77 06/21/23 11:30 Pulse Ox 95 06/21/23 11:30 FiO2 Intake & Output 06/20/23 06/21/23 06/21/23 18:59 06:59 18:59 Intake Total 250 54.367 Output Total 2320 6900 3650 Balance -0478 -4334 -3595.633 Weight 73.936 kg Intake: Intake, IV Titration 250 54.367 Amount Ropivacaine 250 mg 250 54.367 Hydromorphone (Pf) 5 mg In Sodium Chloride 0.9% 200 ml @ Per Protocol EPIDURAL .Q0M PRN Rx#: [id number] Output: Drainage 270 200 100 Right Lower Abdomen 270 200 100 Urine 400 5400 3000 Stool 1650 1300 550 Other: Voiding Method Indwelling Catheter Indwelling Catheter Indwelling Catheter - Labs CBC & Chem 7: 06/21/23 04:53 06/21/23 04:53 Labs: Abnormal Lab Results - Last 24 Hours (Table) 06/21/23 06/21/23 06/21/23 Range/Units 00:14 04:53 04:53 RBC 2.85 L (4.40-5.60) X 10*6/uL Hgb 8.4 L (13.0-17.0) g/dL Hct 26.0 L (39.6-50.0) % RDW 16.8 H (11.5-14.5) % Immature Gran # 0.07 H (0.00-0.04) X 10*3/uL Potassium 2.6 L* 2.6 A* (3.5-5.1) mmol/L Calcium 7.5 L (8.7-10.3) mg/dL Microbiology - Last 24 Hours (Table) 06/18/23 17:44 Gram Stain - Preliminary [facility] Body Fluid Culture - Preliminary 06/18/23 16:45 Gram Stain - Final Other - Other Wound Culture - Final Pseudomonas aeruginosa Alpha Hemolytic Streptococcus
--- NOTE | 2023-06-21 16:20 | P.PN ---
Subjective Progress Note Date: 06/21/23 Principal diagnosis: Sigmoid colon mass, liver lesions In f/u today pt has no c/o, he is feeling overall well Objective - Vital Signs Vital signs: Vital Signs Temp 97.8 F 06/21/23 11:30 Pulse 91 06/21/23 11:30 Resp 18 06/21/23 11:30 BP 126/77 06/21/23 11:30 Pulse Ox 95 06/21/23 11:30 FiO2 Intake & Output 06/20/23 06/21/23 06/21/23 18:59 06:59 18:59 Intake Total 250 54.367 Output Total 2320 6420 9009 Balance -7527 -8301 -4705.633 Weight 73.936 kg Intake: Intake, IV Titration 250 54.367 Amount Ropivacaine 250 mg 250 54.367 Hydromorphone (Pf) 5 mg In Sodium Chloride 0.9% 200 ml @ Per Protocol EPIDURAL .Q0M PRN Rx#: [id number] Output: Drainage 270 200 210 Right Lower Abdomen 270 200 210 Urine 400 5400 3700 Stool 1650 1300 850 Other: Voiding Method Indwelling Catheter Indwelling Catheter Indwelling Catheter - Constitutional General appearance: Present: average body habitus, cooperative, no acute distress - EENT Eyes: Present: anicteric sclerae, EOMI ENT: Present: hearing grossly normal - Respiratory Details: resp even and unlabored - Peripheral edema leg Peripheral Edema: bilateral: None - Gastrointestinal Gastrointestinal Comment(s): midline wound vac, RLQ drain, Lt abd ostomy General gastrointestinal: Present: soft - Neurologic Neurologic: Present: CNII-XII intact - Musculoskeletal Musculoskeletal: Present: generalized weakness - Psychiatric Psychiatric: Present: A&O x's 3, appropriate affect, intact judgment & insight - Labs CBC & Chem 7: 06/21/23 04:53 06/21/23 15:08 Labs: Abnormal Lab Results - Last 24 Hours (Table) 06/21/23 06/21/23 06/21/23 Range/Units 00:14 04:53 04:53 RBC 2.85 L (4.40-5.60) X 10*6/uL Hgb 8.4 L (13.0-17.0) g/dL Hct 26.0 L (39.6-50.0) % RDW 16.8 H (11.5-14.5) % Immature Gran # 0.07 H (0.00-0.04) X 10*3/uL Potassium 2.6 L* 2.6 A* (3.5-5.1) mmol/L Calcium 7.5 L (8.7-10.3) mg/dL 06/21/23 Range/Units 15:08 RBC (4.40-5.60) X 10*6/uL Hgb (13.0-17.0) g/dL Hct (39.6-50.0) % RDW (11.5-14.5) % Immature Gran # (0.00-0.04) X 10*3/uL Potassium 2.9 L (3.5-5.1) mmol/L Calcium (8.7-10.3) mg/dL Microbiology - Last 24 Hours (Table) 06/18/23 17:44 Gram Stain - Preliminary [facility] Body Fluid Culture - Preliminary 06/18/23 16:45 Gram Stain - Final Other - Other Wound Culture - Final Pseudomonas aeruginosa Alpha Hemolytic Streptococcus Assessment and Plan (1) Small bowel obstruction Current Visit: Yes Status: Acute Priority: High Code(s): K56.609 - UNSP INTESTNL OBST, UNSP TO PARTIAL VERSUS COMPLETE OBST SNOMED Code(s): 110598588 Plan: SBO -S/P Surgical intervention. Pending path. -F/U in 4-5 weeks with Medical Onc for final recommendations-appt in DC plan -Molecular testing orders sent. Specimen will be requested once path returned -No treatment would start until pt is healed from surgery. Pt encouraged to eat, drink and work with PT/OT to get stronger and to help with healing. He is motivated and wanting to get stronger Thrombocythemia-resolved Anemia -Multifactorial including recent surgery, dilutional. Not suspecting acute bleeding at this time -CBC daily -May plan for some IV iron after pt has had a few days of healing time -Transfuse for Hgb <7
[2023-06-21] MEDS ORDERED: Potassium Replacement Protocol 1 EACH MISC MISCELLANE PRN (16:31)
[2023-06-21] MEDS: MAGNESIUM OXIDE 400 MG TAB PO SCH (20:18)
[2023-06-21] MEDS: HYDROmorphone 1 MG/ML 1 ML SYRINGE IVP PRN (20:22)
[2023-06-21 21:37] VITALS: RESP 16
[2023-06-22] MEDS: HYDROmorphone 1 MG/ML 1 ML SYRINGE IVP PRN ×2 (01:05→05:59)
[2023-06-22] MEDS: PIPERACILLIN-TAZOBACTAM 3.375 GM in SODIUM CHLORIDE 0.9% 100 ML IVPB SCH ×2 (02:26→11:22)
[2023-06-22] MEDS ORDERED: Potassium Replacement Protocol 1 EACH MISC MISCELLANE PRN (02:42)
[2023-06-22] MEDS: POTASSIUM CHLORIDE ER 20 MEQ TAB.ER PO SCH ×2 (02:54→04:04)
[2023-06-22] MEDS: 0.9% NACL WITH KCL 40 MEQ/L 1,000 ML IV SCH ×2 (04:05→11:21)
[2023-06-22 07:31] LABS: HCT 29.1 % (39.0-53.0); MCH 30.4 pg (25.0-35.0); MCHC 32.5 g/dL (31.0-37.0); MCV 93.7 fL (80.0-100.0); Mean Platelet Volume 8.8; Platelet Count 395 k/uL (150-450); RDW 15.8 % (11.5-15.5); WBC 8.5 k/uL (3.8-10.6)
[2023-06-22 07:35] LABS: HGB 9.4 gm/dL (13.0-17.5)
[2023-06-22 07:36] LABS: African American GFR (CKD) >90 (>60 ml/min/1.73 sqM); Anion Gap 5 mmol/L; Blood Urea Nitrogen 5 mg/dL (9-20); Calcium 7.6 mg/dL (8.4-10.2); Carbon Dioxide 25 mmol/L (22-30); Chloride 107 mmol/L (98-107); Glucose 99 mg/dL (74-99); Magnesium 1.9 mg/dL (1.6-2.3); Non-African American GFR(CKD) >90 (>60 ml/min/1.73 sqM); Sodium 137 mmol/L (137-145)
[2023-06-22] MEDS ORDERED: POTASSIUM CHLORIDE ER 20 MEQ TAB.ER PO SCH (08:00)
--- NOTE | 2023-06-22 08:11 | P.CONS ---
History of Present Illness - Reason for Consult Consult date: 06/21/23 Intra-abdominal abscess/antibiotic recommendation Requesting physician: Inge Pittman - Chief Complaint Abdominal pain x few days - History of Present Illness Patient is a 62-year-old male with a past medical history significant for hyperlipidemia presenting to the hospital about 8 days ago for evaluation of left-sided abdominal pain apparently the patient's symptom has been going on since April 2023 has been diagnosed with the colitis and then diverticulitis and has been on antibiotics patient apparently did have a CAT scan done that was suspicious for diverticulitis for the patient was sent to the ER patient did have a CT abdominal pelvis on 06/13/2023 small and large bowel obstruction felt to be related to neoplasm at the level of proximal sigmoid colon direct visualization is recommended multiple lesions throughout the liver may reflect cyst although metastatic disease difficult to exclude patient was evaluated by general surgery and the patient was taken to the OR on 06/18/2023 and the patient is s/p laparotomy small bowel decompression and decompressive colotomy sigmoid colectomy involving large proximal sigmoid tumor takedown of the col ocutaneous fistula and drainage of abdominal abscess culture subsequently came back positive with Pseudomonas aeruginosa and strep patient has been on Zosyn since 06/18/2023 infectious disease was consulted today for further management of antibiotic therapy, on today's evaluation that is 06/21/2023 patient did have a low-grade fever of 99.9 F yesterday morning however the patient is afebrile since then patient is breathing comfortably on room air without need for supplemental oxygen patient denies having any headache or URI symptoms no chest pain shortness of breath or cough no nausea no vomiting abdominal pain has decreased in intensity did have output in his colostomy abdominal incision c overed with prevana postop wound VAC, patient did have a white count of 7.30 creatinine is 0.8 Review of Systems Positive point and negatives has been mentioned in the HPI, complete review of systems was performed and all other systems are negative Past Medical History Past Medical History: GI Bleed, Hyperlipidemia History of Any Multi-Drug Resistant Organisms: None Reported Past Surgical History: Hernia Repair Additional Past Surgical History / Comment(s): double hernia 1968; non desended left testicle; colonscopy Past Anesthesia/Blood Transfusion Reactions: No Reported Reaction Past Psychological History: No Psychological Hx Reported Smoking Status: Never smoker Past Alcohol Use History: Rare Past Drug Use History: None Reported - Past Family History Father Family Medical History: Cancer (lung cancer, smoker) Additional Family Medical History / Comment(s): Grandfather with colon cancer Medications and Allergies Home Medications Medication Instructions Recorded Confirmed Type Atorvastatin [Lipitor] 40 mg PO PC-SUPPER 06/13/23 06/13/23 History Cetirizine HCl [Zyrtec] 10 mg PO DAILY 06/13/23 06/13/23 History Acetaminophen Tab [Tylenol Tab] 1,000 mg PO Q6HR PRN #30 tablet 06/22/23 Rx Ciprofloxacin HCl [Cipro] 500 mg PO Q12HR 10 Days #20 tab 06/22/23 Rx Cyclobenzaprine [Flexeril] 10 mg PO TID #30 tab 06/22/23 Rx Ibuprofen [Motrin] 600 mg PO Q8HR PRN #30 tab 06/22/23 Rx Potassium Chloride [Potassium 20 meq PO RT-BID #20 tab 06/22/23 Rx Chloride ER (K-Dur GEQ)] metroNIDAZOLE [Flagyl] 500 mg PO TID 10 Days #30 tab 06/22/23 Rx Allergies Allergy/AdvReac Type Severity Reaction Status Date / Time No Known Allergies Allergy Verified 06/18/23 11:48 Physical Exam Vitals: Vital Signs Temp Pulse Resp BP Pulse Ox 06/21/23 07:17 98.1 F 87 20 107/66 95 06/21/23 01:14 98.1 F 88 16 118/67 96 06/20/23 16:59 96 111/62 06/20/23 14:34 98.8 F 106 H 17 88/50 92 L Intake and Output 06/20/23 06/21/23 06/21/23 22:59 06:59 14:59 Intake Total 250 Output Total 1510 6400 2540 Balance -1510 -6250 -2540 Intake: Intake, IV Titration 250 Amount Ropivacaine 250 mg 250 Hydromorphone (Pf) 5 mg In Sodium Chloride 0.9% 200 ml @ Per Protocol EPIDURAL .Q0M PRN Rx#: [id number] Output: Drainage 60 200 40 Right Lower Abdomen 60 200 40 Urine 400 5400 2300 Stool 1050 800 200 Other: Voiding Method Indwelling Catheter GENERAL DESCRIPTION: Middle-aged male lying in bed, no distress. No tachypnea or accessory muscle of respiration use. HEENT: Shows Pallor , no scleral icterus. Oral mucous membrane is dry. No pharyngeal erythema or thrush NECK: Trachea central, no thyromegaly. LUNGS: Unlabored breathing. Clear to auscultation anteriorly. No wheeze or crackle. HEART: S1, S2, regular rate and rhythm. No loud murmur ABDOMEN: Soft, no tenderness EXTREMITIES: No edema of feet. SKIN: No rash, no masses palpable. NEUROLOGICAL: The patient is awake, alert, oriented x3, mood and affect normal. Results CBC & Chem 7: 06/22/23 06:22 06/22/23 06:22 Labs: Abnormal Lab Results - Last 24 Hours (Table) 06/21/23 06/21/23 06/21/23 Range/Units 00:14 04:53 04:53 RBC 2.85 L (4.40-5.60) X 10*6/uL Hgb 8.4 L (13.0-17.0) g/dL Hct 26.0 L (39.6-50.0) % RDW 16.8 H (11.5-14.5) % Immature Gran # 0.07 H (0.00-0.04) X 10*3/uL Potassium 2.6 L* 2.6 A* (3.5-5.1) mmol/L Calcium 7.5 L (8.7-10.3) mg/dL Microbiology - Last 24 Hours (Table) 06/18/23 17:44 Gram Stain - Preliminary [facility] Body Fluid Culture - Preliminary 06/18/23 16:45 Gram Stain - Final Other - Other Wound Culture - Final Pseudomonas aeruginosa Alpha Hemolytic Streptococcus Assessment and Plan (1) Intra-abdominal abscess Current Visit: Yes Status: Acute Code(s): K65.1 - PERITONEAL ABSCESS SNOMED Code(s): 73851988 (2) Pseudomonas (aeruginosa) (mallei) (pseudomallei) as the cause of diseases classified elsewhere Current Visit: Yes Status: Acute Code(s): B96.5 - PSEUDOMONAS (MALLEI) CAUSING DISEASES [facility]SD [facility] SNOMED Code(s): 89686998 Plan: 1patient is a 62-year-old male admitted to hospital about 8 days ago with abdominal pain has been diagnosed with possible sigmoid tumor and also intra-abdominal abscess s/p drainage culture positive for Pseudomonas aeruginosa and strep 2-we will continue patient on Zosyn 3.375 g 8 hours while inpatient however keeping in mind overall clinical improvement and complete drainage of the abscess as per discussion with the surgical team we will recommend oral Cipro and Flagyl x 10 days on discharge Family at the bedside multiple question concern also relayed midterm We will follow on clinical condition and cultures to further adjust medication if needed Thank you for this consultation we will follow the patient along with you Dictation was produced using [employer] dictation software. please excuse any grammatical, word or spelling errors. Time with Patient: Greater than 30
[2023-06-22] MEDS: HEPARIN SODIUM,PORCINE 5,000 UNIT/ML 1 ML VIAL SQ SCH (09:07)
[2023-06-22] MEDS: MAGNESIUM OXIDE 400 MG TAB PO SCH (09:08)
[2023-06-22] MEDS: PANTOPRAZOLE 40 MG/10 ML VIAL IVP SCH (09:08)
[2023-06-22] MEDS ORDERED: KETOROLAC 15 MG/ML 1 ML VIAL IVP SCH (12:00)
[2023-06-22] MEDS ORDERED: ACETAMINOPHEN TAB 500 MG TAB PO SCH (12:00)
--- NOTE | 2023-06-22 12:06 | P.PN ---
Subjective 06/16/2023: Patient is here for small bowel obstruction due to a mass on CT. Dr. Armstrong splenic to the operating room for expiratory laparotomy on 06/18/2023. Currently he is on full liquids with a GoLYTELY prep. He denies any chest pains pressures breath. I really use much pain medication. He some abdominal distention. Staff report no issues at this time. Vital signs and labs remained stable. 06/17/2023: Patient is more distended today after doing his prep yesterday. Dr. Carley abad seen him in rounds this morning and an NG tube was placed. Prep was stopped. Surgery with Dr. Armstrong so planned for tomorrow for his small bowel obstruction with mass. He reports he had more pain that was controlled with Dilaudid. He is resting comfortably now. Remains afebrile, vital signs remain stable. We will let is 7-10.5. Electrolytes are essentially normal. Urine cultures positive for Escherichia coli with only ampicillin resistance. He continues on some Zoloft. Heparin subcutaneous for DVT prophylaxis, magnesium, Zofran, pantoprazole,and IV fluids, 06/21/2023: patient was seen by a bee today. He is a bit hypokalemic. He had some lower extremity edema and was given some Lasix to help with this. He has a fully catheter in place. His wound VAC in abdominal wound dressings are intact. He denies any chest pain, shortness of breath. 06/22/2023: Patient is doing well this morning. Wound VAC is in place to his a omen. Surgery will be cleared for discharge soon. He has his colostomy bag to the left. Staff reports quite a bit of drainage. His potassium is now 4.0. Objective - Vital Signs Vital signs: Vital Signs Temp 98.4 F 06/22/23 07:09 Pulse 92 06/22/23 07:09 Resp 16 06/22/23 07:09 BP 143/82 06/22/23 07:09 Pulse Ox 96 06/22/23 07:09 FiO2 Intake & Output 06/21/23 06/22/23 06/22/23 18:59 06:59 18:59 Intake Total 54.367 100 Output Total 5230 4090 2140 Balance -5175.633 -8180 -2142 Weight 73.936 kg Intake: Intake, IV Titration 54.367 100 Amount Piperacillin-Tazobactam 3 100 .375 gm In Sodium Chloride 0.9% 100 ml @ 25 mls/hr IVPB Q8H [facility] Rx#: [id number] Ropivacaine 250 mg 54.367 Hydromorphone (Pf) 5 mg In Sodium Chloride 0.9% 200 ml @ Per Protocol EPIDURAL .Q0M PRN Rx#: [id number] Output: Drainage 230 190 40 Right Lower Abdomen 230 190 40 Urine 4050 2750 1500 Stool 950 1150 600 Other: Voiding Method Indwelling Catheter Indwelling Catheter Indwelling Catheter # Voids 2 - Exam General: Alert and oriented 3, sitting up in chair, no acute distress. Neck: Supple, no JVD Cardiac: regular in rate and rhythm. No S3. No S4. No clicks, rubs. No murmur. Lungs: Unlabored, equal air entry, minimal right-sided basilar crackles. Abdomen:Loft, minimally, distended. Dressing is intact with wound VAC midline. SALTY drain in place Extremes: Trace pedal edema no cyanosis no claudication normal SCD pumps in calli ce Skin: Warm and dry, no rashes noted Neurologic: CN II - XII grossly intact. No focal deficits - Labs CBC & Chem 7: 06/22/23 06:22 06/22/23 06:22 Labs: Abnormal Lab Results - Last 24 Hours (Table) 06/21/23 06/21/23 06/22/23 Range/Units 15:08 20:23 06:22 RBC 3.10 L (4.30-5.90) m/uL Hgb 9.4 L D (13.0-17.5) gm/dL Hct 29.1 L (39.0-53.0) % RDW 15.8 H (11.5-15.5) % Potassium 2.9 L 3.2 L (3.5-5.1) mmol/L BUN (9-20) mg/dL Calcium (8.4-10.2) mg/dL 06/22/23 Range/Units 06:22 RBC (4.30-5.90) m/uL Hgb (13.0-17.5) gm/dL Hct (39.0-53.0) % RDW (11.5-15.5) % Potassium (3.5-5.1) mmol/L BUN 5 L (9-20) mg/dL Calcium 7.6 L (8.4-10.2) mg/dL Microbiology - Last 24 Hours (Table) 06/18/23 16:45 Anaerobic Culture - Final Other - Other Anaerobic Gm Negative Bacilli 06/18/23 17:44 Gram Stain - Preliminary [facility] Body Fluid Culture - Preliminary 06/18/23 16:45 Gram Stain - Final Other - Other Wound Culture - Final Pseudomonas aeruginosa Alpha Hemolytic Streptococcus Assessment and Plan (1) Unintentional weight loss Current Visit: Yes Status: Acute Code(s): R63.4 - ABNORMAL WEIGHT LOSS SNOMED Code(s): 711252652 (2) Dehydration Current Visit: Yes Status: Acute Code(s): E86.0 - DEHYDRATION SNOMED Code(s): 44843562 (3) Acute renal failure Current Visit: Yes Status: Acute Code(s): N17.9 - ACUTE KIDNEY FAILURE, U NSPECIFIED SNOMED Code(s): 29925702 (4) Thrombocytosis Current Visit: Yes Status: Acute Code(s): D75.839 - THROMBOCYTOSIS, UNSPECIFIED SNOMED Code(s): 9756522 (5) Colonic mass Current Visit: Yes Status: Acute Priority: High Code(s): K63.89 - OTHER SPECIFIED DISEASES OF INTESTINE SNOMED Code(s): 165537988 (6) Gastrointestinal neoplasm Current Visit: Yes Status: Acute Code(s): D49.0 - NEOPLASM OF UNSPECIFIED BEHAVIOR OF DIGESTIVE SYSTEM SNOMED Code(s): 450857159 (7) Small bowel obstruction Current Visit: Yes Status: Acute Priority: High Code(s): K56.609 - UNSP INTESTNL OBST, UNSP TO PARTIAL VERSUS COMPLETE OBST SNOMED Code(s): 492781009 (8) Normocytic anemia Current Visit: Yes Status: Acute Code(s): D64.9 - ANEMIA, UNSPECIFIED SNOMED Code(s): 075811140 (9) Hypokalemia Current Visit: Yes Status: Acute Code(s): E87.6 - HYPOKALEMIA SNOMED Code(s): 59934438 (10) Anemia Current Visit: Yes Status: Acute Code(s): D64.9 - ANEMIA, UNSPECIFIED SNOMED Code(s): 705451516 (11) S/P exploratory laparotomy Current Visit: Yes Status: Acute Code(s): Z98.890 - OTHER SPECIFIED POSTPROCEDURAL STATES SNOMED Code(s): 943324352 Plan: He is medically cleared for discharge. Place an order for potassium chloride for him at this time. He has an appointment the office on June 28 of my partner. We'll have him recheck his potassium that time.
[2023-06-22 12:13] VITALS: BP 121/76; PULSE 94; TEMP 98.1
--- NOTE | 2023-06-22 12:45 | P.DS ---
Providers Date of admission: 06/13/23 17:34 Expected date of discharge: 06/22/23 Attending physician: Gabby Armstrong Consults: 06/13/23 17:32 Consult Physician Urgent Consulting Provider: Diego Swartz Consult Reason/Comments: Large bowel neoplasm Do you want consulting provider notified?: Yes Consult Physician Urgent Consulting Provider: Gabby Armstrong Consult Reason/Comments: Small bowel obstruction Do you want consulting provider notified?: Yes 06/19/23 08:58 Consult Physician Routine Consulting Provider: Tee Jacob Consult Reason/Comments: urethral stricture, possible ureter injury Do you want consulting provider notified?: Yes 06/21/23 10:04 Consult Physician Routine Consulting Provider: Judy Harmon Consult Reason/Comments: antibiotic management Do you want consulting provider notified?: Yes Primary care physician: [facility] Course: Discharge diagnosis 1. 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 Multiple liver lesions 4. Multiple liver cysts 5. Small bowel obstruction due to large bowel obstruction 6. Abdominal compartment syndrome 7. Hypokalemia and hypomagnesemia improved Hospital course This is a 62-year-old male who presented with abdominal distention, left-sided abdominal pain with weight loss since over. Patient's computed tomography scan reported small and large bowel obstruction felt to be related to neoplasm at the level of the proximal sigmoid colon. Direct visualization is recommended. Multiple hypoattenuating lesions throughout the liver may reflect cysts although metastatic disease is difficult to exclude. He is status post exploratory laparotomy and small bowel decompression and decompressive colotomy, sigmoid colectomy involving the large proximal sigmoid tumor, takedown of colocutaneous fistula with drainage of abdominal wall abscess, descending colostomy with defunctionalized rectum, Nicholas procedure, open liver biopsy and MediPort placement. Patient's pain is controlled. He is tolerating diet. Ostomy is functioning. He is urinating without difficulty. Afebrile. He has been up and ambulating. He has been cleared by all consultants for discharge. Infectious disease recommended oral antibiotics, Cipro and Flagyl at discharge for 10 days. Patient is stable for discharge. Physician Landscape Gardener note has been reviewed by physician. Signing provider agrees with the documented findings, assessment, and plan of care. Patient Condition at Discharge: Stable Plan - Discharge Summary Discharge Rx Participant: Yes New Discharge Prescriptions: New Ibuprofen [Motrin] 600 mg PO Q8HR PRN #30 tab PRN Reason: Pain Potassium Chloride [Potassium Chloride ER (K-Dur GEQ)] 20 meq PO RT-BID #20 tab Cyclobenzaprine [Flexeril] 10 mg PO TID #30 tab Acetaminophen Tab [Tylenol Tab] 1,000 mg PO Q6HR PRN #30 tablet PRN Reason: Pain Continue Cetirizine HCl [Zyrtec] 10 mg PO DAILY Atorvastatin [Lipitor] 40 mg PO PC-SUPPER Discharge Medication List Atorvastatin [Lipitor] 40 mg PO PC-SUPPER 06/13/23 [History] Cetirizine HCl [Zyrtec] 10 mg PO DAILY 06/13/23 [History] Acetaminophen Tab [Tylenol Tab] 1,000 mg PO Q6HR PRN #30 tablet 06/22/23 [Rx] Cyclobenzaprine [Flexeril] 10 mg PO TID #30 tab 06/22/23 [Rx] Ibuprofen [Motrin] 600 mg PO Q8HR PRN #30 tab 06/22/23 [Rx] Potassium Chloride [Potassium Chloride ER (K-Dur GEQ)] 20 meq PO RT-BID #20 tab 06/22/23 [Rx] Follow up Appointment(s)/Referral(s): Diego Swartz [STAFF PHYSICIAN] - 07/19/23 1:15 pm Demario Del Rosario Jr, DO [Primary Care Provider] - 1-2 days Gabby Armstrong MD [STAFF PHYSICIAN] - 06/26/23 9:00 am [facility], [NON-STAFF] - 1-2 Days ([facility] will call you to schedule your in home nursing visits. Please call them if you have questions. ) Patient Instructions/Handouts: Colostomy Care (DC), Diverticulitis Diet (DC), Bowel Obstruction (DC) Activity/Diet/Wound Care/Special Instructions: Wear abdominal binder for comfort. No lifting over 4 pounds in 4 weeks Jul 23October shower. No bath tub soaks for two weeks until Jul 06 See diverticulitis, low fiber, colectomy diet Use Tylenol and ibuprofen scheduled for the next 24-48 hours for best pain relief. Use ice along incisions for today to prevent swelling. Keep a log of SALTY drain output and bring with you to your follow-up appointment Milk/strip drains 2-3 times a day Discharge Disposition: HOME SELF-CARE
--- NOTE | 2023-06-22 16:26 | P.PN ---
Subjective Progress Note Date: 06/22/23 Principal diagnosis: Reason for follow-up with intra-abdominal abscess Pseudomonas Patient is a 62-year-old male with a past medical history significant for hyperlipidemia presenting to the hospital about 9 days ago for evaluation of left-sided abdominal pain, patient has been diagnosed with a possible sigmoid tumor and possible perforated diverticulitis with an abscess s/p surgery and drainage of the abscess culture grew Pseudomonas Streptococcus and anaerobes. On today's evaluation that is 06/22/2023, the patient denies having any fever or any chills, the patient is breathing comfortably patient abdominal pain is currently controlled and has decreased in intensity denies any nausea no vomiting no chest pain shortness of breath or cough. Patient did have white count of 8.5, creatinine 0.76 Objective - Vital Signs Vital signs: Vital Signs Temp 98.4 F 06/22/23 07:09 Pulse 92 06/22/23 07:09 Resp 16 06/22/23 07:09 BP 143/82 06/22/23 07:09 Pulse Ox 96 06/22/23 07:09 FiO2 Intake & Output 06/21/23 06/22/23 06/22/23 18:59 06:59 18:59 Intake Total 54.367 100 Output Total 5230 4090 1510 Balance -5175.633 -3990 -1510 Weight 73.936 kg Intake: Intake, IV Titration 54.367 100 Amount Piperacillin-Tazobactam 3 100 .375 gm In Sodium Chloride 0.9% 100 ml @ 25 mls/hr IVPB Q8H [facility] Rx#: [id number] Ropivacaine 250 mg 54.367 Hydromorphone (Pf) 5 mg In Sodium Chloride 0.9% 200 ml @ Per Protocol EPIDURAL .Q0M PRN Rx#: [id number] Output: Drainage 230 190 10 Right Lower Abdomen 230 190 10 Urine 4050 2750 1100 Stool 950 1150 400 Other: Voiding Method Indwelling Catheter Indwelling Catheter Indwelling Catheter # Voids 2 - Exam GENERAL DESCRIPTION: Middle-age male lying in bed in no distress RESPIRATORY SYSTEM: Unlabored breathing , decreased breath sounds at bases HEART: S1 S2 regular rate and rhythm , ABDOMEN: Soft , no tenderness EXTREMITIES: No edema feet - Labs CBC & Chem 7: 06/22/23 06:22 06/22/23 06:22 Labs: Abnormal Lab Results - Last 24 Hours (Table) 06/21/23 06/21/23 06/21/23 Range/Units 04:53 15:08 20:23 RBC 2.85 L (4.40-5.60) X 10*6/uL Hgb 8.4 L (13.0-17.0) g/dL Hct 26.0 L (39.6-50.0) % RDW 16.8 H (11.5-14.5) % Immature Gran # 0.07 H (0.00-0.04) X 10*3/uL Potassium 2.9 L 3.2 L (3.5-5.1) mmol/L BUN (9-20) mg/dL Calcium (8.4-10.2) mg/dL 06/22/23 06/22/23 Range/Units 06:22 06:22 RBC 3.10 L (4.40-5.60) X 10*6/uL Hgb 9.4 L D (13.0-17.0) g/dL Hct 29.1 L (39.6-50.0) % RDW 15.8 H (11.5-14.5) % Immature Gran # (0.00-0.04) X 10*3/uL Potassium (3.5-5.1) mmol/L BUN 5 L (9-20) mg/dL Calcium 7.6 L (8.4-10.2) mg/dL Microbiology - Last 24 Hours (Table) 06/18/23 17:44 Gram Stain - Preliminary [facility] Body Fluid Culture - Preliminary 06/18/23 16:45 Gram Stain - Final Other - Other Wound Culture - Final Pseudomonas aeruginosa Alpha Hemolytic Streptococcus Assessment and Plan (1) Intra-abdominal abscess Current Visit: Yes Status: Acute Code(s): K65.1 - PERITONEAL ABSCESS SNOMED Code(s): 18718493 (2) Pseudomonas (aeruginosa) (mallei) (pseudomallei) as the cause of diseases classified elsewhere Current Visit: Yes Status: Acute Code(s): B96.5 - PSEUDOMONAS (MALLEI) [facility]EAS[facility] Code(s): 16196384 Plan: 1patient is a 62-year-old male admitted to hospital about 8 days ago with abdominal pain has been diagnosed with possible sigmoid tumor and also intra-abdominal abscess s/p drainage culture positive for Pseudomonas aeruginosa and strep 2patient seen to have shows clinical improvement patient white count is normal and has been insisting on going home we will recommend a 10-day course of oral Cipro and Flagyl on discharge and close outpatient follow-up Dictation was produced using [employer] dictation software. please excuse any grammatical, word or spelling errors.
--- NOTE | 2023-06-25 18:27 | CDI ---
Documentation Clarification Form Date: 06/25/2023 06:11:56 PM From: Nadeen Kong Phone: Admit Date: 06/13/2023 05:34:00 PM Patient Name: Sushant Perez Visit Number: [id number] Discharge Date: 06/22/2023 04:10:00 PM ATTENTION: The Clinical Documentation Specialists (CDI) and [facility] Coding Staff appreciate your assistance in clarifying documentation. Please respond to the clarification below the line at the bottom and electronically sign. The CDI & [facility] Coding staff will review the response and follow-up if needed. Please note: Queries are made part of the Legal Health Record. If you have any questions, please contact the author of this message via ITS. Dr. Gabby Armstrong Anemia is documented per Progress Note 06/17. Additional specificity regarding the type(s) and acuity of anemia is requested. History/Risk Factors: 62yo M, SBO and LBOdue to sigmoidstenosis/tumor, peritoneal abscess, malnutrition, sigmoid diverticulitiswithabscess,colocutaneous fistula, multiple liverlesions, multipleliver cysts, abdominalcompartment syndrome, nontraumatic compartment syndrome of abdomen, hypokalemia, hypomagnesemia, UTI, CISCO Clinical indicators: Hemoglobin: 06/13 14.5 06/15 10.5 06/20 9.4 06/21 8.4 Hematocrit: 06/13 44.0 06/15 32.7 06/20 30.9 06/21 26.0 Treatment: Notsuspectingacute bleedingat this time. CBC daily. May plan for some IV iron after pt. has had a few days of healing time. Transfusefor Hgb <7. Please clarify the type(s) and acuity of anemia: [ ] Acute blood loss anemia [ ] Acute on chronic blood loss anemia [ ] Iron deficiency anemia [ ] Hemolytic anemia [ ] Anemia due to malignancy [ X ] Nutritional anemia [ ] Unable to determine [ ] Other, please specify (Template Last Revised: August 2020) [ X ] Nutritional anemia Including severe dehydration, dilutional anemia MTDD
--- NOTE | 2023-06-25 18:38 | CDI ---
Documentation Clarification Form Date: 06/25/2023 06:28:00 PM From: Nadeen Kong Phone: Admit Date: 06/13/2023 05:34:00 PM Patient Name: Sushant Perez Visit Number: [id number] Discharge Date: 06/22/2023 04:10:00 PM ATTENTION: The Clinical Documentation Specialists (CDI) and [facility] Coding Staff appreciate your assistance in clarifying documentation. Please respond to the clarification below the line at the bottom and electronically sign. The CDI & [facility] Coding staff will review the response and follow-up if needed. Please note: Queries are made part of the Legal Health Record. If you have any questions, please contact the author of this message via ITS. Dr. Gabby Armstrong Malnutrition is documented Procedure Note 06/18. Additional clarification regarding the severity of malnutrition is requested. History/Risk Factors: 62yo M, SBO and LBO due to sigmoid stenosis/tumor, sigmoid diverticulitis with abscess, colocutaneous fistula, multiple liver lesions, multiple liver cysts, abdominal compartment syndrome, nontraumatic compartment syndrome of abdomen, hypokalemia, hypomagnesemia, UTI, CISCO, peritoneal abscess, anemia, unintentional weight loss Clinical Indicators: Current BMI: 24.8 Treatment: Tolerating low fiber dietwith no nauseaorvomiting. Continues on Entereg. Functioningcolostomy Please clarify the severity of malnutrition, if known: [ ] Mild Protein-Calorie Malnutrition [ ] Moderate Protein-Calorie Malnutrition [ ] Severe Protein-Calorie Malnutrition [ ] Malnutrition, unknown severity [ ] Other condition, please specify [ ] Unable to Determine (Template Last Revised: December 2022) [x ] Moderate Protein-Calorie Malnutrition MTDD
== END 2023-06-22 16:10 | disposition home or self-care (01) | DRG 329 ==
LOC: EC 12:04 → 5NMEDONC 17:34
PROVIDERS: ADMIT Surgery Plastic and Reconstructive Surgery; ATTEND Surgery Plastic and Reconstructive Surgery
PROC: 0JH60WZ Insertion of Totally Implantable Vascular Access Device into Chest Subcutaneous Tissue and Fascia, Open Approach (ICD-10-PCS; 2023-06-18)
PROC: 0D9B0ZZ Drainage of Ileum, Open Approach (ICD-10-PCS; 2023-06-18)
PROC: 0FB20ZX Excision of Left Lobe Liver, Open Approach, Diagnostic (ICD-10-PCS; 2023-06-18)
PROC: 0D9N0ZZ Drainage of Sigmoid Colon, Open Approach (ICD-10-PCS; 2023-06-18)
PROC: 0W9F0ZZ Drainage of Abdominal Wall, Open Approach (ICD-10-PCS; 2023-06-18)
PROC: 04QY0ZZ Repair Lower Artery, Open Approach (ICD-10-PCS; 2023-06-18)
PROC: 3E0R3BZ Introduction of Anesthetic Agent into Spinal Canal, Percutaneous Approach (ICD-10-PCS; 2023-06-18)
PROC: 00HU33Z Insertion of Infusion Device into Spinal Canal, Percutaneous Approach (ICD-10-PCS; 2023-06-18)
PROC: 0D9670Z Drainage of Stomach with Drainage Device, Via Natural or Artificial Opening (ICD-10-PCS; 2023-06-18)
PROC: 02HV33Z Insertion of Infusion Device into Superior Vena Cava, Percutaneous Approach (ICD-10-PCS; 2023-06-18)
PROC: 3E1M38Z Irrigation of Peritoneal Cavity using Irrigating Substance, Percutaneous Approach (ICD-10-PCS; 2023-06-18)
PROC: 0D1M0Z4 Bypass Descending Colon to Cutaneous, Open Approach (ICD-10-PCS; principal; 2023-06-18 12:45)
PROC: 0DTN0ZZ Resection of Sigmoid Colon, Open Approach (ICD-10-PCS; 2023-06-18 12:45)
DX: C18.7 Malignant neoplasm of sigmoid colon (principal); K65.1 Peritoneal abscess; K56.699 Other intestinal obstruction unspecified as to partial versus complete obstruction; K63.2 Fistula of intestine; E44.0 Moderate protein-calorie malnutrition; M79.A3 Nontraumatic compartment syndrome of abdomen; N17.9 Acute kidney failure, unspecified; E87.20 Acidosis, unspecified; K57.20 Diverticulitis of large intestine with perforation and abscess without bleeding; C78.7 Secondary malignant neoplasm of liver and intrahepatic bile duct; Z16.11 Resistance to penicillins; N39.0 Urinary tract infection, site not specified; D69.6 Thrombocytopenia, unspecified; K76.89 Other specified diseases of liver; D53.9 Nutritional anemia, unspecified; G89.18 Other acute postprocedural pain; E78.5 Hyperlipidemia, unspecified; E83.42 Hypomagnesemia; D75.839 Thrombocytosis, unspecified; E86.0 Dehydration; K66.0 Peritoneal adhesions (postprocedural) (postinfection); D75.838 Other thrombocytosis; E87.6 Hypokalemia; B96.5 Pseudomonas (aeruginosa) (mallei) (pseudomallei) as the cause of diseases classified elsewhere; B95.4 Other streptococcus as the cause of diseases classified elsewhere; B96.89 Other specified bacterial agents as the cause of diseases classified elsewhere; B96.20 Unspecified Escherichia coli [E. coli] as the cause of diseases classified elsewhere; R60.0 Localized edema; Z87.19 Personal history of other diseases of the digestive system; Z81.2 Family history of tobacco abuse and dependence; Z80.0 Family history of malignant neoplasm of digestive organs; Z80.1 Family history of malignant neoplasm of trachea, bronchus and lung; Z68.24 Body mass index [BMI] 24.0-24.9, adult
CPT/HCPCS: 36415; 71045; 74018; 74177; 76770; 77001; 80048; 80053; 81001; 82105; 82150; 82378; 82570; 82728; 82747; 83540; 83550; 83605; 83690; 83735; 84132; 84484; 85025; 85027; 85379; 85610; 85730; 86301; 86850; 86900; 86901; 87070; 87075; 87077; 87086; 87186; 87205; 88304; 88307; 88313; 93005; 93306; 96361; 96374; 99285

== ENCOUNTER → 2023-07-16 | Outpatient (CLI) | payer MEDICAID ==
[2023-07-16 15:53] LABS: Basophils # (A) 0.06 X 10*3/uL (0.00-0.10); Basophils % (A) 0.8 %; Eosinophils # (A) 0.37 X 10*3/uL (0.04-0.35); Eosinophils % (A) 5.2 %; HCT 40.4 % (39.6-50.0); HGB 12.2 g/dL (13.0-17.0); Lymphocytes % (A) 28.1 %; MCH 29.8 pg (27.0-32.0); MCHC 30.2 g/dL (32.0-37.0); MCV 98.5 FL (80.0-97.0); Mean Platelet Volume 11.3 FL (9.5-12.2); Monocytes # (A) 0.77 X 10*3/uL (0.20-1.00); Monocytes % (A) 10.8 %; NRBC Per 100 WBC 0 X 10*3/uL (0.00-0.01); Neutrophils # (A) 3.85 X 10*3/uL (1.80-7.70); Neutrophils % (A) 54.3 %; Platelet Count 273 X 10*3/uL (140-440); RDW 17.2 % (11.5-14.5); WBC 7.11 X 10*3/uL (4.50-10.00)
[2023-07-16 16:30] LABS: ALT 15 U/L (10-49); AST 23 U/L (14-35); Albumin 3.8 g/dL (3.8-4.9); Albumin/Globulin Ratio 1.65 Ratio (1.60-3.17); Alkaline Phosphatase 111 U/L (41-126); BUN/Creat Ratio 7.25 Ratio (12.00-20.00); Blood Urea Nitrogen 5.8 mg/dL (9.0-27.0); Calcium 9.8 mg/dL (8.7-10.3); Carbon Dioxide 26.9 mmol/L (21.6-31.8); Chloride 105 mmol/L (96-109); Globulin 2.3 g/dL (1.6-3.3); Glucose 95 mg/dL (70-110); Potassium 4.9 mmol/L (3.5-5.5); Sodium 143 mmol/L (135-145); Total Bilirubin 0.4 mg/dL (0.3-1.2); Total Protein 6.1 g/dL (6.2-8.2)
== END | disposition home or self-care (01) ==
LOC: LABWHC1 10:09
PROVIDERS: ATTEND Family Medicine
DX: K57.92 Diverticulitis of intestine, part unspecified, without perforation or abscess without bleeding (principal)
CPT/HCPCS: 36415; 80053; 85025

== ENCOUNTER → 2023-09-06 | Outpatient (CLI) | payer MEDICAID ==
[2023-09-06 18:35] LABS: Chol/HDL Ratio 3.86 Ratio; LDL Cholesterol,Calculated 126.3 mg/dL (0.0-131.0)
== END | disposition home or self-care (01) ==
LOC: LABWHC1 10:43
PROVIDERS: ATTEND Family Medicine
DX: Z00.00 Encounter for general adult medical examination without abnormal findings (principal); E78.5 Hyperlipidemia, unspecified
CPT/HCPCS: 36415; 80061

== ENCOUNTER → 2023-12-03 | Outpatient (CLI) | payer MEDICAID ==
[2023-12-03 16:09] LABS: ALT 19 U/L (10-49); AST 23 U/L (14-35); Albumin 4.8 g/dL (3.8-4.9); Albumin/Globulin Ratio 2.18 Ratio (1.60-3.17); Alkaline Phosphatase 70 U/L (41-126); BUN/Creat Ratio 13.08 Ratio (12.00-20.00); Blood Urea Nitrogen 15.7 mg/dL (9.0-27.0); Calcium 9.7 mg/dL (8.7-10.3); Carbon Dioxide 25.8 mmol/L (21.6-31.8); Chloride 102 mmol/L (96-109); Globulin 2.2 g/dL (1.6-3.3); Glucose 92 mg/dL (70-110); Potassium 3.9 mmol/L (3.5-5.5); Sodium 140 mmol/L (135-145); Total Bilirubin 1.9 mg/dL (0.3-1.2)
[2023-12-03 16:25] LABS: Basophils # (A) 0.05 X 10*3/uL (0.00-0.10); Basophils % (A) 0.7 %; Eosinophils # (A) 0.25 X 10*3/uL (0.04-0.35); Eosinophils % (A) 3.4 %; HCT 42.6 % (39.6-50.0); HGB 14.1 g/dL (13.0-17.0); Lymphocytes # (A) 2.73 X 10*3/uL (0.90-5.00); MCH 30.5 pg (27.0-32.0); MCHC 33.1 g/dL (32.0-37.0); Mean Platelet Volume 12.8 FL (9.5-12.2); Monocytes # (A) 0.56 X 10*3/uL (0.20-1.00); Monocytes % (A) 7.6 %; NRBC Per 100 WBC 0 X 10*3/uL (0.00-0.01); Neutrophils # (A) 3.77 X 10*3/uL (1.80-7.70); Neutrophils % (A) 51.2 %; Platelet Count 185 X 10*3/uL (140-440); RBC 4.63 X 10*6/uL (4.40-5.60); RDW 13.7 % (11.5-14.5); WBC 7.37 X 10*3/uL (4.50-10.00)
== END | disposition home or self-care (01) ==
LOC: LABWHC1 08:02
PROVIDERS: ATTEND Surgery Plastic and Reconstructive Surgery
DX: K57.30 Diverticulosis of large intestine without perforation or abscess without bleeding (principal)
CPT/HCPCS: 36415; 80053; 85025; 86850; 86900; 86901

== ENCOUNTER 2023-12-06 11:12 | Inpatient (IN) | payer MEDICAID ==
[2023-12-05 09:52] VITALS: BMI 27.9
--- NOTE | 2023-12-06 10:46 | P.GSHP ---
History of Present Illness H&P Date: 12/06/23 CHIEF COMPLAINT: Perforated diverticulitis with colostomy HISTORY OF PRESENT ILLNESS: The patient is a 63-year-old male who presented over 6 to 9 months ago with colonic obstruction due to perforated diverticulitis. Patient is status post colectomy with ostomy creation. He has adjusted his diet to a high-protein diet. Cardiac risk assessment was previously obtained. Patient is present for colonoscopic investigation as he has had no prior colonoscopy screening. He also presents for colostomy reversal. PAST MEDICAL HISTORY: Please see list. PAST SURGICAL HISTORY: Please see list. MEDICATIONS: Please see list. ALLERGIES: Please see list. SOCIAL HISTORY: No illicit drug use FAMILY HISTORY: No reports of Crohn disease or ulcerative colitis. REVIEW OF ORGAN SYSTEMS: CONSTITUTIONAL: Denies any fever or chills. HEENT: Denies any trouble with vision or nosebleeds. No difficulty swallowing. LYMPHATIC: The patient denies any lumps and bumps around the neck. ENDOCRINE: Denies any thyroid disorders. Has blood sugar glucose intolerance. RESPIRATORY: Denies pneumonia. Denies any troubles with breathing or dyspnea on exertion. CARDIOVASCULAR: Denies any chest pain, palpitations, or recent heart attacks. GASTROINTESTINAL: Has chronic diverticulitis. GENITOURINARY: Has increased urinary frequency. MUSCULOSKELETAL: Has back pain, stiffness, joint arthritis. NEUROLOGIC: Denies any numbness or tingling along the distal extremities. No seizure disorders or headaches. PSYCHIATRIC: Denies depression or suidical ideation. HEMATOLOGIC: Denies any abnormal bleeding or bruising. PHYSICAL EXAM: VITAL SIGNS: Stable GENERAL: Well-developed pleasant in no acute distress. HEENT: No scleral icterus. Extraocular movements grossly intact. Moist buccal mucosa. NECK: Supple without lymphadenopathy. CHEST: Unlabored respirations. Equal bilateral excursions. CARDIOVASCULAR: Regular rate and rhythm. Distal 2+ pulses. ABDOMEN: Soft, nontender, nondistended. Colostomy pink, patent and functioning. MUSCULOSKELETAL: No clubbing, cyanosis, or edema. NERUO: Cranial nerves 2-12 grossly intact. PSYCH: Alert and oriented to person place and time. ASSESSMENT: 1. Perforated diverticulitis with colostomy PLAN: 1. Benefits and risks of surgical robotic sigmoid resection with colostomy reversal was reviewed in detail. Robotic-assisted approach was also described. Possible open technique described. 2. Enhanced colon recovery program. 3. DVT prophylaxis. 4. Antibiotic prophylaxis. 5. Inpatient hospitalization greater than 2 nights. 6. Recommend colonoscopy through colostomy and rectum for screening and evaluation of neoplasm. 7. CBC, CMP and type and screen on day of colonoscopy Past Medical History Past Medical History: Hyperlipidemia Additional Past Medical History / Comment(s): Hx small bowel obstruction Jun 2023-Has temporary colostomy. History of Any Multi-Drug Resistant Organisms: None Reported Past Surgical History: Hernia Repair Additional Past Surgical History / Comment(s): double hernia 1968; non desended left testicle; colonscopy, Jun 2024 surgery for small bowel obstruction-has colostomy now. Surgery planned 12/07/23 for colostomy reversal. Past Anesthesia/Blood Transfusion Reactions: No Reported Reaction Additional Past Anesthesia/Blood Transfusion Reaction / Comment(s): No hx of blood transfusion. Smoking Status: Never smoker - Past Family History Father Family Medical History: Cancer Additional Family Medical History / Comment(s): Grandfather with colon cancer Medications and Allergies Home Medications Medication Instructions Recorded Confirmed Type Atorvastatin [Lipitor] 40 mg PO PC-SUPPER 06/13/23 12/05/23 History Cetirizine HCl [Zyrtec] 10 mg PO QAM 06/13/23 12/05/23 History Aleve(Unknown Dose) 1 dose PO Q8H PRN 12/05/23 12/05/23 History Allergies Allergy/AdvReac Type Severity Reaction Status Date / Time No Known Allergies Allergy Verified 12/05/23 09:44
[~2023-12-06 11:12] MED LIST: Antibiotics per Pharmacy 1 EACH MISC MISCELLANE PRN; LIDOCAINE 1% (10MG/ML) FOR IV START INTRADERMA PRN; ONDANSETRON 4 MG/2 ML VIAL IVP PRN
[2023-12-06] MEDS: LACTATED RINGERS 1,000 ML IV SCH (11:37)
[2023-12-06] MEDS: IV FLUID CONTINUATION 1,000 ML IV ONE ×3 (11:38→14:55)
[2023-12-06 12:07] LABS: Basophils % (A) 1 %; Eosinophils # (A) 0.2 k/uL (0-0.7); Eosinophils % (A) 4 %; HCT 49.1 % (39.0-53.0); HGB 16.1 gm/dL (13.0-17.5); Lymphocytes # (A) 1.8 k/uL (1.0-4.8); Lymphocytes % (A) 28 %; MCH 29.9 pg (25.0-35.0); MCHC 32.7 g/dL (31.0-37.0); MCV 91.3 fL (80.0-100.0); Mean Platelet Volume 10.2; Monocytes # (A) 0.4 k/uL (0-1.0); Monocytes % (A) 7 %; Neutrophils # (A) 3.9 k/uL (1.3-7.7); Neutrophils % (A) 59 %; Platelet Count 194 k/uL (150-450); RBC 5.38 m/uL (4.30-5.90); RDW 13.5 % (11.5-15.5); WBC 6.5 k/uL (3.8-10.6)
[2023-12-06 12:17] LABS: INR 0.9 (<1.2); Prothrombin Time 10.3 sec (10.0-12.5)
[2023-12-06] MEDS ORDERED: PROPOFOL 10 MG/ML 20 ML VIAL IV ONE (12:37)
[2023-12-06] MEDS ORDERED: LIDOCAINE 1% INJ 10MG/ML (20 ML MDV) ONE (12:37)
--- NOTE | 2023-12-06 12:58 | P.PCN ---
Date of Procedure: 12/06/23 Description of Procedure: PREOPERATIVE DIAGNOSIS: History of perforated complicated diverticulitis with fistula Descending colostomy status Colonoscopy screening, first POSTOPERATIVE DIAGNOSIS: History of perforated complicated diverticulitis with fistula Descending colostomy status Colonoscopy screening, first Tubular adenoma transverse colon OPERATION: Colonoscopy through descending colostomy to appendiceal orifice. Colonoscopy with hot snare polypectomy Sigmoidoscopy SURGEON: Gabby Armstrong MD. ANESTHESIA: MAC. INDICATIONS: The patient is a 63-year-old male who presents with personal history of perforated complicated diverticulitis with fistula status post colostomy creation. He presents for his first colonic screening. Benefits and risks were described and informed consent was obtained. DESCRIPTION OF PROCEDURE: The patient had undergone Sutab prep. He had been brought into the operating room and laid supine. The stoma appliance was removed. An Olympus colonoscope was advanced through the descending colostomy to the appendiceal orifice. The prep was fair with liquid stools along the mucosal folds. The scope was removed with visualization of the mucosal fold. No scattered diverticulosis was encountered along the ascending transverse descending colon. Colonic polyps were found. No evidence of focal colitis was found. The colon was desufflated. The patient was transitioned in the left lateral decubitus position where along the previous anus, palpable soft stool was found. Colonoscope was advanced to the proximal sigmoid colon with still residual stool. His stoma appliance was applied. The patient had tolerated the procedure well. Withdrawal time was over 6 minutes. FINDINGS: Aronchik preparation quality scale 3 (1-5) for ostomy Aronchik preparation quality scale 5 (1-5) for rectum No arteriovenous malformations. No focal colitis. Removal of 1 polyp: -Snare polypectomy transverse colon, 5 mm RECOMMENDATIONS: Lower endoscopy in 3 years, 2026
[2023-12-06] MEDS: NEOMYCIN 500 MG TAB PO SCH (13:00)
[2023-12-06] MEDS: metroNIDAZOLE 500 MG TAB PO SCH (13:00)
[2023-12-06 13:53] LABS: ALT 21 U/L (4-49); AST 27 U/L (17-59); African American GFR (CKD) >90 (>60 ml/min/1.73 sqM); Albumin 4.3 g/dL (3.5-5.0); Alkaline Phosphatase 68 U/L (38-126); Anion Gap 8 mmol/L; Blood Urea Nitrogen 10 mg/dL (9-20); Calcium 9.2 mg/dL (8.4-10.2); Carbon Dioxide 26 mmol/L (22-30); Chloride 104 mmol/L (98-107); Glucose 94 mg/dL (74-99); Non-African American GFR(CKD) 78 (>60 ml/min/1.73 sqM); Potassium 3.7 mmol/L (3.5-5.1); Sodium 138 mmol/L (137-145); Total Bilirubin 1.9 mg/dL (0.2-1.3); Total Protein 6.4 g/dL (6.3-8.2)
--- NOTE | 2023-12-06 14:52 | P.PN ---
Progress Note - Text Progress Note Date: 12/06/23 Patient still has moderate residual stool within the ostomy as well as solid stool in the rectum. 2 doses of fleets enema in the afternoon and evening prescribed. Additionally total bilirubin elevated 1.9. IV fluid hydration 2 L bolus given. Continue GoLytely prep. Repeat labs in the morning. Robotic approach described for colostomy reversal with potential open technique also reviewed. All questions described.
[2023-12-06] MEDS: NA PHOS,M-B/NA PHOS,DI-BA 133 ML ENEMA RECTAL STA (16:18)
[2023-12-06] MEDS: SODIUM CHLORIDE 0.9% 2,000 ML IV ONE (16:18)
[2023-12-06] MEDS: PEG 3350 (420 GM/BTL) + LYTES 4,000 ML BOTTLE PO ONE (16:18)
[2023-12-06] MEDS ORDERED: ONDANSETRON 4 MG/2 ML VIAL IVP PRN (20:42)
[2023-12-06] MEDS ORDERED: LIDOCAINE 1% (10MG/ML) FOR IV START INTRADERMA PRN (21:49)
[2023-12-06] MEDS: NA PHOS,M-B/NA PHOS,DI-BA 133 ML ENEMA RECTAL ONE (22:26)
[2023-12-06] MEDS: TEMAZEPAM 15 MG CAP PO ONE (22:59)
[2023-12-06] MEDS: SODIUM CHLORIDE 0.9% 1,000 ML IV ONE (23:01)
[2023-12-07] MEDS: SODIUM CHLORIDE 0.9% 1,000 ML IV SCH (00:08)
[2023-12-07] MEDS ORDERED: metroNIDAZOLE-NS PMX 500 MG in SALINE 1 100ML.BAG IVPB PRN (05:00)
[2023-12-07] MEDS ORDERED: fentaNYL (PF) 50 MCG/ML 2 ML AMP IV PRN (07:00)
[2023-12-07] MEDS ORDERED: ACETAMINOPHEN TAB 500 MG TAB PO PRN (07:00)
[2023-12-07] MEDS ORDERED: HYDROmorphone 0.5 MG/0.5 ML SYRINGE IVP PRN (07:00)
[2023-12-07] MEDS ORDERED: ALVIMOPAN 12 MG CAPSULE PO PRN (07:00)
[2023-12-07] MEDS ORDERED: MIDAZOLAM 2 MG/2 ML VIAL IV PRN (07:00)
[2023-12-07 07:36] LABS: Basophils % (A) 1 %; Eosinophils # (A) 0.1 k/uL (0-0.7); Eosinophils % (A) 2 %; HCT 40.9 % (39.0-53.0); HGB 13.2 gm/dL (13.0-17.5); Lymphocytes # (A) 1.9 k/uL (1.0-4.8); Lymphocytes % (A) 26 %; MCH 29.9 pg (25.0-35.0); MCHC 32.3 g/dL (31.0-37.0); MCV 92.6 fL (80.0-100.0); Mean Platelet Volume 9.9; Monocytes # (A) 0.5 k/uL (0-1.0); Monocytes % (A) 7 %; Neutrophils # (A) 4.5 k/uL (1.3-7.7); Neutrophils % (A) 62 %; Platelet Count 146 k/uL (150-450); RBC 4.42 m/uL (4.30-5.90); RDW 13.5 % (11.5-15.5); WBC 7.3 k/uL (3.8-10.6)
[2023-12-07 08:06] LABS: African American GFR (CKD) >90 (>60 ml/min/1.73 sqM); Anion Gap 7 mmol/L; Blood Urea Nitrogen 7 mg/dL (9-20); Calcium 8.7 mg/dL (8.4-10.2); Carbon Dioxide 21 mmol/L (22-30); Chloride 112 mmol/L (98-107); Glucose 70 mg/dL (74-99); Non-African American GFR(CKD) 87 (>60 ml/min/1.73 sqM); Potassium 3.5 mmol/L (3.5-5.1); Sodium 140 mmol/L (137-145)
[2023-12-07] MEDS: TAMSULOSIN 0.4 MG CAP.ER.24H PO SCH (10:14)
[2023-12-07] MEDS: IV FLUID CONTINUATION 1,000 ML IV ONE ×3 (12:41→16:45)
[2023-12-07] MEDS: MIDAZOLAM 2 MG/2 ML VIAL IVP ONE (14:16)
--- NOTE | 2023-12-07 14:30 | P.HPADDEND ---
H&P Addendum H&P Addendum Date: 12/07/23 Patient did not have bowel movement despite multiple enemas. Patient is advised that risk of persistent stool in rectum may lead to cancellation of surgery. Alternative of on-table lavage for rectal stump reviewed. Patient wished to proceed. Epidural placement preop advised. All questions addressed.
[2023-12-07] MEDS: DEXAMETHASONE SOD PHOSPHATE 4 MG/ML 1 ML VIAL IV ONE (14:42)
[2023-12-07] MEDS: ONDANSETRON 4 MG/2 ML VIAL IVP ONE (14:42)
[2023-12-07] MEDS ORDERED: diphenhydrAMINE 50 MG/ML 1 ML VIAL IVP PRN (14:47)
[2023-12-07] MEDS ORDERED: NALOXONE 0.4 MG/ML 1 ML VIAL IV PRN (14:47)
--- NOTE | 2023-12-07 14:49 | P.ANPRN ---
Procedure Note - Anesthesia - Epidural/Spinal Epidural Continuous Time Out Performed: Yes Date of Procedure: 12/07/23 Procedure Start Time: 14:15 Procedure Stop Time: 14:22 Location of Patient: PreOp Indication: Acute Post-Operative Pain, Requested by Surgeon Sedation Type: Sedate with meaningful contact maintained Preparation: Sterile Dressing Position: Sitting Catheter: Indwelling Needle Guage: 18 Blood Aspirated: No Pain Paresthesia on Injection Noted: No Events: Uneventful and Well Tolerated
[2023-12-07] MEDS ORDERED: fentaNYL (PF) 50 MCG/ML 2 ML AMP ONE (14:56)
[2023-12-07] MEDS ORDERED: ePHEDrine 50 MG/ML 1 ML VIAL ONE (14:56)
[2023-12-07] MEDS ORDERED: ROCURONIUM 10 MG/ML (5 ML VIAL) IV ONE (14:56)
[2023-12-07] MEDS ORDERED: PROPOFOL 10 MG/ML 20 ML VIAL IV ONE (14:56)
[2023-12-07] MEDS ORDERED: PHENYLEPHRINE 10 MG/ML VIAL ONE (14:56)
[2023-12-07] MEDS ORDERED: MIDAZOLAM 2 MG/2 ML VIAL ONE (14:56)
[2023-12-07] MEDS ORDERED: GLYCOPYRROLATE 0.2 MG/ML 2 ML VIAL ONE (14:56)
[2023-12-07] MEDS ORDERED: SUCCINYLCHOLINE CHLORIDE 200 MG/10 ML VIAL IV ONE (14:56)
[2023-12-07] MEDS ORDERED: NEOSTIGMINE 1 MG/ML 10 ML VIAL ONE (14:56)
[2023-12-07] MEDS: LACTATED RINGERS 1,000 ML IV SCH (15:12)
--- NOTE | 2023-12-07 15:46 | P.CONS ---
History of Present Illness - Reason for Consult Consult date: 12/07/23 Medical management Requesting physician: Joseph Loving - History of Present Illness This is a 63-year-old gentleman with past medical history significant for colectomy with ostomy secondary to perforated diverticulitis, scheduled for colostomy reversal today, completed colonoscopy yesterday. Status post enemas, currently completing GoLytely prep. afebrile, normal WBC, hemoglobin 13.2, platelets 146. Sodium 140, potassium 3.5-supplement ordered bicarb 21, BUN 7, creatinine 0.93, T. bili 1.9. Denies chest pain, palpitation or shortness of breath. Maintaining O2 sats in the high 90s on room air. Review of Systems ROS Statement: Those systems with pertinent positive or pertinent negative responses have been documented in the HPI. ROS Other: All systems not noted in ROS Statement are negative. Past Medical History Past Medical History: Hyperlipidemia Additional Past Medical History / Comment(s): Hx small bowel obstruction Jun 2023-Has temporary colostomy. History of Any Multi-Drug Resistant Organisms: None Reported Past Surgical History: Hernia Repair Additional Past Surgical History / Comment(s): double hernia 1968; non desended left testicle; colonscopy, Jun 2024 surgery for small bowel obstruction-has colostomy now. Surgery planned 12/07/23 for colostomy reversal. Past Anesthesia/Blood Transfusion Reactions: No Reported Reaction Additional Past Anesthesia/Blood Transfusion Reaction / Comm: No hx of blood transfusion. Past Psychological History: No Psychological Hx Reported Smoking Status: Never smoker Past Alcohol Use History: Rare Past Drug Use History: None Reported - Past Family History Father Family Medical History: Cancer Additional Family Medical History / Comment(s): Grandfather with colon cancer Medications and Allergies Home Medications Medication Instructions Recorded Confirmed Type Atorvastatin [Lipitor] 40 mg PO PC-SUPPER 06/13/23 12/05/23 History Cetirizine HCl [Zyrtec] 10 mg PO QAM 06/13/23 12/05/23 History Aleve(Unknown Dose) 1 dose PO Q8H PRN 12/05/23 12/05/23 History Allergies Allergy/AdvReac Type Severity Reaction Status Date / Time No Known Allergies Allergy Verified 12/06/23 11:28 Physical Exam Vitals: Vital Signs Temp Pulse Resp BP BP Pulse Ox 12/07/23 12:41 98.1 F 89 18 134/84 98 12/07/23 07:42 97.7 F 82 16 132/71 99 12/07/23 02:00 97.9 F 81 16 122/64 98 12/06/23 20:00 97.6 F 67 16 137/84 98 12/06/23 15:50 98.2 F 67 17 154/82 97 Intake and Output 12/07/23 12/07/23 12/07/23 06:59 14:59 22:59 Intake Total 900 Balance 900 Intake: IV 900 Other: Voiding Method Toilet Weight 81 kg General: Alert and oriented 3, sitting up at bedside, no acute distress HEENT: Atraumatic,Normocephalic, PERRL. EOMI. MMM. Neck: Supple, no JVD Cardiac: [Heart regular in rate and rhythm. No S3. No S4. No clicks, rubs. No murmur. Lungs: Unlabored, equal air entry, Clear to auscultation bilaterally. Abdomen: Soft, nondistended, nontender,ostomy present, positive bowel sounds Extremes: no edema, no cyanosis no claudication normal pulses Skin: Warm and dry, no rashes noted Neurologic: CN II - XII grossly intact. No focal deficits Results CBC & Chem 7: 12/07/23 05:48 12/07/23 05:48 Labs: Abnormal Lab Results - Last 24 Hours (Table) 12/07/23 12/07/23 Range/Units 05:48 05:48 Plt Count 146 L (150-450) k/uL Chloride 112 H (98-107) mmol/L Carbon Dioxide 21 L (22-30) mmol/L BUN 7 L (9-20) mg/dL Glucose 70 L (74-99) mg/dL Assessment and Plan Assessment: History of colectomy with ostomy secondary to perforated diverticulitis, scheduled for colostomy reversal today, completed colonoscopy yesterday T. bili 1.9, Hypokalemia Plan: Continue on current medication regimen ,monitoring and symptomatic treatment. Colostomy reversal pending. IV fluid hydration. Close monitoring of T. bili, electrolytes, renal function, hemoglobin and platelets with repeat labs ordered for a.m. Pain management, DVT prophylaxis as per primary. Thank you for the consult. The impression and plan of care has been dictated as directed. : I performed a history and examination of this patient, discussed the same with the dictator. I agree with the dictator's note ,documented as a scribe. Any ad ditional findings or plans will be noted.
[2023-12-07] MEDS: LIDOCAINE 1%-EPI 1:100,000 20 ML VIAL SQ ONE (16:00)
--- NOTE | 2023-12-07 18:57 | P.GSCN ---
History of Present Illness Consult date: 12/07/23 Reason for Consult: Urethral stricture History of present illness: This is a 63-year-old male that is currently undergoing a colostomy reversal by Dr. Armstrong. Urology was consulted intraoperatively for a Ley catheter placement, attempted to place a Ley catheter by the nursing staff Dr. Armstrong was unsuccessful secondary to a penile urethral stricture. On review of records no previous history of strictures or previous urological surgeries. Review of Systems ROS unobtainable: due to endotracheal tube Past Medical History Past Medical History: Hyperlipidemia Additional Past Medical History / Comment(s): Hx small bowel obstruction Jun 2023-Has temporary colostomy. History of Any Multi-Drug Resistant Organisms: None Reported Past Surgical History: Hernia Repair Additional Past Surgical History / Comment(s): double hernia 1968; non desended left testicle; colonscopy, Jun 2024 surgery for small bowel obstruction-has colostomy now. Surgery planned 12/07/23 for colostomy reversal. Past Anesthesia/Blood Transfusion Reactions: No Reported Reaction Additional Past Anesthesia/Blood Transfusion Reaction / Comm: No hx of blood transfusion. Past Psychological History: No Psychological Hx Reported Smoking Status: Never smoker Past Alcohol Use History: Rare Past Drug Use History: None Reported - Past Family History Father Family Medical History: Cancer Additional Family Medical History / Comment(s): Grandfather with colon cancer Medications and Allergies Home Medications Medication Instructions Recorded Confirmed Type Atorvastatin [Lipitor] 40 mg PO PC-SUPPER 06/13/23 12/05/23 History Cetirizine HCl [Zyrtec] 10 mg PO QAM 06/13/23 12/05/23 History Aleve(Unknown Dose) 1 dose PO Q8H PRN 12/05/23 12/05/23 History Allergies Allergy/AdvReac Type Severity Reaction Status Date / Time No Known Allergies Allergy Verified 12/06/23 11:28 Surgical - Exam Vital Signs Temp Pulse Resp BP Pulse Ox 97.5 F L 80 16 170/83 97 12/06/23 11:29 12/06/23 11:29 12/06/23 11:29 12/06/23 11:29 12/06/23 11:29 - Genitourinary normal penis with no external lesions, testicles present Results - Labs 12/07/23 05:48 12/07/23 05:48 Abnormal Lab Results - Last 24 Hours (Table) 12/07/23 12/07/23 Range/Units 05:48 05:48 Plt Count 146 L (150-450) k/uL Chloride 112 H (98-107) mmol/L Carbon Dioxide 21 L (22-30) mmol/L BUN 7 L (9-20) mg/dL Glucose 70 L (74-99) mg/dL Diabetes panel 12/07/23 Range/Units 05:48 Sodium 140 (137-145) mmol/L Potassium 3.5 (3.5-5.1) mmol/L Chloride 112 H (98-107) mmol/L Carbon Dioxide 21 L (22-30) mmol/L BUN 7 L (9-20) mg/dL Creatinine 0.93 (0.66-1.25) mg/dL Glucose 70 L (74-99) mg/dL Calcium 8.7 (8.4-10.2) mg/dL Calcium panel 12/07/23 Range/Units 05:48 Calcium 8.7 (8.4-10.2) mg/dL Pituitary panel 12/07/23 Range/Units 05:48 Sodium 140 (137-145) mmol/L Potassium 3.5 (3.5-5.1) mmol/L Chloride 112 H (98-107) mmol/L Carbon Dioxide 21 L (22-30) mmol/L BUN 7 L (9-20) mg/dL Creatinine 0.93 (0.66-1.25) mg/dL Glucose 70 L (74-99) mg/dL Calcium 8.7 (8.4-10.2) mg/dL Adrenal panel 12/07/23 Range/Units 05:48 Sodium 140 (137-145) mmol/L Potassium 3.5 (3.5-5.1) mmol/L Chloride 112 H (98-107) mmol/L Carbon Dioxide 21 L (22-30) mmol/L BUN 7 L (9-20) mg/dL Creatinine 0.93 (0.66-1.25) mg/dL Glucose 70 L (74-99) mg/dL Calcium 8.7 (8.4-10.2) mg/dL Assessment and Plan Assessment: 63-year-old male with history of penile urethral stricture urology is consulted intraoperatively for Ley catheter placement -16 Tamazight Ley catheter was placed, Ley catheter can be removed once patient is ambulatory, and epidural is discontinued. Recommend keeping a catheter for minimum of 3 days
--- NOTE | 2023-12-07 18:57 | P.OP ---
Date of Procedure: 12/07/23 Preoperative Diagnosis: Urethral stricture Postoperative Diagnosis: Same Procedure(s) Performed: Urethral dilation, Ley catheter placement Anesthesia: HALLIE Surgeon: Santos Nation Estimated Blood Loss (ml): 5 Pathology: none sent Indications for Procedure: This 63-year-old male with history of penile urethral stricture, attempted place a Ley catheter by the nursing staff and Dr. Armstrong was unsuccessful. Thus urology was consulted intraoperatively for Ley catheter placement Description of Procedure: At this time patient was intubated and draped for his colostomy reversal. Penis was prepped sterilely, next using the [place] sounds at the urethral stricture was dilated from [address] up to 20 Serbian. Stricture was at the penile urethra, approximately 4 cm from the meatus. next a 16 Serbian silicone catheter was advanced per urethra and into the bladder with the return of clear urine. Patient tolerated procedure well with no complication
[2023-12-07] MEDS: LACTATED RINGERS 1,000 ML IV ONE (19:34)
[2023-12-07] MEDS: ROPIVACAINE 250 MG, HYDROMORPHONE (PF) 5 MG in SODIUM CHLORIDE 0.9% 200 ML EPIDURAL PRN (20:29)
[2023-12-07] MEDS: POTASSIUM CHLORIDE ER 20 MEQ TAB.ER PO STA (21:01)
[2023-12-07] MEDS: HEPARIN SODIUM,PORCINE 5,000 UNIT/ML 1 ML VIAL SQ ONE (21:01)
[2023-12-07] MEDS ORDERED: HYDROmorphone 1 MG/ML 1 ML SYRINGE IVP PRN (23:25)
[2023-12-07] MEDS ORDERED: METOCLOPRAMIDE 5 MG/ML 2 ML VIAL IVP PRN (23:25)
[2023-12-07] MEDS ORDERED: BENZOCAINE/MENTHOL LOZENG 1 EACH LOZENGE MUCOUS MEM PRN (23:25)
[2023-12-08] MEDS: D5-0.45% NACL WITH KCL 20MEQ/L 1,000 ML IV SCH (01:20)
[2023-12-08] MEDS: metroNIDAZOLE-NS PMX 500 MG in SALINE 1 100ML.BAG IVPB SCH (02:16)
--- NOTE | 2023-12-08 08:09 | P.OP ---
Date of Procedure: 12/07/23 Description of Procedure: SURGEON: JOANNE SARABIA MD PREOPERATIVE DIAGNOSES: 1. Perforated sigmoid diverticulitis with descending colostomy and sepsis history 2. Colostomy status POSTOPERATIVE DIAGNOSES: 1. Perforated sigmoid diverticulitis with descending colostomy and sepsis history 2. Colostomy status OPERATION: 1. Robotic-assisted daVinci Xi laparoscopic lysis of adhesions, extensive over 2 hours 2. Robotic-assisted daVinci Xi closure of colostomy/Nicholas's 3. Robotic-assisted daVinci Xi sigmoid colectomy with low anterior resection using 29 mm Ethicon powered stapler 4. Intraoperative colonoscopy used for sigmoidoscopy 5. Application of incisional wound VAC system, 13 cm PREVENA Anesthesia: GETA, local, regional Estimated Blood Loss (ml): 20 Pathology: none Condition: stable Disposition: floor COMPLICATIONS: None. Operative Findings: 1. Severe intra-abdominal adhesions and pelvic adhesions from prior ruptured diverticulitis 2. Anastomosis with EEA stapler 29 mm 3. Urethral stricture 4 mm centimeters requiring intraoperative consultation urology 4. Doughnuts thick on distal and stent on the proximal and 5. Negative leak test with viable anastomosis. INDICATIONS: The patient is a 67-year-old female who presented 2 months ago with sepsis from perforated appendicitis and perforated diverticulitis. She underwent exploratory laparotomy for peritonitis and descending colostomy status/Grimm's procedure. Benefits and risks of surgical intervention was described in detail including infection, injury to the ureter, colostomy creation, possibility for additional surgery was discussed at length. Informed consent was obtained. DESCRIPTION: Earlier the patient had undergone a bowel prep using the enhanced colon recovery program. The patient was transferred to the operating room and placed supine. After general induction, the abdomen was prepped and draped in standard sterile fashion. Ioban was placed along the abdomen to minimize any contamination of skin floor. A Ley catheter was placed. Her colostomy was covered using 4 x 4. After a timeout protocol was performed, attention was then brought to the left upper quadrant whereby a 0 degree 5 mm laparoscopic trocar entry was performed. The abdominal cavity was entered and insufflated to 15 mmHg pressure, which was tolerated well. Diagnostic laparoscopy confirmed severe omental to abdominal wall adhesions including pelvic adhesions. Next a robotic 12-mm trocar was placed along the right lateral abdominal wall 20 cm superior from the pelvis. Two 8 mm ports were placed along the upper abdomen. Ports were placed 10 cm apart from each other including 20 cm away from the target anatomy of the left pelvis. The 12-mm port was exchanged for an 8 mm robotic port at the left upper quadrant. The robot was docked along the left lateral abdomen. The patient was positioned in steep Trendelenburg position at 21-degrees. Using atraumatic graspers and vessel sealer, the robotic system was docked and primed as described. Instruments were interchanged by the dermatology physician assistant including hook cautery, needle patrol driver, robotic stapler and vessel sealer. The robot stapler was prepared along the right lateral abdominal wall. The stapler 12-mm port was arranged along the right lateral abdominal wall. Omental to abdominal adhesions were taken down sharply using vessel sealer including blunt dissection. Bleeding was controlled with 4 x 4 gauze. Extensive lysis of adhesions over 2-1/2-hour was performed including pelvic adhesions with small bowel adherent to the pelvis including fallopian tubes and ovary. The sigmoid colon rectal stump was identified using blue suture and further mobilized prepared for partial colectomy. I went to the foot of the bed to confirm sizers and placement of 29-mm Ethicon powered stapler. I re-scrubbed into the case. The robotic arms were temporarily undocked. Attention was brought to the descending colostomy of the left lower quadrant where using a #15 blade, elliptical incision incorporating the ostomy was performed at the dermis. Electro-Bovie cautery was used to mobilize the soft tissue down to the fascia. A 29-mm anvil was placed with a 3-0 silk sutured at the tip of the anvil radiographic technologist. Then the anvil was placed via the mobilized descending colostomy. The colostomy was oversewn using 2-0 nylon for airtight closure. The fascia around the ostomy was entered with release of pneumoperitoneum. The ostomy was delivered into the abdominal cavity and the ostomy site and fascia was closed using nonabsorbable blue #1 V-Loc. Attention was brought to the sigmoid rectal stump which was further mobilized and the old suture line was resected using a 60 mm green staple load for partial colectomy. Similarly, the descending colostomy was removed including inflammatory tissue from prior diverticulitis using multiple fires 60 mm green staple load. Next, the sharp tip of the anvil radiographic technologist was brought through the staple line. The anvil radiographic technologist was removed from the abdomen using robotic needle patrol driver. I went to the foot of the bed to place the powered Ethicon 29 mm stapler via the rectum. The anvil and stapler were mated for 1 minute. The doughnuts were intact on both sides and thick. An intraoperative leak test was performed as I inserted the colonoscope to the anastomosis. Endoscopic images were obtained. Irrigation was placed in the pelvis and no air leaks were identified. Irrigation fluid was aspirated from the pelvis until dry. I went back to the console. All sponges and needles were removed from the abdominal cavity. The robot was undocked. I re-scrubbed into the case. Via the ostomy site, the sigmoid colon and divided ostomy was removed using 15 mm Endo Catch bag. All sponges were removed from the abdominal cavity. The fascial defect of the ostomy site was oversewn using 0 Vicryl and a Onur Nunez. No contamination had occurred throughout the case. The ostomy fascia was oversewn using nonabsorbable #1 V-Loc Next all pneumoperitoneum was evacuated from the abdominal cavity. The 8-mm trocar sites were reapproximated using 4-0 Monocryl in an interrupted subcuticular fashion. Local anesthetic was infiltrated to all wounds for postop analgesia. All incisions were also cleansed with diluted hydrogen peroxide. The ostomy subcutaneous tissue was irrigated and closed using standard skin pierre. Incisional wound VAC system 13 cm was placed over the ostomy site to decrease risk of infection. Liquid glue was applied to the rest of the skin incisions. The patient had tolerated the procedure well. The patient was extubated successfully. The patient was transferred to the postanesthesia care unit in stable condition. Intraoperative findings were described in detail to the patient's family.Consent lysis of adhesions over 1 hour Urethral stricture requiring intraoperative consultation urologist Please see separate operative note for urologist Incisions placed along the right lateral abdominal wall and upper abdomen Placement of Prevena wound VAC, 13 cm, 9 x 6 cm excision ostomy Negative leak test 29 mm stapler used ostomy delivered into abdomen with robotic resection of Distal end
--- NOTE | 2023-12-08 08:12 | P.PN ---
Progress Note - Text Progress Note Date: 12/07/23 Patient seen and evaluated postoperatively. Intraoperative findings were described at length including urethral stricture requiring dilation. Also, rectal lavage discussed which was completely clean during case. Low fiber diet including avoidance of seeds described for at least 30 days until January 05. Inpatient hospitalization throughout the week discussed due to extensive and complex nature of surgery. Continuation of antibiotics due to diverticulitis and extensive nature of procedure.
[2023-12-08] MEDS: FAMOTIDINE 20 MG/2 ML VIAL IV SCH (08:58)
[2023-12-08] MEDS: ALVIMOPAN 12 MG CAPSULE PO SCH (08:58)
[2023-12-08] MEDS: HEPARIN SODIUM,PORCINE 5,000 UNIT/ML 1 ML VIAL SQ SCH (08:58)
[2023-12-08 10:02] LABS: Basophils # (A) 0.01 X 10*3/uL (0.00-0.10); Basophils % (A) 0.1 %; Eosinophils # (A) 0 X 10*3/uL (0.04-0.35); Eosinophils % (A) 0 %; Lymphocytes # (A) 0.55 X 10*3/uL (0.90-5.00); MCH 30.4 pg (27.0-32.0); MCHC 31.6 g/dL (32.0-37.0); MCV 96.2 FL (80.0-97.0); Mean Platelet Volume 12.7 FL (9.5-12.2); Monocytes # (A) 0.87 X 10*3/uL (0.20-1.00); Monocytes % (A) 6.4 %; NRBC Per 100 WBC 0 X 10*3/uL (0.00-0.01); Neutrophils # (A) 12.22 X 10*3/uL (1.80-7.70); Neutrophils % (A) 89.3 %; Platelet Count 163 X 10*3/uL (140-440); RBC 3.95 X 10*6/uL (4.40-5.60); RDW 13.8 % (11.5-14.5); WBC 13.68 X 10*3/uL (4.50-10.00)
[2023-12-08 10:20] LABS: Magnesium 1.7 mg/dL (1.5-2.4)
[2023-12-08 10:33] LABS: ALT 14 U/L (10-49); AST 21 U/L (14-35); Albumin 3.9 g/dL (3.8-4.9); Albumin/Globulin Ratio 2.17 Ratio (1.60-3.17); Alkaline Phosphatase 53 U/L (41-126); BUN/Creat Ratio 6.58 Ratio (12.00-20.00); Blood Urea Nitrogen 7.9 mg/dL (9.0-27.0); Calcium 8.2 mg/dL (8.7-10.3); Carbon Dioxide 19.2 mmol/L (21.6-31.8); Chloride 106 mmol/L (96-109); Globulin 1.8 g/dL (1.6-3.3); Glucose 197 mg/dL (70-110); Potassium 4.2 mmol/L (3.5-5.5); Sodium 140 mmol/L (135-145); Total Bilirubin 0.3 mg/dL (0.3-1.2); Total Protein 5.7 g/dL (6.2-8.2)
--- NOTE | 2023-12-08 11:19 | P.PN ---
Subjective his is a 63-year-old gentleman with past medical history significant for colectomy with ostomy secondary to perforated diverticulitis, scheduled for colostomy reversal today, completed colonoscopy yesterday. Status post enemas, currently completing GoLytely prep. afebrile, normal WBC, hemoglobin 13.2, platelets 146. Sodium 140, potassium 3.5-supplement ordered bicarb 21, BUN 7, creatinine 0.93, T. bili 1.9. Denies chest pain, palpitation or shortness of breath. Maintaining O2 sats in the high 90s on room air. December 08, 2023: Patient was reevaluated today he is postop day 1 reversal robotic assisted closure of colostomy and sigmoid colectomy with low anterior resection With colonoscopy. He has an epidural in place. He has a Ley catheter to gravity has they are unable to place Ley catheter during his surgery. Dr. Chavez was consulted for this. His vitals are stable. Labs show reactive the surgery. Otherwise Karthik has no complaints no chest pain shortness of breath nausea or vomiting. Objective - Vital Signs Vital signs: Vital Signs Temp 98.2 F 12/08/23 08:00 Pulse 102 H 12/08/23 08:00 Resp 16 12/08/23 08:00 BP 111/53 12/08/23 08:00 Pulse Ox 96 12/08/23 08:00 FiO2 Intake & Output 12/07/23 12/08/23 12/08/23 18:59 06:59 18:59 Intake Total 3050 200 Output Total 700 Balance 3050 -500 Weight 81 kg Intake: IV 3050 200 Output: Urine 700 Other: Voiding Method Toilet Indwelling Catheter Indwelling Catheter - Exam General: The patient is awake and alert, in no distress, and appears comfortable. There is an epidural catheter and Ley catheter noted in place Neck: The neck is supple, there is no thyromegaly, lymphadenopathy, tenderness or JVD. Cardiovascular: S1S2 is normal, There is a regular rate and rhythm. No murmur, rub or gallop is appreciated. Respiratory: Lungs are clear to auscultation bilaterally, respirations are non -labored, breath sounds are equal. Gastrointestinal: Soft, normal bowel sounds, dressing to left lower quadrant intact Musculoskeletal: Normal ROM, no tenderness, There is no pedal edema. There is no calf tenderness or swelling. No cords were appreciated. Neurological: CN II-XII intact, there are no obvious motor or sensory deficits. Coordination appears grossly intact. Speech is normal. Skin: Skin is warm and dry and no rashes or lesions are noted. - Labs CBC & Chem 7: 12/08/23 06:57 12/08/23 06:57 Labs: Abnormal Lab Results - Last 24 Hours (Table) 12/08/23 12/08/23 Range/Units 06:57 06:57 WBC 13.68 H (4.50-10.00) X 10*3/uL RBC 3.95 L (4.40-5.60) X 10*6/uL Hgb 12.0 L (13.0-17.0) g/dL Hct 38.0 L (39.6-50.0) % MCHC 31.6 L (32.0-37.0) g/dL MPV 12.7 H (9.5-12.2) FL Neutrophils # 12.22 H (1.80-7.70) X 10*3/uL Lymphocytes # 0.55 L (0.90-5.00) X 10*3/uL Eosinophils # 0 L (0.04-0.35) X 10*3/uL Carbon Dioxide 19.2 L (21.6-31.8) mmol/L Anion Gap 14.80 H (4.00-12.00) mmol/L BUN 7.9 L (9.0-27.0) mg/dL BUN/Creatinine Ratio 6.58 L (12.00-20.00) Ratio Glucose 197 H (70-110) mg/dL Calcium 8.2 L (8.7-10.3) mg/dL Total Protein 5.7 L (6.2-8.2) g/dL Assessment and Plan Plan: Status post colectomy and ostomy reversal, postop day #1. Urinary stricture, now with Ley catheter Hyperlipidemia Surgery is following managing his pain. He is currently on Dilaudid. Medically he is stable. Labs show reactive to surgery. Vitals otherwise are normal. He has no complaints feels well. Remains on cefazolin for antibiotic coverage. Heparin was ordered for DVT prophylaxis. He has tamsulosin to help with urinary retention. He will continue on the Ley to gravity per surgery, will repeat labs in a.m., reevaluate next 24 hours.
--- NOTE | 2023-12-08 14:33 | P.PN ---
Progress Note - Text Progress Note Date: 12/08/23 Postoperative day #1 status post low , robotic colostomy closure ,epidural catheter placed for postoperative analgesia, patient doing well epidural site okay, patient currently on combination of epidural infusion solution of Ropivacaine 0.0625% and Dilaudid 20 g per mL the infusion rate at 6 ml per hour , patient had no motor deficit epidural site okay , vital signs stable ,VAS 0 /10 , Assessment and plan= post operative day # 1 patient doing well ,pain well controlled , there is no anesthesia related complications
--- NOTE | 2023-12-08 18:13 | P.PN ---
Progress Note - Text Progress Note Date: 12/08/23 CHIEF COMPLAINT: Colostomy in Place HISTORY OF PRESENT ILLNESS: Pain is well controlled. Tolerating diet. No bowel function. PHYSICAL EXAM: VITAL SIGNS: Reviewed. GENERAL: Well-developed in no acute distress. HEENT: No sclera icterus. Extraocular movements grossly intact. Moist buccal mucosa. Head is atraumatic, normocephalic. ABDOMEN: Soft. Mildly distended. Incisions C/D/I. Prevena wound vac in place NEUROLOGIC: Alert and oriented. Cranial nerves II through XII grossly intact. ASSESSMENT: 1. POD #1 Robotic Hartmanns Reversal, Extensive MAURILIO, intraoperative sigmoidoscopy 2. Urethral Stricture PLAN: -Low Fiber Diet -Epidural in Place -Ley in Place. Urology consult for urethral stricture -Pain Control
--- NOTE | 2023-12-09 09:08 | P.PN ---
Subjective Progress Note Date: 12/09/23 No acute overnight event, urine in the catheter is clear Objective - Vital Signs Vital signs: Vital Signs Temp 99.5 F 12/09/23 06:47 Pulse 85 12/09/23 06:47 Resp 17 12/09/23 06:47 BP 127/51 12/09/23 06:47 Pulse Ox 96 12/09/23 06:47 FiO2 Intake & Output 12/08/23 12/09/23 12/09/23 18:59 06:59 18:59 Intake Total 171.5 Output Total 1100 Balance -928.5 Intake: Intake, IV Titration 171.5 Amount Ropivacaine 250 mg 171.5 Hydromorphone (Pf) 5 mg In Sodium Chloride 0.9% 200 ml @ Per Protocol EPIDURAL .Q0M PRN Rx#: [id number] Output: Urine 1100 Other: Voiding Method Indwelling Catheter Indwelling Catheter - Constitutional General appearance: Present: no acute distress - Labs CBC & Chem 7: 12/08/23 06:57 12/08/23 06:57 Labs: Abnormal Lab Results - Last 24 Hours (Table) 12/08/23 12/08/23 Range/Units 06:57 06:57 WBC 13.68 H (4.50-10.00) X 10*3/uL RBC 3.95 L (4.40-5.60) X 10*6/uL Hgb 12.0 L (13.0-17.0) g/dL Hct 38.0 L (39.6-50.0) % MCHC 31.6 L (32.0-37.0) g/dL MPV 12.7 H (9.5-12.2) FL Neutrophils # 12.22 H (1.80-7.70) X 10*3/uL Lymphocytes # 0.55 L (0.90-5.00) X 10*3/uL Eosinophils # 0 L (0.04-0.35) X 10*3/uL Carbon Dioxide 19.2 L (21.6-31.8) mmol/L Anion Gap 14.80 H (4.00-12.00) mmol/L BUN 7.9 L (9.0-27.0) mg/dL BUN/Creatinine Ratio 6.58 L (12.00-20.00) Ratio Glucose 197 H (70-110) mg/dL Calcium 8.2 L (8.7-10.3) mg/dL Total Protein 5.7 L (6.2-8.2) g/dL Assessment and Plan Assessment: 63-year-old male with history of penile urethral stricture urology is consulted intraoperatively for Ley catheter placement -16 Czech Ley catheter was placed, Ley catheter can be removed once patient is ambulatory, and epidural is discontinued. Recommend keeping a catheter for minimum of 3 days
--- NOTE | 2023-12-09 09:36 | P.PN ---
Subjective Progress Note Date: 12/09/23 the patient is resting comfortably bed. He is status post reversal colostomy. He has had minimal complaints of pain. He has had no flatus. He is actually burping. On exam vital signs are stable. Abdomen is soft. Incision sites are clean dry tach. Patient will receive supportive care. He will advance his diet once his bowel function returns. Objective - Vital Signs Vital signs: Vital Signs Temp 99.5 F 12/09/23 06:47 Pulse 85 12/09/23 06:47 Resp 17 12/09/23 06:47 BP 127/51 12/09/23 06:47 Pulse Ox 96 12/09/23 06:47 FiO2 Intake & Output 12/08/23 12/09/23 12/09/23 18:59 06:59 18:59 Intake Total 171.5 Output Total 1100 Balance -928.5 Intake: Intake, IV Titration 171.5 Amount Ropivacaine 250 mg 171.5 Hydromorphone (Pf) 5 mg In Sodium Chloride 0.9% 200 ml @ Per Protocol EPIDURAL .Q0M PRN Rx#: [id number] Output: Urine 1100 Other: Voiding Method Indwelling Catheter Indwelling Catheter - Labs CBC & Chem 7: 12/08/23 06:57 12/08/23 06:57 Labs: Abnormal Lab Results - Last 24 Hours (Table) 12/08/23 12/08/23 Range/Units 06:57 06:57 WBC 13.68 H (4.50-10.00) X 10*3/uL RBC 3.95 L (4.40-5.60) X 10*6/uL Hgb 12.0 L (13.0-17.0) g/dL Hct 38.0 L (39.6-50.0) % MCHC 31.6 L (32.0-37.0) g/dL MPV 12.7 H (9.5-12.2) FL Neutrophils # 12.22 H (1.80-7.70) X 10*3/uL Lymphocytes # 0.55 L (0.90-5.00) X 10*3/uL Eosinophils # 0 L (0.04-0.35) X 10*3/uL Carbon Dioxide 19.2 L (21.6-31.8) mmol/L Anion Gap 14.80 H (4.00-12.00) mmol/L BUN 7.9 L (9.0-27.0) mg/dL BUN/Creatinine Ratio 6.58 L (12.00-20.00) Ratio Glucose 197 H (70-110) mg/dL Calcium 8.2 L (8.7-10.3) mg/dL Total Protein 5.7 L (6.2-8.2) g/dL
[2023-12-09 09:37] LABS: Basophils # (A) 0.03 X 10*3/uL (0.00-0.10); Basophils % (A) 0.3 %; Eosinophils # (A) 0.03 X 10*3/uL (0.04-0.35); Eosinophils % (A) 0.3 %; HCT 35.8 % (39.6-50.0); HGB 10.9 g/dL (13.0-17.0); Lymphocytes # (A) 1.41 X 10*3/uL (0.90-5.00); Lymphocytes % (A) 13.3 %; MCH 29.7 pg (27.0-32.0); MCHC 30.4 g/dL (32.0-37.0); MCV 97.5 FL (80.0-97.0); Mean Platelet Volume 12.8 FL (9.5-12.2); Monocytes # (A) 0.87 X 10*3/uL (0.20-1.00); Monocytes % (A) 8.2 %; NRBC Per 100 WBC 0 X 10*3/uL (0.00-0.01); Neutrophils # (A) 8.21 X 10*3/uL (1.80-7.70); Neutrophils % (A) 77.6 %; Platelet Count 137 X 10*3/uL (140-440); RBC 3.67 X 10*6/uL (4.40-5.60); RDW 14.2 % (11.5-14.5); WBC 10.58 X 10*3/uL (4.50-10.00)
[2023-12-09 09:54] LABS: Blood Urea Nitrogen 5.5 mg/dL (9.0-27.0); Calcium 8.5 mg/dL (8.7-10.3); Carbon Dioxide 26.5 mmol/L (21.6-31.8); Chloride 107 mmol/L (96-109); Glucose 116 mg/dL (70-110); Magnesium 1.6 mg/dL (1.5-2.4); Potassium 4.4 mmol/L (3.5-5.5); Sodium 142 mmol/L (135-145)
--- NOTE | 2023-12-09 12:07 | P.PN ---
Subjective his is a 63-year-old gentleman with past medical history significant for colectomy with ostomy secondary to perforated diverticulitis, scheduled for colostomy reversal today, completed colonoscopy yesterday. Status post enemas, currently completing GoLytely prep. afebrile, normal WBC, hemoglobin 13.2, platelets 146. Sodium 140, potassium 3.5-supplement ordered bicarb 21, BUN 7, creatinine 0.93, T. bili 1.9. Denies chest pain, palpitation or shortness of breath. Maintaining O2 sats in the high 90s on room air. December 08, 2023: Patient was reevaluated today he is postop day 1 reversal robotic assisted closure of colostomy and sigmoid colectomy with low anterior resection With colonoscopy. He has an epidural in place. He has a Ley catheter to gravity has they are unable to place Ley catheter during his surgery. Dr. Chavez was consulted for this. His vitals are stable. Labs show reactive the surgery. Otherwise Karthik has no complaints no chest pain shortness of breath nausea or vomiting. 08/10/2023: Patient is postop day of robotic assisted closure of colostomy and sigmoid colectomy with low anterior resection. He is doing well. He has minimal pain. He has an epidural line. He remains with Ley to drainage due to his urinary stricture. He denies any chest pains pressure shortness of breath or nausea or vomiting. Objective - Vital Signs Vital signs: Vital Signs Temp 99.5 F 12/09/23 06:47 Pulse 85 12/09/23 06:47 Resp 17 12/09/23 06:47 BP 127/51 12/09/23 06:47 Pulse Ox 96 12/09/23 06:47 FiO2 Intake & Output 12/08/23 12/09/23 12/09/23 18:59 06:59 18:59 Intake Total 171.5 Output Total 1100 Balance -928.5 Intake: Intake, IV Titration 171.5 Amount Ropivacaine 250 mg 171.5 Hydromorphone (Pf) 5 mg In Sodium Chloride 0.9% 200 ml @ Per Protocol EPIDURAL .Q0M PRN Rx#: [id number] Output: Urine 1100 Other: Voiding Method Indwelling Catheter Indwelling Catheter Indwelling Catheter - Exam General: The patient is awake and alert, in no distress, and appears comfortable. There is an epidural catheter and Ley catheter noted in place Neck: The neck is supple, there is no thyromegaly, lymphadenopathy, tenderness or JVD. Cardiovascular: S1S2 is normal, There is a regular rate and rhythm. No murmur, rub or gallop is appreciated. Respiratory: Lungs are clear to auscultation bilaterally, respirations are non-labored, breath sounds are equal. Gastrointestinal: Soft, normal bowel sounds, dressing to left lower quadrant intact Musculoskeletal: Normal ROM, no tenderness, There is no pedal edema. There is no calf tenderness or swelling. No cords were appreciated. Neurological: CN II-XII intact, there are no obvious motor or sensory deficits. Coordination appears grossly intact. Speech is normal. Skin: Skin is warm and dry and no rashes or lesions are noted. - Labs CBC & Chem 7: 12/09/23 04:50 12/09/23 04:50 Labs: Abnormal Lab Results - Last 24 Hours (Table) 12/09/23 12/09/23 Range/Units 04:50 04:50 WBC 10.58 H (4.50-10.00) X 10*3/uL RBC 3.67 L (4.40-5.60) X 10*6/uL Hgb 10.9 L (13.0-17.0) g/dL Hct 35.8 L (39.6-50.0) % MCV 97.5 H (80.0-97.0) FL MCHC 30.4 L (32.0-37.0) g/dL Plt Count 137 L (140-440) X 10*3/uL MPV 12.8 H (9.5-12.2) FL Neutrophils # 8.21 H (1.80-7.70) X 10*3/uL Eosinophils # 0.03 L (0.04-0.35) X 10*3/uL BUN 5.5 L (9.0-27.0) mg/dL BUN/Creatinine Ratio 5.00 L (12.00-20.00) Ratio Glucose 116 H (70-110) mg/dL Calcium 8.5 L (8.7-10.3) mg/dL Assessment and Plan Plan: Status post colectomy and ostomy reversal, postop day #2 History of small bowel obstruction June 2023 with temporary colostomy Urinary stricture, now with Ley catheter Hyperlipidemia continue care, will repeat labs in a.m., reevaluate next 24 hours.
--- NOTE | 2023-12-09 16:39 | P.PN ---
Progress Note - Text Progress Note Date: 12/09/23 Postoperative day #2 status post low , robotic colostomy closure ,epidural catheter placed for postoperative analgesia, patient doing well epidural site okay, patient currently on combination of epidural infusion solution of Ropivacaine 0.0625% and Dilaudid 20 g per mL the infusion rate at 6 ml per hour , patient had no motor deficit epidural site okay , vital signs stable ,VAS 0-2 /10 , Assessment and plan= post operative day #2 patient doing well ,pain well controlled , there is no anesthesia related complications
--- NOTE | 2023-12-10 06:42 | P.PN ---
Progress Note - Text Progress Note Date: 12/10/23 Postoperative day #3 status post low , robotic colostomy closure ,epidural catheter placed for postoperative analgesia, patient doing well epidural site okay, patient currently on combination of epidural infusion solution of Ropivacaine 0.0625% and Dilaudid 20 g per mL the infusion rate at 6 ml per hour , patient had no motor deficit epidural site okay , vital signs stable ,VAS 0-2 /10 , Assessment and plan= post operative day #3 patient doing well ,pain well controlled , there is no anesthesia related complications Epidural catheter will be discontinued today ,after patient seen by Dr Armstrong
[2023-12-10 09:12] LABS: Blood Urea Nitrogen 7.2 mg/dL (9.0-27.0); Calcium 9.1 mg/dL (8.7-10.3); Carbon Dioxide 29.8 mmol/L (21.6-31.8); Chloride 100 mmol/L (96-109); Glucose 141 mg/dL (70-110); Potassium 4.3 mmol/L (3.5-5.5); Sodium 139 mmol/L (135-145)
[2023-12-10 09:45] LABS: Basophils # (A) 0.03 X 10*3/uL (0.00-0.10); Basophils % (A) 0.3 %; Eosinophils # (A) 0.11 X 10*3/uL (0.04-0.35); Eosinophils % (A) 1.2 %; HCT 39.9 % (39.6-50.0); HGB 12.9 g/dL (13.0-17.0); Lymphocytes # (A) 1.09 X 10*3/uL (0.90-5.00); Lymphocytes % (A) 11.9 %; MCH 30.1 pg (27.0-32.0); MCHC 32.3 g/dL (32.0-37.0); MCV 93.2 FL (80.0-97.0); Mean Platelet Volume 12.6 FL (9.5-12.2); Monocytes # (A) 0.76 X 10*3/uL (0.20-1.00); Monocytes % (A) 8.3 %; NRBC Per 100 WBC 0 X 10*3/uL (0.00-0.01); Neutrophils # (A) 7.15 X 10*3/uL (1.80-7.70); Neutrophils % (A) 77.9 %; Platelet Count 167 X 10*3/uL (140-440); RBC 4.28 X 10*6/uL (4.40-5.60); RDW 14.3 % (11.5-14.5); WBC 9.18 X 10*3/uL (4.50-10.00)
[2023-12-10] MEDS: ACETAMINOPHEN TAB 500 MG TAB PO SCH (11:53)
--- NOTE | 2023-12-10 13:44 | P.PN ---
Subjective Progress Note Date: 12/10/23 CHIEF COMPLAINT: History of perforated sigmoid diverticulitis HISTORY OF PRESENT ILLNESS: The patient is a 67-year-old female who presented 2 months ago with sepsis from perforated appendicitis and perforated diverticulitis. He is status post robotic lysis of adhesions, closure of colostomy/Nicholas's and sigmoid colectomy with low anterior resection. Patient has epidural in place. Pain is controlled. Has Ley catheter in place. Denies any nausea or vomiting. Afebrile. Mild tachycardia last night not resolved. Still no bowel activity. Patient does report burping. PHYSICAL EXAM: VITAL SIGNS: Reviewed GENERAL: Well-developed in no acute distress. HEENT: No sclera icterus. Extraocular movements grossly intact. Moist buccal mucosa. Head is atraumatic, normocephalic. Hears conversational speech. No nasal drainage. NECK: Supple without lymphadenopathy. CHEST: Non-labored respirations and equal bilateral excursions. CARDIOVASCULAR: Palpable 2+ radial pulses. ABDOMEN: Soft. Nondistended. Prevena wound vac intact MUSCULOSKELETAL: No clubbing or cyanosis. NEUROLOGIC: No focal or lateralizing signs. Cranial nerves II through XII grossly intact. PSYCH: Appropriate affect. Alert and oriented to person, place and time. SKIN: Well perfused. Good skin turgor. ASSESSMENT: 1. Perforated sigmoid diverticulitis with descending colostomy and sepsis history PLAN: -Epidural discontinued today -IV Dilaudid as needed and scheduled oral Tylenol ordered for pain control -Continue low fiber diet -Encourage patient to ambulate -Anticipate removal of Ley catheter tomorrow -Continue Entereg -Continue IV fluids -DVT prophylaxis subcu heparin Physician End User Support Specialist note has been reviewed by physician. Signing provider agrees with the documented findings, assessment, and plan of care. Objective - Vital Signs Vital signs: Vital Signs Temp 98.5 F 12/10/23 07:56 Pulse 91 12/10/23 07:56 Resp 17 12/10/23 07:56 BP 113/72 12/10/23 07:56 Pulse Ox 95 12/10/23 07:56 FiO2 Intake & Output 12/09/23 12/10/23 12/10/23 18:59 06:59 18:59 Output Total 2420 3200 950 Balance -2420 -3200 -950 Output: Urine 2420 3200 950 Other: Voiding Method Indwelling Catheter Indwelling Catheter Indwelling Catheter - Labs CBC & Chem 7: 12/10/23 05:05 12/10/23 05:05 Labs: Abnormal Lab Results - Last 24 Hours (Table) 12/10/23 12/10/23 Range/Units 05:05 05:05 RBC 4.28 L (4.40-5.60) X 10*6/uL Hgb 12.9 L (13.0-17.0) g/dL MPV 12.6 H (9.5-12.2) FL BUN 7.2 L (9.0-27.0) mg/dL BUN/Creatinine Ratio 8.00 L (12.00-20.00) Ratio Glucose 141 H (70-110) mg/dL
--- NOTE | 2023-12-10 16:40 | P.PN ---
Subjective Progress Note Date: 12/10/23 12/07/2023 this is a 63-year-old gentleman with past medical history significant for colectomy with ostomy secondary to perforated diverticulitis, scheduled for colostomy reversal today, completed colonoscopy yesterday. Status post enemas, currently completing GoLytely prep. afebrile, normal WBC, hemoglobin 13.2, platelets 146. Sodium 140, potassium 3.5-supplement ordered bicarb 21, BUN 7, creatinine 0.93, T. bili 1.9. Denies chest pain, palpitation or shortness of breath. Maintaining O2 sats in the high 90s on room air. December 08, 2023: Patient was reevaluated today he is postop day 1 reversal robotic assisted closure of colostomy and sigmoid colectomy with low anterior resection With colonoscopy. He has an epidural in place. He has a Ley catheter to gravity has they are unable to place Ley catheter during his surgery. Dr. Chavez was consulted for this. His vitals are stable. Labs show reactive the surgery. Otherwise Karthik has no complaints no chest pain shortness of breath nausea or vomiting. 08/10/2023: Patient is postop day 2 of robotic assisted closure of colostomy and sigmoid colectomy with low anterior resection. He is doing well. He has minimal pain. He has an epidural line. He remains with Ley to drainage due to his urinary stricture. He denies any chest pains pressure shortness of breath or nausea or vomiting. 08/11/2023 significant clinical improvement. Postop day #3. Ambulating, tolerating exertion well. Incentive spirometer [id number]. Pain controlled with epidural. Tolerating low fiber diet, denies nausea or vomiting. Blood sugars controlled. no bowel movement, not passing flatus, positive burping. Occasional mild tachycardia, Tmax 99.8, WBC has normalized, 9.18. Maintained on cefazolin, Flagyl and IV fluids. hemoglobin 12.9, platelets 167, electrolytes within normal limits. BUN 7.2, creatinine 0.9. Objective - Vital Signs Vital signs: Vital Signs Temp 98.5 F 12/10/23 07:56 Pulse 91 12/10/23 07:56 Resp 17 12/10/23 07:56 BP 113/72 12/10/23 07:56 Pulse Ox 95 12/10/23 07:56 FiO2 Intake & Output 12/09/23 12/10/23 12/10/23 18:59 06:59 18:59 Output Total 2420 3200 950 Balance -2420 -3200 -950 Output: Urine 2420 3200 950 Other: Voiding Method Indwelling Catheter Indwelling Catheter Indwelling Catheter - Exam General: Alert and oriented 3, sitting up at bedside, no acute distress, epidural and Ley catheter present. HEENT: Atraumatic,Normocephalic, PERRL. EOMI. MMM. Neck: Supple, no JVD Cardiac: [Heart regular in rate and rhythm. No S3. No S4. No clicks, rubs. No murmur. Lungs: Unlabored, equal air entry, Clear to auscultation bilaterally. Abdomen: Soft, prevana wound VAC present Extremes: no edema, no cyanosis no claudication normal pulses Skin: Warm and dry, no rashes noted Neurologic: CN II - XII grossly intact. No focal deficits - Labs CBC & Chem 7: 12/10/23 05:05 12/10/23 05:05 Labs: Abnormal Lab Results - Last 24 Hours (Table) 12/10/23 12/10/23 Range/Units 05:05 05:05 RBC 4.28 L (4.40-5.60) X 10*6/uL Hgb 12.9 L (13.0-17.0) g/dL MPV 12.6 H (9.5-12.2) FL BUN 7.2 L (9.0-27.0) mg/dL BUN/Creatinine Ratio 8.00 L (12.00-20.00) Ratio Glucose 141 H (70-110) mg/dL Assessment and Plan Assessment: History of colectomy with colostomy secondary to perforated diverticulitis, status post ostomy reversal Urethral stricture, status post dilation with Ley catheter placement via urology Plan: Continue on current medication regimen ,monitoring and symptomatic treatment. Maintain IV fluid hydration, antibiotics and flagyl. Epidural ordered to be discontinued later today after evaluated by general surgeon. Pain management as per general surgery. Potential DC of Ley catheter tomorrow. Continue aggressive pulmonary toileting with incentive spirometer reinforced. Increase activity as tolerated. The impression and plan of care has been dictated as directed. .: I performed a history and examination of this patient, discussed the same with the dictator. I agree with the dictator's note ,documented as a scribe. Any additional findings or plans will be noted.
--- NOTE | 2023-12-11 09:14 | P.PN ---
Subjective Progress Note Date: 12/11/23 12/07/2023 this is a 63-year-old gentleman with past medical history significant for colectomy with ostomy secondary to perforated diverticulitis, scheduled for colostomy reversal today, completed colonoscopy yesterday. Status post enemas, currently completing GoLytely prep. afebrile, normal WBC, hemoglobin 13.2, platelets 146. Sodium 140, potassium 3.5-supplement ordered bicarb 21, BUN 7, creatinine 0.93, T. bili 1.9. Denies chest pain, palpitation or shortness of breath. Maintaining O2 sats in the high 90s on room air. December 08, 2023: Patient was reevaluated today he is postop day 1 reversal robotic assisted closure of colostomy and sigmoid colectomy with low anterior resection With colonoscopy. He has an epidural in place. He has a Ley catheter to gravity has they are unable to place Ley catheter during his surgery. Dr. Chavez was consulted for this. His vitals are stable. Labs show reactive the surgery. Otherwise Karthik has no complaints no chest pain shortness of breath nausea or vomiting. 08/10/2023: Patient is postop day 2 of robotic assisted closure of colostomy and sigmoid colectomy with low anterior resection. He is doing well. He has minimal pain. He has an epidural line. He remains with Ley to drainage due to his urinary stricture. He denies any chest pains pressure shortness of breath or nausea or vomiting. 08/11/2023 significant clinical improvement. Postop day #3. Ambulating, tolerating exertion well. Incentive spirometer [id number]. Pain controlled with epidural. Tolerating low fiber diet, denies nausea or vomiting. Blood sugars controlled. no bowel movement, not passing flatus, positive burping. Occasional mild tachycardia, Tmax 99.8, WBC has normalized, 9.18. Maintained on cefazolin, Flagyl and IV fluids. hemoglobin 12.9, platelets 167, electrolytes within normal limits. BUN 7.2, creatinine 0.9. 08/12/2023 maintained on IV fluid hydration, cefazolin, Flagyl. epidural discontinued yesterday, pain controlled. Ambulating, tolerating exertion well, denies chest pain, palpitations or shortness of breath. Tolerating low fiber diet with no nausea vomiting. Began having loose bowel movements last night and this morning for total of 4 thus far. Reports loose not diarrhea, light brown in color, no blood. Denies pain with defecation. Afebrile. Maintaining O2 sats in the mid 90s on room air. Continues to pull [id number] on his incentive spirometer. Trial of void with Ley catheter to be discontinued this morning. Objective - Vital Signs Vital signs: Vital Signs Temp 97.9 F 12/11/23 07:06 Pulse 97 12/11/23 07:06 Resp 16 12/11/23 07:06 BP 104/67 12/11/23 07:06 Pulse Ox 95 12/11/23 07:06 FiO2 Intake & Output 12/10/23 12/11/23 12/11/23 18:59 06:59 18:59 Output Total 1575 2220 800 Balance -1575 -2220 -800 Output: Urine 1575 2220 800 Other: Voiding Method Indwelling Catheter Indwelling Catheter Indwelling Catheter # Bowel Movements 1 - Exam General: Alert and oriented 3, sitting up at bedside, no acute distress HEENT: Atraumatic,Normocephalic, PERRL. EOMI. MMM. Neck: Supple, no JVD Cardiac: [Heart regular in rate and rhythm. No murmur. Lungs: Unlabored, equal air entry, Clear to auscultation bilaterally. Abdomen: Soft, prevana wound VAC present. Extremes: no edema, no cyanosis no claudication normal pulses Skin: Warm and dry, no rashes noted Neurologic: CN II - XII grossly intact. No focal deficits - Labs CBC & Chem 7: 12/10/23 05:05 12/10/23 05:05 Labs: Abnormal Lab Results - Last 24 Hours (Table) 12/10/23 12/10/23 Range/Units 05:05 05:05 RBC 4.28 L (4.40-5.60) X 10*6/uL Hgb 12.9 L (13.0-17.0) g/dL MPV 12.6 H (9.5-12.2) FL BUN 7.2 L (9.0-27.0) mg/dL BUN/Creatinine Ratio 8.00 L (12.00-20.00) Ratio Glucose 141 H (70-110) mg/dL Assessment and Plan Assessment: History of colectomy with colostomy secondary to perforated diverticulitis, status post ostomy reversal Urethral stricture, status post dilation with Ley catheter placement via urology Plan: Continue on current medication regimen ,monitoring and symptomatic treatment. Discharge planning in progress as per general surgery. Trial void with Ley catheter to be discontinued this morning, continue on Flomax.Pain management as per general surgery. Continue aggressive pulmonary toileting with incentive spirometer reinforced. Follow-up with PCP in 1 week. The impression and plan of care has been dictated as directed. : I performed a history and examination of this patient, discussed the same with the dictator. I agree with the dictator's note ,documented as a scribe. Any additional findings or plans will be noted.
[2023-12-11 10:04] LABS: BUN/Creat Ratio 10.33 Ratio (12.00-20.00); Blood Urea Nitrogen 9.3 mg/dL (9.0-27.0); Calcium 8.9 mg/dL (8.7-10.3); Carbon Dioxide 26.4 mmol/L (21.6-31.8); Chloride 105 mmol/L (96-109); Glucose 120 mg/dL (70-110); Magnesium 1.7 mg/dL (1.5-2.4); Potassium 3.9 mmol/L (3.5-5.5); Sodium 140 mmol/L (135-145)
[2023-12-11 10:18] LABS: Basophils % (A) 0 %; Eosinophils # (A) 0.3 k/uL (0-0.7); Eosinophils % (A) 4 %; HCT 36.7 % (39.0-53.0); HGB 12.1 gm/dL (13.0-17.5); Lymphocytes # (A) 1.5 k/uL (1.0-4.8); Lymphocytes % (A) 20 %; MCH 30.6 pg (25.0-35.0); MCHC 32.9 g/dL (31.0-37.0); Mean Platelet Volume 11.2; Monocytes # (A) 0.6 k/uL (0-1.0); Monocytes % (A) 8 %; Neutrophils # (A) 4.9 k/uL (1.3-7.7); Neutrophils % (A) 65 %; Platelet Count 182 k/uL (150-450); RBC 3.95 m/uL (4.30-5.90); RDW 14.1 % (11.5-15.5); WBC 7.6 k/uL (3.8-10.6)
[2023-12-11 13:36] VITALS: BP 150/79; PULSE 91; RESP 17; TEMP 97.6
--- NOTE | 2023-12-11 13:55 | P.DS ---
Providers Date of admission: 12/06/23 11:13 Expected date of discharge: 12/11/23 Attending physician: Gabby Armstrong Consults: 12/06/23 23:39 Consult Physician Routine Consulting Provider: Demario Del Rosario Jr Consult Reason/Comments: medical management Do you want consulting provider notified?: Yes, Notify in am 12/07/23 15:56 Consult Physician Urgent Consulting Provider: Santos Nation Consult Reason/Comments: Urethral Stricture Do you want consulting provider notified?: Yes Primary care physician: Demario Del Rosario Hospital Course: Discharge diagnosis 1. Perforated sigmoid diverticulitis with descending colostomy and sepsis history Hospital course The patient is a 67-year-old female who presented 2 months ago with sepsis from perforated appendicitis and perforated diverticulitis. She underwent exploratory laparotomy for peritonitis and descending colostomy status/Grimm's procedure. Patient is status post robotic lysis of adhesions, closure of colostomy and sigmoid colectomy with low anterior resection. Patient tolerated surgery well. His pain is controlled. He is up and ambulating. He is having bowel movements. Denies any difficulty urinating. He is afebrile. He is stable for discharge. Physician Salvager note has been reviewed by physician. Signing provider agrees with the documented findings, assessment, and plan of care. Patient Condition at Discharge: Stable Plan - Discharge Summary Discharge Rx Participant: Yes New Discharge Prescriptions: New Acetaminophen Tab [Tylenol] 1,000 mg PO Q6HR PRN #30 tablet PRN Reason: Pain Continue Cetirizine HCl [Zyrtec] 10 mg PO QAM Atorvastatin [Lipitor] 40 mg PO PC-SUPPER Discontinued Aleve(Unknown Dose) 1 dose PO Q8H PRN PRN Reason: Pain Discharge Medication List Atorvastatin [Lipitor] 40 mg PO PC-SUPPER 06/13/23 [History] Cetirizine HCl [Zyrtec] 10 mg PO QAM 06/13/23 [History] Acetaminophen Tab [Tylenol] 1,000 mg PO Q6HR PRN #30 tablet 12/11/23 [Rx] Follow up Appointment(s)/Referral(s): Gabby Armstrong MD [STAFF PHYSICIAN] - 01/01/24 Activity/Diet/Wound Care/Special Instructions: No lifting over 4 pounds in 4 weeks. You May shower. Cover the Prevana dressing. No bath tub soaks for two weeks Follow a low fiber diet. No SEEDS, no broccoli and no nuts Use Tylenol scheduled for the next 24-48 hours for best pain relief. Use ice along incisions for the today to prevent swelling. Continue the Prevana wound vac until the battery pack runs out. Should last for about 1 week after surgery. When Prevana wound vac is removed. You can shower and wash incision. Discharge Disposition: HOME SELF-CARE
== END 2023-12-11 15:20 | disposition home or self-care (01) | DRG 330 ==
LOC: ORWHC2ENDO 11:12 → 4SSUR 11:13
PROVIDERS: ADMIT Surgery Plastic and Reconstructive Surgery; ATTEND Surgery Plastic and Reconstructive Surgery
PROC: 0DBL8ZX Excision of Transverse Colon, Via Natural or Artificial Opening Endoscopic, Diagnostic (ICD-10-PCS; principal; 2023-12-06 12:00)
PROC: 0T7D7ZZ Dilation of Urethra, Via Natural or Artificial Opening (ICD-10-PCS; 2023-12-07 13:10)
PROC: 0DTP4ZZ Resection of Rectum, Percutaneous Endoscopic Approach (ICD-10-PCS; 2023-12-07 13:10)
PROC: 0DBN4ZZ Excision of Sigmoid Colon, Percutaneous Endoscopic Approach (ICD-10-PCS; 2023-12-07 13:10)
PROC: 0DSM4ZZ Reposition Descending Colon, Percutaneous Endoscopic Approach (ICD-10-PCS; 2023-12-07 13:10)
PROC: 0DN84ZZ Release Small Intestine, Percutaneous Endoscopic Approach (ICD-10-PCS; 2023-12-07 13:10)
PROC: 0DNU4ZZ Release Omentum, Percutaneous Endoscopic Approach (ICD-10-PCS; 2023-12-07 13:10)
PROC: 8E0W4CZ Robotic Assisted Procedure of Trunk Region, Percutaneous Endoscopic Approach (ICD-10-PCS; 2023-12-07 13:10)
PROC: 0DNW4ZZ Release Peritoneum, Percutaneous Endoscopic Approach (ICD-10-PCS; 2023-12-07 13:10)
PROC: 0DJD8ZZ Inspection of Lower Intestinal Tract, Via Natural or Artificial Opening Endoscopic (ICD-10-PCS; 2023-12-07 13:10)
DX: Z43.3 Encounter for attention to colostomy (principal); K57.32 Diverticulitis of large intestine without perforation or abscess without bleeding; R35.0 Frequency of micturition; E78.5 Hyperlipidemia, unspecified; D12.3 Benign neoplasm of transverse colon; E87.6 Hypokalemia; N35.919 Unspecified urethral stricture, male, unspecified site; K66.0 Peritoneal adhesions (postprocedural) (postinfection); R33.9 Retention of urine, unspecified; R00.0 Tachycardia, unspecified; Z79.899 Other long term (current) drug therapy
CPT/HCPCS: 44394; 80048; 80053; 83735; 85025; 85610; 88305

== ENCOUNTER → 2024-09-11 | Outpatient (CLI) | payer MEDICAID ==
[2024-09-11 18:33] LABS: Basophils # (A) 0.06 X 10*3/uL (0.00-0.10); Basophils % (A) 0.7 %; Eosinophils # (A) 0.48 X 10*3/uL (0.04-0.35); HGB 14.1 g/dL (13.0-17.0); Lymphocytes # (A) 2.68 X 10*3/uL (0.90-5.00); Lymphocytes % (A) 33.3 %; MCH 30.6 pg (27.0-32.0); MCHC 31.3 g/dL (32.0-37.0); MCV 97.6 FL (80.0-97.0); Mean Platelet Volume 11.9 FL (9.5-12.2); Monocytes # (A) 0.75 X 10*3/uL (0.20-1.00); Monocytes % (A) 9.3 %; NRBC Per 100 WBC 0 X 10*3/uL (0.00-0.01); Neutrophils # (A) 4.07 X 10*3/uL (1.80-7.70); Neutrophils % (A) 50.5 %; Platelet Count 229 X 10*3/uL (140-440); RBC 4.61 X 10*6/uL (4.40-5.60); RDW 12.8 % (11.5-14.5); WBC 8.06 X 10*3/uL (4.50-10.00)
[2024-09-11 18:56] LABS: ALT 27 U/L (10-49); AST 26 U/L (14-35); Albumin 4.6 g/dL (3.8-4.9); Alkaline Phosphatase 77 U/L (41-126); BUN/Creat Ratio 14.36 Ratio (12.00-20.00); Blood Urea Nitrogen 15.8 mg/dL (9.0-27.0); Calcium 9.9 mg/dL (8.7-10.3); Carbon Dioxide 27.9 mmol/L (21.6-31.8); Chloride 106 mmol/L (96-109); Chol/HDL Ratio 2.96 Ratio; Globulin 2.3 g/dL (1.6-3.3); Glucose 94 mg/dL (70-110); Potassium 4.3 mmol/L (3.5-5.5); Prostate Specific Antigen 0.42 ng/mL (0.000-4.500); Sodium 145 mmol/L (135-145); Total Protein 6.9 g/dL (6.2-8.2)
== END | disposition home or self-care (01) ==
LOC: LABWHC1 12:28
PROVIDERS: ATTEND Family Medicine
DX: Z00.00 Encounter for general adult medical examination without abnormal findings (principal); Z12.5 Encounter for screening for malignant neoplasm of prostate; E78.5 Hyperlipidemia, unspecified; Z90.49 Acquired absence of other specified parts of digestive tract
CPT/HCPCS: 36415; 80053; 80061; 84153; 85025